=== PATIENT | male | born 1965 | race Caucasian/White ===

== ENCOUNTER 2024-07-31 08:07 | Emergency (ER) | payer MEDICAID ==
[~2024-07-31] VITALS: Ht 175.3 cm; Wt 73.5 kg
[~2024-07-31 08:07] MED LIST: AZIT500T66 PO; LEVO500T91 PO; PROM1SOL4 PO
--- NOTE | 2024-07-31 08:27 | ECG ---
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
--- NOTE | 2024-07-31 08:31 | ED.PDOC ---
SOB-HPI HPI Comments 59-year-old male with PMHx Emphysema, COPD, HTN presents with a chief complaint of SOB, cough, and chest pain x 3 days. Patient states that his pain is localized to his sternum, nonradiating, is worse when coughing, and rates his pain a 7/10. Patient reports that he is homeless right now and has an albuterol inhaler, but does not know how to use it. Patient is hypertensive on arrival at 219/123 and is sating at 93% on room air. Patient was placed on 2L/NC and is now sating at 95%. Patient is also tachycardic at 130s. Chief Complaint: Shortness of Breath Time Seen by MD: 08:15 Primary Care Provider: NONE Reviewed notes: Medications, Allergies Information Source: Patient Mode of Arrival: Ambulatory Severity: Moderate Timing: Days Duration: Since onset Context: At Rest PE Risk Factors: None History of: COPD Prehospital treatment: None Modifying Factors: Inhaler Associated Signs and Symptoms: Cough, Chest Pain Quality: Aching Radiation: No Radiation Location: Substernal If cough with SOB: Non-Productive Past Medical History PAST MEDICAL HISTORY: COPD Surgical History: Denies all surgeries Family History Family History: Reviewed,noncontributory to illness Social History Smoker: Cigarettes Alcohol: Denies ETOH Use Drugs: Denies Drug Use Lives In: Home Constitutional: denies: chills, diaphoresis, fatigue, fever, malaise, sweats, weakness, others EENTM: denies: blurred vision, double vision, ear bleeding, ear discharge, ear drainage, ear pain, ear ringing, eye pain, eye redness, hearing loss, mouth pain, mouth swelling, nasal discharge, nose bleeding, nose congestion, nose pain, photophobia, tearing, throat pain, throat swelling, voice changes, others Respiratory: reports: cough, shortness of breath; denies: hemoptysis, orthopnea, SOB at rest, SOB with excertion, stridor, wheezing, others Cardiovascular: reports: chest pain; denies: dizzy spells, diaphoresis, Dyspnea on exertion, edema, irregular heart beat, left arm pain, lightheadedness, palpitations, PND, syncope, others Gastrointestinal: denies: abdomen distended, abdominal pain, blood streaked bowels, constipated, diarrhea, dysphagia, difficulty swallowing, hematemesis, melena, nausea, poor appetite, poor fluid intake, rectal bleeding, rectal pain, vomiting, others Genitourinary: denies: burning, dysuria, flank pain, frequency, hematuria, incontinence, penile discharge, penile sore, pain, testicle pain, testicle swelling, urgency, others Neurological: denies: dizziness, fainting, headache, left sided numbness, left sided weakness, numbness, paresthesia, pre-existing deficit, right sided numbness, right sided weakness, seizure, speech problems, tingling, tremors, weakness, others Musculoskeletal: denies: back pain, gout, joint pain, joint swelling, muscle pain, muscle stiffness, neck pain, others Integumetry: denies: bruises, change in color, change in hair/nails, dryness, laceration, lesions, lumps, rash, wounds, others Allergic/Immunocompromised: denies: Difficulty Healing, Frequent Infections, Hives, Itching, others Hematologic/Lymphatic: denies: anemia, blood clots, easy bleeding, easy bruising, swollen glands, others Endocrine: denies: excessive hunger, excessive sweating, excessive thirst, excessive urination, flushing, intolerance to cold, intolerance to heat, unexplained weight gain, unexplained weight loss, others Psychiatric: denies: anxiety, bipolar disorder, depression, hopeless, panic disorder, schizophrenia, sleepless, suicidal, others All Other Systems: Reviewed and Negative Physical Exam General Appearance: Moderate Distress, Normal HEENT: Normal ENT Inspection, Pharynx Normal, TMs Normal Neck: Full Range of Motion, Non-Tender, Normal, Normal Inspection Respiratory: Other (Decreased Air Movement in Lungs) Cardiovascular: No Edema, No JVD, No Murmur, No Gallop, Normal Peripheral Pulses, Tachycardia Breast Exam: Deferred Gastrointestinal: No Organomegaly, Non Tender, No Pulsatile Mass, Normal Bowel Sounds, Soft Genitalia: Deferred Pelvic: Deferred Rectal: Deferred Extremities: No calf tenderness, Normal capillary refill, Normal inspection, Normal range of motion, Non-tender, No pedal edema Musculoskeletal : Apperance: Normal Neurologic: Alert, director of materials management II-XII nml as Tested, No Motor Deficits, Normal Affect, Normal Mood, No Sensory Deficits Cerebellar Function: Normal Reflexes: Normal Skin: Dry, Normal Color, Warm Lymphatic: No Adenopathy EKG EKG : Pulse Rate (adult): 123 [place]: Normal Cardiac Rhythm: ST Block: None Hypertrophy: None ST: Normal Was a procedure done? Was a procedure done?: No Differential Dx Differential Diagnosis: Asthma, Bronchitis, CHF, COPD, Hypertension, Pneumonia, Pneumothorax, Pulmonary Embolism, Respiratory Distress, Pharyngitis, URI X-Ray, Labs, Meds, VS Vital Signs Date Time Temp Pulse Resp B/P (MAP) Pulse Ox O2 Delivery O2 Flow Rate FiO2 07/31/24 08:59 Nasal Cannula* 2 28 07/31/24 08:57 24 98 Room Air* 0 21 07/31/24 08:56 98.6 104 17 152/98 (116) 99 98.6 07/31/24 08:42 166/123 07/31/24 08:31 123 07/31/24 08:21 123 07/31/24 08:18 28 96 Nasal Cannula 2.0 07/31/24 08:18 98.5 134 28 202/131 (154) 96 Lab Test 07/31/24 08:24 Range/Units White Blood Count 9.5 4.4-10.8 10^3/uL Red Blood Count 5.08 4.5-5.90 10^6/uL Hemoglobin 15.5 13.5-17.5 g/dL Hematocrit 45.1 41.0-53.0 % Mean Corpuscular Volume 88.7 80.0-100.0 fL Mean Corpuscular Hemoglobin 30.5 28.0-32.0 pg Mean Corpuscular Hemoglobin Concent 34.4 32.0-36.0 g/dL Red Cell Distribution Width 13.3 11.8-14.3 % Platelet Count 243 140-450 10^3/uL Mean Platelet Volume 6.7 L 6.9-10.8 fL Neutrophils (%) (Auto) 87.0 H 37.0-80.0 % Lymphocytes (%) (Auto) 5.2 L 10.0-50.0 % Monocytes (%) (Auto) 6.2 0.0-12.0 % Eosinophils (%) (Auto) 1.1 0.0-7.0 % Basophils (%) (Auto) 0.5 0.0-2.0 % Neutrophils # (Auto) 8.3 1.6-8.6 10 ^3/uL Lymphocytes # (Auto) 0.5 0.4-5.4 10 ^3/uL Monocytes # (Auto) 0.6 0-1.3 10 ^3/uL Eosinophils # (Auto) 0.1 0-0.8 10 ^3/uL Basophils # (Auto) 0 0-0.2 10 ^3/uL Nucleated Red Blood Cells 0.1 % Sodium Level 135 L 136-145 mmol/L Potassium Level 3.8 3.5-5.1 mmol/L Chloride Level 100 98-107 mmol/L Carbon Dioxide Level 29 20-31 mmol/L Anion Gap 6 5-15 Blood Urea Nitrogen 11 9-23 mg/dL Creatinine 1.29 0.700-1.30 mg/dL Glomerular Filtration Rate Calc 64 >90 mL/min BUN/Creatinine Ratio 8.5 L 10.0-20.0 Serum Glucose 121 H 74-106 mg/dL Calcium Level 9.5 8.7-10.4 mg/dL Total Bilirubin 0.5 0.2-1.0 mg/dL Aspartate Amino Transferase (AST) 19 13-40 U/L Alanine Aminotransferase (ALT) 15 7-40 U/L Alkaline Phosphatase 82 46-116 U/L Troponin I High Sensitivity 8 </=54 ng/L Total Protein 7.3 5.7-8.2 g/dL Albumin 4.7 3.2-4.8 g/dL Current Medications Medications (Trade) Dose Ordered Sig/Sherine Route Start Time Stop Time Status Last Admin Hydralazine HCl (Apresoline Injection) 5 mg ONCE ONCE IV 07/31/24 08:30 07/31/24 08:31 DC 07/31/24 08:42 Albuterol (Ventolin Medneb) 5 mg ONCE ONCE NEB 07/31/24 08:30 07/31/24 08:31 DC 07/31/24 08:58 Ipratropium [place] (Atrovent Medneb) 0.5 mg ONCE ONCE NEB 07/31/24 08:30 07/31/24 08:31 DC 07/31/24 08:57 Dexamethasone Sodium Phosphate (Decadron Injection) 10 mg ONCE ONCE IV 07/31/24 08:30 07/31/24 08:31 DC 07/31/24 08:42 PATIENT: RAF PEGUERO FROYLANCCT: [id number]: [id number] : 1965 LOC: ER ROOM / BED: / AGE / SEX: 59 / M ADM STATUS: REG ER SERVICE 3 ORDERING PHYSICIAN: WILL CROCKER MD PROCEDURE(s): CXR2 - CHEST TWO VIEWS ROUTINE REASON: ro pna ORDER NUMBER(s): [id number], ACCESSION NUMBER(s): [id number] CLINICAL INFORMATION: 59 years old, Male; rule out pneumonia. TECHNIQUE: Frontal and lateral chest radiographs were obtained. COMPARISON: Radiograph dated 10/11/2023. FINDINGS: Lungs: Prominent interstitial opacities in the right mid lung and left lung base, appear stable compared to the prior exam suggesting chronic etiology such as interstitial lung disease or scarring. Similar-appearing emphysematous c hanges with prominent lucency in the left upper lung, likely due to bullous disease, unchanged. Cardiac: Heart size is within normal limits. Pulmonary vasculature: Unremarkable Mediastinum/sho: Within normal limits. Bones: No evidence of acute osseous abnormality. Other: No other significant finding. IMPRESSION: 1. Stable interstitial opacities in the right mid lung and left lung base may be sequela of chronic interstitial lung disease or scarring, similar to the prior radiographs. Correlate with clinical findings. No dense focal consolidation. 2. Emphysematous changes with prominent lucency in the left upper lung, likely due to bullous emphysematous changes, similar to prior exams. ATED BY: RAF FLYNN DO DICTATED DATE/TIME: 07/31/24904 SIGNED BY: RAF FLYNN DO SIGNED DATE/TIME: 07/31/24904 59-year-old male presents here with shortness of breath and high blood pressure. Patient was found to be saturating 93 96%, but had significant work of breathing. He was tachycardic at 134. Patient was found to have a blood pressure of 202/131. I was asked to see the patient immediately upon his arrival given his work of breathing his heart rate and his blood pressure. Concern for immediate deterioration. At this time I have given the patient br eathing treatments steroids blood work he was ordered. A CBC CMP were done which demonstrates no acute abnormality. EKG with no significant ST changes. First set troponin is negative. Chest x-ray demonstrates stable interstitial opacities in the right mid lung and left lung base. And emphysematous changes. Patient's symptoms did improve with treatment however plan was to admit the patient given his low oxygen saturation, hypertensive urgency and tachycardia given his work of breathing. However nursing staff unable to locate him at 10:10 a.m. as patient had eloped with IV in place. [facility]'s department has been called. Time of 1ST Reevaluation: 08:45 Reevaluation 1ST: Unchanged Patient Education/Counseling: Diagnosis, Treatment, Prognosis Family Education/Counseling: Diagnosis, Treatment, Prognosis Departure 1 Departure Time of Disposition: 10:15 Impression: Primary Impression: COPD exacerbation Additional Impression: Hypertensive urgency Disposition: 07 LEFT AWOL/ELOPED Admit to: Tele Condition: Fair Critical Care Note Critical Care Time?: Yes (35 min-critical care time only) Critical care comment: Patient immediately seen by myself in triage as concern for immediate de terioration due to his work of breathing, extremely high blood pressure and heart rate. Time was spent evaluating the patient, ordering treatments, multiple re-evaluations, directing care with nursing staff, admitting the patient. Stability Stability form required: No Heart Score Heart Score: Heart Score Response (Comments) Value History Highly Suspicious 2 EKG Normal 0 Age 45-64 1 Risk Factors 1 or 2 risk factors 1 Troponin Normal limit 0 Total 4 I personally scribed for WILL CROCKER MD ([email or web address]) on 07/31/24 at 08:31. Electronically submitted by Tim Chou ([email or web address]). I personally scribed for WILL CROCKER MD ([email or web address]) on 07/31/24 at 09:50. Electronically submitted by Tim Chou ([email or web address]). WILL CROCKER MD Jul 31, 2024 08:31
[2024-07-31 08:40] LABS: Basophils # (auto) 0 10 ^3/uL (0-0.2); Basophils % (auto) 0.5 % (0.0-2.0); Eosinophils # (auto) 0.1 10 ^3/uL (0-0.8); Eosinophils % (auto) 1.1 % (0.0-7.0); Hematocrit 45.1 % (41.0-53.0); Hemoglobin 15.5 g/dL (13.5-17.5); Lymphocytes # (auto) 0.5 10 ^3/uL (0.4-5.4); Lymphocytes % (auto) 5.2 % (10.0-50.0); Mean Corpuscular Hemoglobin 30.5 pg (28.0-32.0); Mean Corpuscular Hgb Conc. 34.4 g/dL (32.0-36.0); Mean Corpuscular Volume 88.7 fL (80.0-100.0); Monocytes # (auto) 0.6 10 ^3/uL (0-1.3); Monocytes % (auto) 6.2 % (0.0-12.0); Neutrophils # (auto) 8.3 10 ^3/uL (1.6-8.6); Nucleated Red Blood Cells % 0.1 %; Platelet Count (auto) 243 10^3/uL (140-450); Red Blood Cells 5.08 10^6/uL (4.5-5.90); Red Cell Distribution Width 13.3 % (11.8-14.3); White Blood Cell 9.5 10^3/uL (4.4-10.8)
[2024-07-31] MEDS: hydrALAZINE HCL 20 MG/ML VL IV ONE (08:42)
[2024-07-31] MEDS: DexAMETHasone SOD PHOS 10MG/1ML VIAL INJ IV ONE (08:42)
[2024-07-31 08:56] VITALS: BP 152/98; PULSE 104; TEMP 98.6
[2024-07-31 08:57] VITALS: RESP 24; O2SAT 98
[2024-07-31 08:57] LABS: Alanine Aminotransferase 15 U/L (7-40); Albumin 4.7 g/dL (3.2-4.8); Alkaline Phosphatase 82 U/L (46-116); Anion Gap 6 (5-15); Aspartate Aminotransferase 19 U/L (13-40); BUN/Creatinine Ratio 8.5 (10.0-20.0); Bilirubin, Total 0.5 mg/dL (0.2-1.0); Blood Urea Nitrogen 11 mg/dL (9-23); Calcium 9.5 mg/dL (8.7-10.4); Carbon Dioxide 29 mmol/L (20-31); Chloride 100 mmol/L (98-107); Potassium 3.8 mmol/L (3.5-5.1)
[2024-07-31] MEDS: IPRATROPIUM BROM 0.5 MG/2.5ML INH SOL NEB ONE (08:57)
[2024-07-31 08:58] LABS: Total Protein 7.3 g/dL (5.7-8.2)
[2024-07-31] MEDS: ALBUTEROL SULF 2.5 MG/0.5ML(0.5%) NEB SOLN NEB ONE (08:58)
[2024-07-31 09:01] LABS: Glucose 121 mg/dL (74-106); Sodium 135 mmol/L (136-145)
--- NOTE | 2024-07-31 09:08 | DVH ---
CLINICAL INFORMATION: 59 years old, Male; rule out pneumonia. TECHNIQUE: Frontal and lateral chest radiographs were obtained. COMPARISON: Radiograph dated 10/11/2023. FINDINGS: Lungs: Prominent interstitial opacities in the right mid lung and left lung base, appear stable yuriy red to the prior exam suggesting chronic etiology such as interstitial lung disease or scarring. Gia lar-appearing emphysematous changes with prominent lucency in the left upper lung, likely due to bull ous disease, unchanged. Cardiac: Heart size is within normal limits. Pulmonary vasculature: Unremarkable Mediastinum/sho: Within normal limits. Bones: No evidence of acute osseous abnormality. Other: No other significant finding. IMPRESSION: 1. Stable interstitial opacities in the right mid lung and left lung base may be sequela of chronic i nterstitial lung disease or scarring, similar to the prior radiographs. Correlate with clinical findi ngs. No dense focal consolidation. 2. Emphysematous changes with prominent lucency in the left upper lung, likely due to bullous emphyse matous changes, similar to prior exams.
== END 2024-07-31 10:30 | disposition left against medical advice (07) ==
LOC: ER 08:07
DX: J44.1 Chronic obstructive pulmonary disease with (acute) exacerbation (principal); I16.0 Hypertensive urgency; F17.210 Nicotine dependence, cigarettes, uncomplicated
CPT/HCPCS: 36415; 71046; 80053; 84484; 85025; 93005; 94640; 96374; 96375; 99291; J0360; J1100

== ENCOUNTER 2024-08-10 03:42 | Inpatient (IN) | payer MEDICAID ==
[~2024-08-10] VITALS: Ht 175.3 cm; Wt 68.8 kg
[2024-08-10] VITALS (7 sets, daily range): BP systolic 120–147; BP diastolic 70–100; PULSE 98–112; RESP 15–22; TEMP 97.9–98; O2SAT 90–98
--- NOTE | 2024-08-10 04:02 | ED.PDOC ---
History of Present Illness HPI Comments 59 y/o M, with a Hx of COPD and anxiety and cigarette use, presents with c/o shortness of breath, today. Patient is a poor historian and endorses on recent unprovoked onset of difficulty breathing for unknown duration of time. At time of initial assessment, patient was found with a Spo2 of 85%RA, respiratory rate of 24, pulse rate of 105, and a blood pressure of 186/117, with SpO2 improving to 93% s/p 4lpm O2 NC placement. Patient denies having any chest pain, cough, fever, chills, or other associated symptoms or modifiers at this time. Time Seen by MD: 03:50 Primary Care Provider: NONE Reviewed Notes: Nurses Notes, Medications, Allergies Allergies: Coded Allergies: Penicillins (Verified Allergy, Unknown, 10/11/23) Home Meds Active Scripts Promethazine-Dm (Promethazine Dm 6.25-15 mg/5Ml) 1 Melany Melany, 5 ML PO TID, #180 ML Prov:RAHEEM PEARSON 10/11/23 Azithromycin (Azithromycin) 500 Mg Tab, 1 TAB PO DAILY, #5 TAB Prov:RAHEEM PEARSON 10/11/23 Levofloxacin Hemihydrate (LEVAQUIN 500 MG) 500 Mg Tab, 1 TAB PO DAILY, #10 TAB Prov:RAHEEM PEARSON 10/11/23 Information Source: Patient Past Medical History PAST MEDICAL HISTORY: COPD Surgical History: Denies all surgeries Family History Family History: Reviewed,noncontributory to illness Social History Smoker: Cigarettes Alcohol: Denies ETOH Use Drugs: Denies Drug Use Lives In: Home Respiratory: reports: shortness of breath All Other Systems: Reviewed and Negative (negative unless otherwise stated above or in HPI) Physical Exam General Appearance: No Apparent Distress, Normal HEENT: Normal ENT Inspection, Pharynx Normal, TMs Normal Neck: Full Range of Motion, Non-Tender, Normal, Normal Inspection Respiratory: Chest Non-Tender, Decreased Breath Sounds, Lungs Clear, No Accessory Muscle Use, No Respiratory Distress Cardiovascular: No Edema, No JVD, No Murmur, No Gallop, Normal Peripheral Pulses, Regular Rate/Rhythm Breast Exam: Deferred Gastrointestinal: No Organomegaly, Non Tender, No Pulsatile Mass, Normal Bowel Sounds, Soft Genitalia: Deferred Pelvic: Deferred Rectal: Deferred Extremities: No calf tenderness, Normal capillary refill, Normal inspection, Normal range of motion, Non-tender, No pedal edema Musculoskeletal : Apperance: Normal Neurologic: Alert, retail team member II-XII nml as Tested, No Motor Deficits, Normal Affect, Normal Mood, No Sensory Deficits Cerebellar Function: Normal Reflexes: Normal Skin: Dry, Normal Color, Warm Lymphatic: No Adenopathy Was a procedure done? Was a procedure done?: No EKG EKG : Pulse Rate (adult): 90 [place]: Normal Cardiac Rhythm: NSR Block: None Hypertrophy: None ST: Normal Differential Dx Considerations may include: COPD exacerbation, URI, viral syndrome, bronchitis X-Ray, Labs, Meds, VS Vital Signs Date Time Temp Pulse Resp B/P (MAP) Pulse Ox O2 Delivery O2 Flow Rate FiO2 08/10/24 04:19 90 08/10/24 04:15 90 08/10/24 04:12 18 97 Nasal Cannula* 4 36 08/10/24 03:49 98.2 111 22 186/117 (140) 86 08/10/24 03:49 22 86 Room Air* 0 21 Lab Test 08/10/24 04:09 08/10/24 04:06 Range/Units White Blood Count 9.7 4.4-10.8 10^3/uL Red Blood Count 4.77 4.5-5.90 10^6/uL Hemoglobin 14.6 13.5-17.5 g/dL Hematocrit 41.9 41.0-53.0 % Mean Corpuscular Volume 88.0 80.0-100.0 fL Mean Corpuscular Hemoglobin 30.7 28.0-32.0 pg Mean Corpuscular Hemoglobin Concent 34.9 32.0-36.0 g/dL Red Cell Distribution Width 13.9 11.8-14.3 % Platelet Count 346 140-450 10^3/uL Mean Platelet Volume 6.6 L 6.9-10.8 fL Neutrophils (%) (Auto) 68.0 37.0-80.0 % Lymphocytes (%) (Auto) 18.3 10.0-50.0 % Monocytes (%) (Auto) 8.9 0.0-12.0 % Eosinophils (%) (Auto) 3.6 0.0-7.0 % Basophils (%) (Auto) 1.2 0.0-2.0 % Neutrophils # (Auto) 6.6 1.6-8.6 10 ^3/uL Lymphocytes # (Auto) 1.8 0.4-5.4 10 ^3/uL Monocytes # (Auto) 0.9 0-1.3 10 ^3/uL Eosinophils # (Auto) 0.3 0-0.8 10 ^3/uL Basophils # (Auto) 0.1 0-0.2 10 ^3/uL Nucleated Red Blood Cells 0.0 % Sodium Level 139 136-145 mmol/L Potassium Level 3.2 L 3.5-5.1 mmol/L Chloride Level 102 98-107 mmol/L Carbon Dioxide Level 30 20-31 mmol/L Anion Gap 7 5-15 Blood Urea Nitrogen 16 9-23 mg/dL Creatinine 1.16 0.700-1.30 mg/dL Glomerular Filtration Rate Calc 73 >90 mL/min BUN/Creatinine Ratio 13.8 10.0-20.0 Serum Glucose 105 74-106 mg/dL Calcium Level 9.5 8.7-10.4 mg/dL Total Bilirubin 0.7 0.2-1.0 mg/dL Aspartate Amino Transferase (AST) 24 13-40 U/L Alanine Aminotransferase (ALT) 24 7-40 U/L Alkaline Phosphatase 76 46-116 U/L B-Type Natriuretic Peptide 21.76 0-100 pg/mL Total Protein 6.9 5.7-8.2 g/dL Albumin 4.1 3.2-4.8 g/dL Blood Gas Specimen Type Arterial Blood Gas Sample Site Right radial Blood Gas Patient Temperature 37.0 Arterial Blood Date Drawn [id number] Arterial Blood pH 7.481 H 7.350-7.450 Arterial Blood Partial Pressure CO2 37.1 35.0-48.0 mmHg Arterial Blood Partial Pressure O2 75.9 L 83.0-108.0 mmHg Arterial Blood HCO3 27.1 21.0-28.0 mmol/L Arterial Blood Oxygen Saturation 94.6 94.0-98.0 % Arterial Blood Base Excess 3.7 H -2.0-3.0 mmol/L Arterial Blood Oxyhemoglobin 92.9 L 94.0-98.0 % Arterial Blood Carboxyhemoglobin 1.3 0.5-1.5 % Arterial Blood Methemoglobin 0.5 0.0-1.5 % Emir Test Yes Blood Gas Total Hemoglobin 15.60 13.5-17.5 g/dL Blood Gas Liter Flow 4.00 Blood Gas Modality Nasal cannula FiO2 % 36.0 Current Medications Medications (Trade) Dose Ordered Sig/Sherine Route Start Time Stop Time Status Last Admin Albuterol (Ventolin Medneb) 5 mg ONCE ONCE N 08/10/24 04:00 08/10/24 04:01 DC 08/10/24 04:12 Ipratropium [place] (Atrovent Medneb) 1 mg ONCE ONCE N 08/10/24 04:00 08/10/24 04:01 DC 08/10/24 04:12 CBC is normal. Two is 76 on 3 liters/minute. The patient received DuoNeb Rocephin and Solu-Medrol. Chest x-ray pending. The patient will be admitted to the hospitalist for further evaluation and care. Time of 1ST Reevaluation: 04:20 Reevaluation 1ST: Unchanged Patient Education/Counseling: Diagnosis, Treatment Family Education/Counseling: No Family Present Departure 1 Departure Time of Disposition: 04:59 Impression: Primary Impression: COPD exacerbation Disposition: 09 ADMITTED INPATIENT Admit to: Tele Condition: Guarded Critical Care Note Critical Care Time?: Yes (35 min-critical care time only) Stability Stability form required: No Heart Score Heart Score: Heart Score Response (Comments) Value History Slightly Suspicious 0 EKG Normal 0 Age 45-64 1 Risk Factors 1 or 2 risk factors 1 Troponin N/A 0 Total 2 I personally scribed for VALORIE SNELL MD ([email or web address]) on 08/10/24 at 04:02. Electronically submitted by Gabe Montelongo ([email or web address]). I personally scribed for VALORIE SNELL MD (MARIA G) on 08/10/24 at 04:04. Electronically submitted by Gabe Montelongo ([email or web address]). I personally scribed for VALORIE SNELL MD (MARIA G) on 08/10/24 at 04:19. Electronically submitted by Gabe Montelongo ([email or web address]). VALORIE SNELL MD Aug 10, 2024 04:02
[2024-08-10 04:10] LABS: Base Excess 3.7 mmol/L (-2.0-3.0)
[2024-08-10] MEDS: ALBUTEROL SULF 2.5 MG/0.5ML(0.5%) NEB SOLN HHN ONE (04:12)
[2024-08-10] MEDS: IPRATROPIUM BROM 0.5 MG/2.5ML INH SOL HHN ONE (04:12)
--- NOTE | 2024-08-10 04:16 | ECG ---
[facility] Test Date: 2024-08-10 Test Time: 04:15:04 Pat Name: ROBERTO PEGUERO Department: ED Room: Gender: M Qualitative Researcher: : 1965 Requested By: VALORIE SNELL Order Number: [id number] Reading MD: Imer Joseph Measurements Intervals [place] Rate: 90 P: 78 [place]: 150 QRS: 76 QRSD: 85 T: 67 QT: 384 QTc: 470 Interpretive Statements Sinus rhythm Electronically Signed On 08-10-2024 17:52:02 PST by Imer Joseph Please click the below link to view image of tracing.
[2024-08-10 04:20] LABS: Basophils # (auto) 0.1 10 ^3/uL (0-0.2); Basophils % (auto) 1.2 % (0.0-2.0); Eosinophils # (auto) 0.3 10 ^3/uL (0-0.8); Eosinophils % (auto) 3.6 % (0.0-7.0); Hematocrit 41.9 % (41.0-53.0); Hemoglobin 14.6 g/dL (13.5-17.5); Lymphocytes # (auto) 1.8 10 ^3/uL (0.4-5.4); Lymphocytes % (auto) 18.3 % (10.0-50.0); Mean Corpuscular Hemoglobin 30.7 pg (28.0-32.0); Mean Corpuscular Hgb Conc. 34.9 g/dL (32.0-36.0); Monocytes # (auto) 0.9 10 ^3/uL (0-1.3); Monocytes % (auto) 8.9 % (0.0-12.0); Neutrophils # (auto) 6.6 10 ^3/uL (1.6-8.6); Platelet Count (auto) 346 10^3/uL (140-450); Red Blood Cells 4.77 10^6/uL (4.5-5.90); Red Cell Distribution Width 13.9 % (11.8-14.3); White Blood Cell 9.7 10^3/uL (4.4-10.8)
[2024-08-10 04:49] LABS: Alanine Aminotransferase 24 U/L (7-40); Albumin 4.1 g/dL (3.2-4.8); Alkaline Phosphatase 76 U/L (46-116); Anion Gap 7 (5-15); Aspartate Aminotransferase 24 U/L (13-40); BUN/Creatinine Ratio 13.8 (10.0-20.0); Bilirubin, Total 0.7 mg/dL (0.2-1.0); Blood Urea Nitrogen 16 mg/dL (9-23); Calcium 9.5 mg/dL (8.7-10.4); Carbon Dioxide 30 mmol/L (20-31); Chloride 102 mmol/L (98-107); Glucose 105 mg/dL (74-106); Sodium 139 mmol/L (136-145); Total Protein 6.9 g/dL (5.7-8.2)
[2024-08-10 04:52] LABS: Potassium 3.2 mmol/L (3.5-5.1)
--- NOTE | 2024-08-10 05:13 | DVH ---
EXAM: XR Cervical Spine, 6 or More Views CLINICAL INDICATION: sob TECHNIQUE: Frontal, lateral, oblique and flexion/extension views of the cervical spine. COMPARISON: XY CHEST PORTABLE on DOS: 10/11/23 FINDINGS: VERTEBRAE: Unremarkable. No acute fracture. Normal alignment. No instability. DISC SPACES: No acute findings. No significant narrowing. SOFT TISSUES: Unremarkable. OTHER FINDINGS: . None. IMPRESSION: No acute fracture. Bibasilar Emphysematous lung changes. Lucency in the left upper lung field is similar to the prior exam, likely bullous. If symptoms persist, further evaluation with CT is recommended.
[2024-08-10] MEDS: methylPREDNISolone SOD SUCC 125 MG/2 ML VL IV ONE (08:23)
[2024-08-10] MEDS ORDERED: ACETAMINOPHEN 325 MG TAB PO PRN (12:00)
[2024-08-10] MEDS ORDERED: DOCUSATE SOD 100 MG CAP PO PRN (12:00)
[2024-08-10] MEDS ORDERED: HYDROcodone-ACET 5/325MG TAB PO PRN (12:00)
[2024-08-10] MEDS ORDERED: ONDANSETRON HCL 4 MG/2 ML VIAL IV PRN (12:00)
[2024-08-10] MEDS ORDERED: NITROGLYCERIN 0.4 MG SL TAB SL PRN (12:00)
[2024-08-10] MEDS ORDERED: MORPHINE SULFATE INJ 2 MG/ml SYRG IV PRN (12:00)
[2024-08-10] MEDS: AZITHROMYCIN 500MG/ 250ML 250 ML IV ONE (12:20)
--- NOTE | 2024-08-10 12:26 | DVHHP2 ---
History of Present Illness Reason for Visit: Shortness of breath History of Present Illness Raf Kessler is a 59-year-old man with past medical history of hyperlipidemia, hypertension, COPD, and anxiety, who comes in with complaints of shortness of breath. Patient states that his shortness of breath started about a week ago and worsened causing him to come in. Patient states he is homeless and lives in his car, he does not take any medications because he has not been in to see a primary care provider. He states his shortness of breath is exasperated by his anxiety and stress. Patient does have wheezing throughout lung vega and O2 sats are 88-90% on RA. Cardiovascular: HTN, hyperipidemia Pulmonary: COPD Past Surgical History: Other (ear surgery) Smoke: 1 pack per day ALCOHOL: occassional Drugs: Other (states he last did methamphetamines and marijuana a couple months ago) Lives: Homeless Domestic Violence: Neg Review of Systems Constitutional: No: Fever, Chills, Sweats, Weakness, Malaise, Other Eyes: No: Pain, Vision change, Conjunctivae inflammation, Eyelid inflammation, Other, Redness ENT: No: Ear pain, Ear discharge, Nose pain, Nose discharge, Nose congestion, Mouth pain, Mouth swelling, Throat pain, Throat swelling, Other Respiratory: Cough, Shortness of breath, SOB with excertion, Wheezing, Sputum; No: Dry, Hemoptysis, Pleuritic Pain, Wheezing, Other Cardiovascular: No: Chest Pain, Palpitations, Orthopnea, Paroxysmal Noc. Dyspnea, Edema, Lt Headedness, Other Gastrointestinal: No: Nausea, Vomiting, Abdominal Pain, Diarrhea, Constipation, Melena, Hematochezia, Other Genitourinary: No Dysuria, No Frequency, No Incontinence, No Hematuria, No Retention, No Other Musculoskeletal: No: other, neck pain, shoulder pain, arm pain, back pain, hand pain, leg pain, foot pain Skin: No: Rash, Lesions, Jaundice, Bruising, Other Neurological: No: Weakness, Numbness, Incoordination, Change in speech, Confusion, Seizures, Other Allergies: Coded Allergies: Penicillins (Verified Allergy, Unknown, 10/11/23) Exam Vital Signs Vital Signs Date Time Temp Pulse Resp B/P (MAP) Pulse Ox O2 Delivery O2 Flow Rate FiO2 08/10/24 08:30 100 22 90 Room Air* 0 21 08/10/24 08:30 154/114 (127) 08/10/24 06:59 97.9 97.9 General Appearance: Alert, Oriented X3, Cooperative, mild distress HEENT: Atraumatic, PERRLA Respiratory: Other (diminished breath sounds and wheezing bilaterally) Cardiovascular: Regular rate, Normal S1, Normal S2, No murmurs Abdominal: Normal bowel sounds, Soft, No tenderness Extremities: No cyanosis, No edema, Normal pulses Skin: No rashes, No breakdown Neuro: Normal speech Psych/Mental Status: Mental status NL, Mood NL, Other Labs/Xrays Labs Test 08/10/24 04:09 08/10/24 04:06 Range/Units White Blood Count 9.7 4.4-10.8 10^3/uL Red Blood Count 4.77 4.5-5.90 10^6/uL Hemoglobin 14.6 13.5-17.5 g/dL Hematocrit 41.9 41.0-53.0 % Mean Corpuscular Volume 88.0 80.0-100.0 fL Mean Corpuscular Hemoglobin 30.7 28.0-32.0 pg Mean Corpuscular Hemoglobin Concent 34.9 32.0-36.0 g/dL Red Cell Distribution Width 13.9 11.8-14.3 % Platelet Count 346 140-450 10^3/uL Mean Platelet Volume 6.6 L 6.9-10.8 fL Neutrophils (%) (Auto) 68.0 37.0-80.0 % Lymphocytes (%) (Auto) 18.3 10.0-50.0 % Monocytes (%) (Auto) 8.9 0.0-12.0 % Eosinophils (%) (Auto) 3.6 0.0-7.0 % Basophils (%) (Auto) 1.2 0.0-2.0 % Neutrophils # (Auto) 6.6 1.6-8.6 10 ^3/uL Lymphocytes # (Auto) 1.8 0.4-5.4 10 ^3/uL Monocytes # (Auto) 0.9 0-1.3 10 ^3/uL Eosinophils # (Auto) 0.3 0-0.8 10 ^3/uL Basophils # (Auto) 0.1 0-0.2 10 ^3/uL Nucleated Red Blood Cells 0.0 % Sodium Level 139 136-145 mmol/L Potassium Level 3.2 L 3.5-5.1 mmol/L Chloride Level 102 98-107 mmol/L Carbon Dioxide Level 30 20-31 mmol/L Anion Gap 7 5-15 Blood Urea Nitrogen 16 9-23 mg/dL Creatinine 1.16 0.700-1.30 mg/dL Glomerular Filtration Rate Calc 73 >90 mL/min BUN/Creatinine Ratio 13.8 10.0-20.0 Serum Glucose 105 74-106 mg/dL Calcium Level 9.5 8.7-10.4 mg/dL Total Bilirubin 0.7 0.2-1.0 mg/dL Aspartate Amino Transferase (AST) 24 13-40 U/L Alanine Aminotransferase (ALT) 24 7-40 U/L Alkaline Phosphatase 76 46-116 U/L B-Type Natriuretic Peptide 21.76 0-100 pg/mL Total Protein 6.9 5.7-8.2 g/dL Albumin 4.1 3.2-4.8 g/dL Blood Gas Specimen Type Arterial Blood Gas Sample Site Right radial Blood Gas Patient Temperature 37.0 Arterial Blood Date Drawn [id number] Arterial Blood pH 7.481 H 7.350-7.450 Arterial Blood Partial Pressure CO2 37.1 35.0-48.0 mmHg Arterial Blood Partial Pressure O2 75.9 L 83.0-108.0 mmHg Arterial Blood HCO3 27.1 21.0-28.0 mmol/L Arterial Blood Oxygen Saturation 94.6 94.0-98.0 % Arterial Blood Base Excess 3.7 H -2.0-3.0 mmol/L Arterial Blood Oxyhemoglobin 92.9 L 94.0-98.0 % Arterial Blood Carboxyhemoglobin 1.3 0.5-1.5 % Arterial Blood Methemoglobin 0.5 0.0-1.5 % Emir Test Yes Blood Gas Total Hemoglobin 15.60 13.5-17.5 g/dL Blood Gas Liter Flow 4.00 Blood Gas Modality Nasal cannula FiO2 % 36.0 Technique: AP view of the chest. Findings: Bibasilar atelectasis or pneumonia. Heart is not enlarged. Apparent lucency of the left upper lung field, similar to the prior exam. Stable osseous structures. Findings IMPRESSION: 1. Emphysematous lung changes. Lucency in the left upper lung field is similar to the prior exam, likely bullous. If symptoms persist, further evaluation with CT is recommended. 2. Bibasilar atelectasis or pneumonia. Assessment/Plan Assessment/Plan Assessment: COPD exacerbation with hypoxemia, Hypokalemia, Anxiety, Hypertension, Plan: Admit to Tele, Scheduled breathing treatments, Supplemental oxygen as needed, IV steroids, IV antibiotics, Manage/Monitor electrolytes closely, Anti-hypertensive medications started, Plan discussed with: Patient My Orders Orders - JIHANCARLOSQUIANA R ENROLLMENT PROCESSOR Procedure Category Date Status Time Admit ADMIT 08/10/24 Verified 11:49 Code Status CODE 08/10/24 Verified 11:49 Sodium Chloride Lock PHA 08/10/24 Verified (Saline Lock Ns) 14:00 Hydrocodone-Acet PHA 08/10/24 Verified 5/325mg Tab (Capron 12:00 Ondansetron Hcl PHA 08/10/24 Verified (Zofran) 12:00 Docusate Sodium PHA 08/10/24 Verified Capsule (Colace 12:00 Complete Blood Count LAB 08/11/24 Verified 04:00 Comprehensive LAB 08/11/24 Verified Metabolic Panel 04:00 Cardiac DIET 08/10/24 Verified Diet-2gna,Lofat,Lochol Lunch Condition: Serious AROLDO 08/10/24 Verified 11:49 Acetaminophen Tablet PHA 08/10/24 Verified (Tylenol Tablet) 12:00 Nitroglycerin PHA 08/10/24 Verified Sublingual (Ntrostat 12:00 Morphine Sulfate PHA 08/10/24 Verified Injection 12:00 Stat Ekg For Chest AROLDO 08/10/24 Verified Pain 11:49 Notify Md Of Changes AROLDO 08/10/24 Verified From Base 11:49 Administration Manager For [facility] 08/10/24 Verified 24 Hours 11:49 Emergency Dysrhythmia AROLDO 08/10/24 Verified Protocol 11:49 Rhythm Strips Once AROLDO 08/10/24 Verified Every Shift 11:49 Oxygen By Nasal RT 08/10/24 Verified Cannula 11:49 Albuterol Medneb PHA 08/10/24 Verified (Ventolin Medneb) 12:00 Ipratropium Medneb PHA 08/10/24 Verified (Atrovent Medneb) 12:00 Methylprednisolone PHA 08/10/24 Verified Sod Succ (Solu Medrol 22:00 Azithromycin 500mg/ PHA 08/11/24 Verified 250ml (Zithromax 50 10:00 Azithromycin 500mg/ PHA 08/10/24 Verified 250ml (Zithromax 50 12:00 Date of Service: Aug 10, 2024 Billing Provider: QUIANA PILLAI Common Visit Codes: [id number] INP/OBS CARE (MOD) QUIANA PILLAI Aug 10, 2024 12:26
[2024-08-10] MEDS: ALBUTEROL SULF 2.5 MG/0.5ML(0.5%) NEB SOLN NEB PRN (12:44)
[2024-08-10] MEDS: IPRATROPIUM BROM 0.5 MG/2.5ML INH SOL NEB PRN (12:44)
[2024-08-10] MEDS: POTASSIUM EFFERVESENT TAB 25 MEQ GT ONE (13:31)
[2024-08-10] MEDS: LISINOPRIL 5 MG TAB PO ONE (13:32)
[2024-08-10] MEDS: ALBUTEROL SULF 2.5 MG/0.5ML(0.5%) NEB SOLN ONE (13:34)
[2024-08-10] MEDS: SODIUM CHLOR 0.9% PF (SALINE LOCK) 10ML VIAL/SYR IV SCH (13:34)
[2024-08-10] MEDS: IPRATROPIUM BROM 0.5 MG/2.5ML INH SOL ONE (13:34)
[2024-08-10] MEDS: IPRATROPIUM BROM 0.5 MG/2.5ML INH SOL NEB SCH (14:29)
[2024-08-10] MEDS: ALBUTEROL SULF 2.5 MG/0.5ML(0.5%) NEB SOLN NEB SCH (14:29)
[2024-08-10 16:46] LABS: Potassium 3.5 mmol/L (3.5-5.1)
[2024-08-10] MEDS ORDERED: POTASSIUM CHL 20 Meq TABLET PO ONE (17:15)
[2024-08-10] MEDS ORDERED: methylPREDNISolone SOD SUCC 40 MG/ML VL IV SCH (22:00)
[2024-08-11] MEDS ORDERED: LISINOPRIL 5 MG TAB PO SCH (10:00)
[2024-08-11] MEDS ORDERED: AZITHROMYCIN 500MG/ 250ML 250 ML IV SCH (10:00)
== END 2024-08-10 23:50 | disposition left against medical advice (07) | DRG 140 ==
LOC: ER 03:42 → TELE-WESTW 10:15 → ER 10:15 → TELE 11:49 → TELE-WESTW 23:48
PROVIDERS: ADMIT Nurse Practitioner Family; ATTEND Nurse Practitioner Family
DX: J44.1 Chronic obstructive pulmonary disease with (acute) exacerbation (principal); E78.5 Hyperlipidemia, unspecified; E87.6 Hypokalemia; F41.9 Anxiety disorder, unspecified; I10 Essential (primary) hypertension; R09.02 Hypoxemia; F17.210 Nicotine dependence, cigarettes, uncomplicated; Z88.0 Allergy status to penicillin; Z59.02 Unsheltered homelessness
CPT/HCPCS: 36415; 36600; 71045; 80053; 82805; 83735; 83880; 84132; 85025; 93005; 94640; 96365; 96375; 99291; G0378

== ENCOUNTER 2024-08-11 16:51 | Inpatient (IN) | payer MEDICAID ==
[~2024-08-11] VITALS: Ht 175.3 cm; Wt 75.0 kg
[2024-08-11] MEDS: DOXYCYCLINE 100MG/100ML 100 ML IV SCH (00:15)
--- NOTE | 2024-08-11 17:10 | ED.PDOC ---
SOB-HPI HPI Comments This is a 59-year-old male who comes in with chief complaint of shortness for breath. The patient was seen yesterday and was going to be admitted for COPD exacerbation. The patient stated that it was so busy that he decided not to stay and went home. The patient's smokes and states that he went home and then developed more shortness for breath. The patient was extremely tight when the paramedics arrived on scene. They stated that the patient was around 80% on room air. They did give the patient two breathing treatments EN route and the patient's oxygen saturation has increased. The patient denies any nausea or vomiting. Chief Complaint: Shortness of Breath Time Seen by MD: 16:52 Primary Care Provider: NONE Reviewed notes: Nurses Notes, Medications, Allergies (Allergies to penicillin) Information Source: Patient Mode of Arrival: EMS Severity: Severe Timing: Days Duration: Since onset Context: At Rest PE Risk Factors: None History of: COPD Prehospital treatment: Breathing Tx, Trains Dispatcher Supervisor, IVF, Oxygen Modifying Factors: Nothing Associated Signs and Symptoms: Wheeze, Cough If cough with SOB: Non-Productive Past Medical History PAST MEDICAL HISTORY: COPD Surgical History: Denies all surgeries Family History Family History: Reviewed,noncontributory to illness Social History Smoker: Cigarettes Alcohol: Denies ETOH Use Drugs: Denies Drug Use Lives In: Home Constitutional: denies: chills, diaphoresis, fatigue, fever, malaise, sweats, weakness, others EENTM: denies: blurred vision, double vision, ear bleeding, ear discharge, ear drainage, ear pain, ear ringing, eye pain, eye redness, hearing loss, mouth pain, mouth swelling, nasal discharge, nose bleeding, nose congestion, nose pain, photophobia, tearing, throat pain, throat swelling, voice changes, others Respiratory: reports: shortness of breath, wheezing; denies: cough, hemoptysis, orthopnea, SOB at rest, SOB with excertion, stridor, others Cardiovascular: denies: chest pain, dizzy spells, diaphoresis, Dyspnea on exertion, edema, irregular heart beat, left arm pain, lightheadedness, palpitations, PND, syncope, others Gastrointestinal: denies: abdomen distended, abdominal pain, blood streaked bowels, constipated, diarrhea, dysphagia, difficulty swallowing, hematemesis, melena, nausea, poor appetite, poor fluid intake, rectal bleeding, rectal pain, vomiting, others Genitourinary: denies: burning, dysuria, flank pain, frequency, hematuria, incontinence, penile discharge, penile sore, pain, testicle pain, testicle swelling, urgency, others Neurological: denies: dizziness, fainting, headache, left sided numbness, left sided weakness, numbness, paresthesia, pre-existing deficit, right sided numbness, right sided weakness, seizure, speech problems, tingling, tremors, weakness, others Musculoskeletal: denies: back pain, gout, joint pain, joint swelling, muscle pain, muscle stiffness, neck pain, others Integumetry: denies: bruises, change in color, change in hair/nails, dryness, laceration, lesions, lumps, rash, wounds, others Allergic/Immunocompromised: denies: Difficulty Healing, Frequent Infections, Hives, Itching, others Hematologic/Lymphatic: denies: anemia, blood clots, easy bleeding, easy bruising, swollen glands, others Endocrine: denies: excessive hunger, excessive sweating, excessive thirst, excessive urination, flushing, intolerance to cold, intolerance to heat, unexplained weight gain, unexplained weight loss, others Psychiatric: denies: anxiety, bipolar disorder, depression, hopeless, panic disorder, schizophrenia, sleepless, suicidal, others Physical Exam General Appearance: Moderate Distress HEENT: Normal ENT Inspection, Pharynx Normal, TMs Normal Neck: Full Range of Motion, Non-Tender, Normal, Normal Inspection Respiratory: Chest Non-Tender, Decreased Breath Sounds, No Accessory Muscle Use, Respiratory Distress, Wheezing Cardiovascular: No Edema, No JVD, No Murmur, No Gallop, Tachycardia Breast Exam: Deferred Gastrointestinal: No Organomegaly, Non Tender, No Pulsatile Mass, Normal Bowel Sounds, Soft Genitalia: Deferred Pelvic: Deferred Rectal: Deferred Extremities: No calf tenderness, Normal capillary refill, Normal inspection, Normal range of motion, Non-tender, No pedal edema Musculoskeletal : Apperance: Normal Neurologic: Alert, sports management intern II-XII nml as Tested, No Motor Deficits, Normal Affect, Normal Mood, No Sensory Deficits Cerebellar Function: Normal Reflexes: Normal Skin: Dry, Normal Color, Warm Lymphatic: No Adenopathy EKG EKG : Pulse Rate (adult): 100 [place]: Normal Cardiac Rhythm: ST Block: None ST: Nonsp Was a procedure done? Was a procedure done?: No Differential Dx Differential Diagnosis: Asthma, Bronchitis, CHF, COPD, Pneumonia X-Ray, Labs, Meds, VS Vital Signs Date Time Temp Pulse Resp B/P (MAP) Pulse Ox O2 Delivery O2 Flow Rate FiO2 08/11/24 18:25 100 22 149/96 (113) 97 08/11/24 18:25 100 97 Simple Mask* 8 60 08/11/24 17:21 18 96 Room Air* 0 21 08/11/24 17:10 30 98 Nasal Cannula* 6 44 08/11/24 17:09 100 08/11/24 17:02 97.9 110 30 138/99 (112) 98 08/11/24 17:00 100 Current Medications Medications (Trade) Dose Ordered Sig/Sherine Route Start Time Stop Time Status Last Admin Methylprednisolone Sodium Succinate (Solu Medrol) 125 mg ONCE ONCE IV 08/11/24 17:00 08/11/24 17:01 DC 08/11/24 18:00 Ipratropium [place] (Atrovent Medneb) 1 mg ONCE ONCE HHN 08/11/24 17:00 08/11/24 17:01 DC 08/11/24 17:21 Albuterol (Ventolin Medneb) 20 mg ONCE ONCE HHN 08/11/24 17:00 08/11/24 17:01 DC 08/11/24 17:21 The patient has a chest x-ray done yesterday which shows: IMPRESSION: No acute fracture. Bibasilar Emphysematous lung changes. Lucency in the left upper lung field is similar to the prior exam, likely bullous. If symptoms persist, further evaluation with CT is recommended. We are giving the patient a continuous breathing treatment of albuterol and Atrovent The patient will be given Solu-Medrol 125 mg IV push The patient was improving with a breathing treatment We are going to admit the patient to the hospitalist at this time. The patient understands and agrees with the management. He states that he will stay for admission this time. Images Reviewed?: Images reviewed and evaluated by me Time of 1ST Reevaluation: 17:06 Reevaluation 1ST: Unchanged Patient Education/Counseling: Diagnosis, Treatment, Prognosis Family Education/Counseling: No Family Present Departure 1 Departure Time of Disposition: 17:07 Impression: Primary Impression: COPD exacerbation Additional Impression: Acute respiratory failure Qualified Codes: J96.01 - Acute respiratory failure with hypoxia Disposition: 09 ADMITTED INPATIENT Admit to: Tele Condition: Fair Critical Care Note Critical Care Time?: Yes (45 min-critical care time only) Stability Stability form required: Yes Unstable for transfer: Telemetry monitoring (Telemetry monitoring required), ED Physician Assesment (Clinical assesment) Heart Score Heart Score: Heart Score Response (Comments) Value History N/A 0 EKG N/A 0 Age N/A 0 Risk Factors N/A 0 Troponin N/A 0 Total 0 ANGELICA GARCIA MD Aug 11, 2024 17:09
[2024-08-11] MEDS: ALBUTEROL SULF 2.5 MG/0.5ML(0.5%) NEB SOLN HHN ONE (17:21)
[2024-08-11] MEDS: IPRATROPIUM BROM 0.5 MG/2.5ML INH SOL HHN ONE (17:21)
[2024-08-11] MEDS: methylPREDNISolone SOD SUCC 125 MG/2 ML VL IV ONE (18:00)
[2024-08-11 18:25] VITALS: PULSE 100; O2SAT 97
--- NOTE | 2024-08-11 19:04 | ECG ---
[facility] Test Date: 2024-08-11 Test Time: 16:58:24 Pat Name: ROBERTO PEGUERO Department: ED Room: [address] [place] [address] Gender: M [employer] Attorney: SAIMA : 1965 Requested By: ANGELICA GARCIA Order Number: [id number] Reading MD: Imer Joseph Measurements Intervals [place] Rate: 100 P: 81 IN: 149 QRS: 79 QRSD: 88 T: 55 QT: 379 QTc: 489 Interpretive Statements Sinus tachycardia Borderline prolonged QT interval Electronically Signed On 08-12-2024 9:49:43 PST by Imer Joseph Please click the below link to view image of tracing.
[2024-08-11 19:15] VITALS: O2SAT 96
[2024-08-11 22:01] LABS: Basophils # (auto) 0 10 ^3/uL (0-0.2); Basophils % (auto) 0.3 % (0.0-2.0); Eosinophils # (auto) 0 10 ^3/uL (0-0.8); Eosinophils % (auto) 0.3 % (0.0-7.0); Hematocrit 42.4 % (41.0-53.0); Hemoglobin 14.5 g/dL (13.5-17.5); Lymphocytes # (auto) 0.5 10 ^3/uL (0.4-5.4); Mean Corpuscular Hgb Conc. 34.2 g/dL (32.0-36.0); Mean Corpuscular Volume 87.8 fL (80.0-100.0); Monocytes # (auto) 0.2 10 ^3/uL (0-1.3); Monocytes % (auto) 1.4 % (0.0-12.0); Neutrophils # (auto) 12.1 10 ^3/uL (1.6-8.6); Platelet Count (auto) 408 10^3/uL (140-450); Red Blood Cells 4.83 10^6/uL (4.5-5.90); Red Cell Distribution Width 13.5 % (11.8-14.3); White Blood Cell 12.9 10^3/uL (4.4-10.8)
[2024-08-11 22:21] LABS: Alanine Aminotransferase 20 U/L (7-40); Albumin 4.4 g/dL (3.2-4.8); Alkaline Phosphatase 77 U/L (46-116); Anion Gap 8 (5-15); BUN/Creatinine Ratio 14.2 (10.0-20.0); Blood Urea Nitrogen 18 mg/dL (9-23); Calcium 9.6 mg/dL (8.7-10.4); Carbon Dioxide 29 mmol/L (20-31); Chloride 102 mmol/L (98-107); Potassium 3.6 mmol/L (3.5-5.1); Sodium 139 mmol/L (136-145)
[2024-08-11 22:22] LABS: Bilirubin, Total 0.5 mg/dL (0.2-1.0)
[2024-08-11 22:27] LABS: Aspartate Aminotransferase 9 U/L (13-40); Glucose 152 mg/dL (74-106)
[2024-08-11] MEDS: IOHEXOL 350 MG/ML 100ML IJ ONE (23:01)
--- NOTE | 2024-08-11 23:06 | DVHHPRES ---
History of Present Illness Resident Creating Document: ABHINAV ACKERMAN RESIDENT Reason for Visit: Shortness of breaths History of Present Illness This is a 59-year-old male who comes into the ED with chief complain of shortness of Breath. Patient has a past medical history relevant for COPD, hypertension. Denies any surgeries. He also has a history of being a heavy smoker, occasional alcohol use, meth abuse and cannabis. Patient states that for the last three days he has been experiencing worsening shortness of breath, audible wheezing, chest tightness, dry cough. He was here in the ED recently due to similar symptoms but left AMA. Patient said that he came back because he was having severe shortness of breath, EMS went to his home on it was found to be at 80% saturation. Patient currently denies any chest pain, dizziness, lightheadedness. Denies any abdominal pain, nausea, vomiting, any recent sick contact. In the ED patient received breathing treatments, he was placed on nasal cannula and was later changed to simple mask at 8 L, patient also received Solu-Medrol. A previous chest x-ray demonstrated significant radiolucency on left upper lung, likely a sizable bulla. Cardiovascular: HTN Pulmonary: COPD Smoke: 1 pack per day ALCOHOL: occassional Drugs: Marijuana Lives: Homeless Review of Systems Constitutional: No: Fever, Chills, Sweats, Weakness, Malaise, Other Eyes: No: Pain, Vision change, Conjunctivae inflammation, Eyelid inflammation, Other, Redness ENT: No: Ear pain, Ear discharge, Nose pain, Nose discharge, Nose congestion, Mouth pain, Mouth swelling, Throat pain, Throat swelling, Other Respiratory: Cough, Dry, Shortness of breath, SOB with excertion, Wheezing, Pleuritic Pain; No: Hemoptysis, Sputum, Other Cardiovascular: No: Chest Pain, Palpitations, Orthopnea, Paroxysmal Noc. Dyspnea, Edema, Lt Headedness, Other Gastrointestinal: No: Nausea, Vomiting, Abdominal Pain, Diarrhea, Constipation, Melena, Hematochezia, Other Genitourinary: No Dysuria, No Frequency, No Incontinence, No Hematuria, No Retention, No Other Musculoskeletal: No: other, neck pain, shoulder pain, arm pain, back pain, hand pain, leg pain, foot pain Skin: No: Rash, Lesions, Jaundice, Bruising, Other Neurological: No: Weakness, Numbness, Incoordination, Change in speech, Confusion, Seizures, Other Allergies: Coded Allergies: Penicillins (Verified Allergy, Unknown, 10/11/23) Medications Current Medications Medications Dose Ordered Sig/Sherine Route Start Time Stop Time Status Last Admin Dose Admin Albuterol 2.5 mg Q4HWA [facility] 08/12/24 06:00 Ipratropium [place] 0.5 mg Q4HWA [facility] 08/12/24 06:00 Methylprednisolone Sodium Succinate 40 mg BID IV 08/12/24 10:00 Doxycycline Hyclate 100 ml @ 50 mls/hr Q12H IV 08/11/24 22:45 Exam Vital Signs Vital Signs Date Time Temp Pulse Resp B/P (MAP) Pulse Ox O2 Delivery O2 Flow Rate FiO2 08/11/24 19:17 105 21 138/94 (109) 98 08/11/24 19:15 Simple Mask* 8 60 08/11/24 17:02 97.9 General Appearance: Alert, Oriented X3, Cooperative, mild distress HEENT: Atraumatic, PERRLA, EOMI, Mucous membr. moist/pink Respiratory: Other (Bilateral wheezing, diminished breath sound on left upper lung) Cardiovascular: Regular rate, Normal S1, Normal S2, No murmurs Abdominal: Normal bowel sounds, Soft, No tenderness, No hepatospenomegaly Extremities: No clubbing, No cyanosis, No edema, Normal pulses, No tenderness/swelling Skin: No rashes, No breakdown, No significant lesion Neuro: Normal gait, Normal speech, Strength at 5/5 X4 ext, Normal tone, Sensation intact Psych/Mental Status: Mental status NL, Mood NL Labs/Xrays Labs Test 08/11/24 21:45 Range/Units White Blood Count 12.9 #H 4.4-10.8 10^3/uL Red Blood Count 4.83 4.5-5.90 10^6/uL Hemoglobin 14.5 13.5-17.5 g/dL Hematocrit 42.4 41.0-53.0 % Mean Corpuscular Volume 87.8 80.0-100.0 fL Mean Corpuscular Hemoglobin 30.0 28.0-32.0 pg Mean Corpuscular Hemoglobin Concent 34.2 32.0-36.0 g/dL Red Cell Distribution Width 13.5 11.8-14.3 % Platelet Count 408 140-450 10^3/uL Mean Platelet Volume 6.7 L 6.9-10.8 fL Neutrophils (%) (Auto) 94.0 H 37.0-80.0 % Lymphocytes (%) (Auto) 4.0 L 10.0-50.0 % Monocytes (%) (Auto) 1.4 0.0-12.0 % Eosinophils (%) (Auto) 0.3 0.0-7.0 % Basophils (%) (Auto) 0.3 0.0-2.0 % Neutrophils # (Auto) 12.1 H 1.6-8.6 10 ^3/uL Lymphocytes # (Auto) 0.5 0.4-5.4 10 ^3/uL Monocytes # (Auto) 0.2 0-1.3 10 ^3/uL Eosinophils # (Auto) 0 0-0.8 10 ^3/uL Basophils # (Auto) 0 0-0.2 10 ^3/uL Nucleated Red Blood Cells 0.0 % D-Dimer, Quantitative 0.61 H 0.0-0.49 mg/L FEU Sodium Level 139 136-145 mmol/L Potassium Level 3.6 3.5-5.1 mmol/L Chloride Level 102 98-107 mmol/L Carbon Dioxide Level 29 20-31 mmol/L Anion Gap 8 5-15 Blood Urea Nitrogen 18 9-23 mg/dL Creatinine 1.27 0.700-1.30 mg/dL Glomerular Filtration Rate Calc 65 >90 mL/min BUN/Creatinine Ratio 14.2 10.0-20.0 Serum Glucose 152 H 74-106 mg/dL Calcium Level 9.6 8.7-10.4 mg/dL Total Bilirubin 0.5 0.2-1.0 mg/dL Aspartate Amino Transferase (AST) 9 L 13-40 U/L Alanine Aminotransferase (ALT) 20 7-40 U/L Alkaline Phosphatase 77 46-116 U/L Total Protein 7.0 5.7-8.2 g/dL Albumin 4.4 3.2-4.8 g/dL Assessment/Plan Assessment/Plan #Acute hypoxic respiratory failure likely due to COPD, possible pneumonia Continue simple mask at 8 L, titrate down as tolerated, maintain an oxygen saturation between 88-92% Order CT angio chest #COPD exacerbation #Bullous emphysema Solu-Medrol 40 mg IV b.i.d. RonakoNebs q.4 hours while awake Consult pulmonology Dr. Al Order echocardiogram to classify possible pulmonary hypertension #Leukocytosis, likely reactive due to glucocorticoids Monitor #Possible atypical pneumonia, Gram-positive versus Gram-negative, rule out viral Doxycycline 100 mg IV b.i.d. COVID and flu Order MRSA swab and sputum culture #History of polysubstance abuse #Current heavy smoker Counseled on lifestyle modification UDS #Hypertension, controlled Monitor Cardiac diet #Prediabetes Consistent carb diet SSI mild Prophylactic Lovenox Goals of care were discussed for 30 minutes. Full code Case was discussed with Dr. Puckett Plan discussed with: Patient My Orders Orders - ABHINAV ACKERMAN RESIDENT Procedure Category Date Status Time Covid19 Antigen Talia LAB 08/11/24 Logged Rapid Influenza A&B LAB 08/11/24 Logged 21:34 Admit ADMIT 08/11/24 Transmitted 22:14 Oxygen By Nasal RT 08/11/24 Transmitted Cannula 22:14 Notify Of Changes AROLDO 08/11/24 In Process From Base 22:14 Enamel Cracker For AROLDO 08/11/24 In Process 24 Hours 22:14 Emergency Dysrhythmia AROLDO 08/11/24 In Process Protocol 22:14 Rhythm Strips Once AROLDO 08/11/24 In Process Every Shift 22:[address] 08/11/24 Logged Contrast 22:39 Bilat Lower Dvt US 08/11/24 Logged 22:39 Albuterol Medneb PHA 08/12/24 In Process (Ventolin Medneb) 06:00 Ipratropium Medneb PHA 08/12/24 In Process (Atrovent Medneb) 06:00 Methylprednisolone PHA 08/12/24 In Process Sod Succ (Solu Medrol 10:00 Doxycycline PHA 08/11/24 In Process 100mg/100ml 22:45 Mrsa Screen SAVANNA 08/11/24 Logged 22:39 Respiratory Culture SAVANNA 08/11/24 Logged W/ Gs 22:42 Drug Screen LAB 08/11/24 Logged 22:42 Urinalysis LAB 08/11/24 Logged 22:42 Hemoglobin A1c LAB 08/11/24 In Process 22:42 Echo 2d Mode Cardiac US 08/11/24 Logged DOP 22:46 Date of Service: Aug 12, 2024 Billing Provider: BRYANT PUCKETT MD Common Visit Codes: [id number] INP/OBS CARE (HIGH) ABHINAV ACKERMAN RESIDENT Aug 11, 2024 23:06 BRYANT PUCKETT MD Aug 15, 2024 15:12
[2024-08-11 23:41] LABS: Rapid Influenza A Negative (Negative); Rapid Influenza B Negative (Negative)
[2024-08-11 23:42] LABS: COVID19 ANTIGEN SOFIA FIA NEGATIVE (NEGATIVE)
[2024-08-11 23:56] VITALS: BP 138/94; PULSE 105; RESP 21; O2SAT 98
--- NOTE | 2024-08-12 00:49 | DVH ---
CLINICAL HISTORY: elevated ddimer TECHNIQUE: Color and duplex doppler imaging of the bilateral lower extremity veins was performed. Ves omkar compression if possible was also performed. WID: COMPARISON: None FINDINGS: Right Lower Extremity: Right common femoral vein: Normal compressibility and flow. Right femoral vein: Normal compressibility and flow. Right popliteal vein: Normal compressibility and flow. Proximal calf veins are normally compressible. Left Lower Extremity: Left common femoral vein: Normal compressibility and flow. Left femoral vein: Normal compressibility and flow. Left popliteal vein: Normal compressibility and flow. Proximal calf veins are normally compressible. IMPRESSION: NO SONOGRAPHIC EVIDENCE FOR DEEP VENOUS THROMBOSIS IN THE BILATERAL LOWER EXTREMITY VEINS.
[2024-08-12 01:47] VITALS: PULSE 88; RESP 22; O2SAT 88
[2024-08-12] MEDS: ALBUTEROL SULF 2.5 MG/0.5ML(0.5%) NEB SOLN NEB SCH (01:47)
[2024-08-12] MEDS: IPRATROPIUM BROM 0.5 MG/2.5ML INH SOL NEB SCH (01:47)
[2024-08-12 01:55] VITALS: PULSE 93; RESP 19; O2SAT 97
[2024-08-12] MEDS ORDERED: DEXTROSE (50%) 50ML SYRG IV PRN (02:00)
[2024-08-12] MEDS: ENOXAPARIN SOD 40 MG/0.4 ML SYRINGE SC ONE (02:30)
[2024-08-12 03:34] LABS: Chloride 103 mmol/L (98-107); Potassium 3.9 mmol/L (3.5-5.1); Sodium 140 mmol/L (136-145)
[2024-08-12 03:35] LABS: Anion Gap 9 (5-15); Calcium 9.7 mg/dL (8.7-10.4); Carbon Dioxide 28 mmol/L (20-31)
[2024-08-12 03:40] LABS: BUN/Creatinine Ratio 15.2 (10.0-20.0); Blood Urea Nitrogen 21 mg/dL (9-23); Glucose 225 mg/dL (74-106)
[2024-08-12 03:45] LABS: Basophils # (auto) 0 10 ^3/uL (0-0.2); Basophils % (auto) 0.4 % (0.0-2.0); Eosinophils # (auto) 0 10 ^3/uL (0-0.8); Eosinophils % (auto) 0.1 % (0.0-7.0); Hematocrit 39.4 % (41.0-53.0); Hemoglobin 13.6 g/dL (13.5-17.5); Lymphocytes # (auto) 0.3 10 ^3/uL (0.4-5.4); Lymphocytes % (auto) 4.3 % (10.0-50.0); Mean Corpuscular Hemoglobin 30.3 pg (28.0-32.0); Mean Corpuscular Hgb Conc. 34.4 g/dL (32.0-36.0); Mean Corpuscular Volume 88.1 fL (80.0-100.0); Monocytes # (auto) 0.1 10 ^3/uL (0-1.3); Monocytes % (auto) 1.9 % (0.0-12.0); Neutrophils # (auto) 6.3 10 ^3/uL (1.6-8.6); Neutrophils % (auto) 93.3 % (37.0-80.0); Platelet Count (auto) 433 10^3/uL (140-450); Red Blood Cells 4.47 10^6/uL (4.5-5.90); Red Cell Distribution Width 13.6 % (11.8-14.3); White Blood Cell 6.8 10^3/uL (4.4-10.8)
--- NOTE | 2024-08-12 04:32 | DVH ---
CTA Chest with intravenous contrast INDICATION: elevated ddimer COMPARISON: Chest radiograph performed on 08/10/2024. TECHNIQUE: Multidetector spiral CTA of the chest was performed of the chest with 100 cc of omnipaque 350 intravenous contrast. PULMONARY ANGIOGRAPHY PROTOCOL was utilized using a bolus-tracking techniqu e centered on the main pulmonary artery. Coronal and sagittal multiplanar and MIP reformats were perf ormed. Radiation Dose : 1. Chest: CTDI volume is 17.76 mGy. Dose-length product is 653.98 mGy*cm The dose indicators for CT are the volume Computed Tomography (CT) Dose Index (CTDIvol) and the Dose Length Product (DLP), and are measured in units of mGy and mGy-cm, respectively. These indicators are not patient dose, but values generated from the CT scanner acquisition factors. The report includes radiation exposure data for exposures received during this examination. FINDINGS: Pulmonary artery: No central, lobar or proximal segmental pulmonary embolus. Lower neck: Normal thyroid. Lungs: Severe emphysema. Extensive bullous changes in the left upper lobe. Bibasilar atelectasis. Central airways: Patent. Pleura: No pneumothorax. No pleural effusions. Heart/Vascular Structures: The heart is normal in size. No pericardial effusion. Thoracic aorta is normal in caliber. No aneurysm or dissection. Lymph Nodes: No mediastinal or hilar lymphadenopathy. Esophagus:Grossly unremarkable. Musculoskeletal: Unremarkable. Body wall: Unremarkable. Upper abdomen: Unremarkable. IMPRESSION: 1. No evidence of pulmonary embolism. 2. Severe emphysema. Bilateral lower lobe atelectasis.
[2024-08-12 04:33] LABS: Lactic Acid w/Reflex 2.7 mmol/L (0.4-2.0)
[2024-08-12] MEDS: SODIUM CHLORIDE 0.9% 500 ML IV ONE (05:00)
[2024-08-12 06:51] VITALS: PULSE 109; RESP 20; O2SAT 94
[2024-08-12 06:57] VITALS: PULSE 95; RESP 20; O2SAT 96
[2024-08-12] MEDS: InsuLIN REG 1unit/0.01ml Soln (100units/ml) SC SCH (07:00)
[2024-08-12] MEDS: ACCU-CHEK COMFORT CURVE STRIP VI SCH (07:00)
[2024-08-12 07:30] VITALS: BP 132/84; PULSE 90; RESP 20; TEMP 98; O2SAT 96
[2024-08-12] MEDS ORDERED: cefTRIAXone 1GM/50ML D5W 50 ML IV SCH (09:00)
[2024-08-12] MEDS ORDERED: methylPREDNISolone SOD SUCC 40 MG/ML VL IV SCH (10:00)
--- NOTE | 2024-08-12 10:05 | DVHDSRES ---
Discharge Summary Date of Admission Resident Creating Document: ABHINAV ACKERMAN RESIDENT Aug 11, 2024 at 22:14 Date of Discharge: Aug 12, 2024 Admitting Diagnosis #Acute hypoxic respiratory failure likely due to COPD, possible pneumonia #COPD exacerbation #Bullous emphysema #Leukocytosis, likely reactive due to glucocorticoids #Possible atypical pneumonia, Gram-positive versus Gram-negative, rule out viral #History of polysubstance abuse #Current heavy smoker #Hypertension, controlled #Prediabetes Labs/Diagnostic Data: Laboratory Results Test 08/12/24 06:26 08/12/24 02:50 08/11/24 22:56 08/11/24 21:45 Lactic Acid Level 1.3 mmol/L (0.4-2.0) White Blood Count 6.8 10^3/uL (4.4-10.8) Red Blood Count 4.47 10^6/uL (4.5-5.90) Hemoglobin 13.6 g/dL (13.5-17.5) Hematocrit 39.4 % (41.0-53.0) Mean Corpuscular Volume 88.1 fL (80.0-100.0) Mean Corpuscular Hemoglobin 30.3 pg (28.0-32.0) Mean Corpuscular Hemoglobin Concent 34.4 g/dL (32.0-36.0) Red Cell Distribution Width 13.6 % (11.8-14.3) Platelet Count 433 10^3/uL (140-450) Mean Platelet Volume 6.7 fL (6.9-10.8) Neutrophils (%) (Auto) 93.3 % (37.0-80.0) Lymphocytes (%) (Auto) 4.3 % (10.0-50.0) Monocytes (%) (Auto) 1.9 % (0.0-12.0) Eosinophils (%) (Auto) 0.1 % (0.0-7.0) Basophils (%) (Auto) 0.4 % (0.0-2.0) Neutrophils # (Auto) 6.3 10 ^3/uL (1.6-8.6) Lymphocytes # (Auto) 0.3 10 ^3/uL (0.4-5.4) Monocytes # (Auto) 0.1 10 ^3/uL (0-1.3) Eosinophils # (Auto) 0 10 ^3/uL (0-0.8) Basophils # (Auto) 0 10 ^3/uL (0-0.2) Nucleated Red Blood Cells 0.0 % Sodium Level 140 mmol/L (136-145) Potassium Level 3.9 mmol/L (3.5-5.1) Chloride Level 103 mmol/L (98-107) Carbon Dioxide Level 28 mmol/L (20-31) Anion Gap 9 (5-15) Blood Urea Nitrogen 21 mg/dL (9-23) Creatinine 1.38 mg/dL (0.700-1.30) Glomerular Filtration Rate Calc 59 mL/min (>90) BUN/Creatinine Ratio 15.2 (10.0-20.0) Serum Glucose 225 mg/dL (74-106) Calcium Level 9.7 mg/dL (8.7-10.4) Influenza Type A Antigen Negative (Negative) Influenza Type B Antigen Negative (Negative) SARS-CoV-2 Antigen (Rapid) Negative (NEGATIVE) D-Dimer, Quantitative 0.61 mg/L FEU (0.0-0.49) Hemoglobin A1c 6.2 % A1C (<5.7) Total Bilirubin 0.5 mg/dL (0.2-1.0) Aspartate Amino Transferase (AST) 9 U/L (13-40) Alanine Aminotransferase (ALT) 20 U/L (7-40) Alkaline Phosphatase 77 U/L (46-116) Troponin I High Sensitivity 6 ng/L (</=54) Total Protein 7.0 g/dL (5.7-8.2) Albumin 4.4 g/dL (3.2-4.8) Other Laboratory Tests 08/12/24 02:50 Brief Hx & Hospital Course: HPI This is a 59-year-old male who comes into the ED with chief complain of shortness of Breath. Patient has a past medical history relevant for COPD, hypertension. Denies any surgeries. He also has a history of being a heavy smoker, occasional alcohol use, meth abuse and cannabis. Patient states that for the last three days he has been experiencing worsening shortness of breath, audible wheezing, chest tightness, dry cough. He was here in the ED recently due to similar symptoms but left AMA. Patient said that he came back because he was having severe shortness of breath, EMS went to his home on it was found to be at 80% saturation. Patient currently denies any chest pain, dizziness, lightheadedness. Denies any abdominal pain, nausea, vomiting, any recent sick contact. In the ED patient received breathing treatments, he was placed on nasal cannula and was later changed to simple mask at 8 L, patient also received Solu-Medrol. A previous chest x-ray demonstrated significant radiolucency on left upper lung, likely a sizable bulla. Hospital course Patient came to the hospital with worsening shortness of breath and was put on Oxygen via simple mask and was given IV steroid along with antibiotics and nebuliser breathing treatments for likely copd exacerbation. Patient was explained that he needs further inpatient care as he was on 6L O2 via nasal cannula. CT angio chest showed Severe emphysema. Extensive bullous changes in the left upper lobe. Bibasilar atelectasis.He was explained about the need for a pulmonology consultation. Patient denied all further treatments and understood the risks of denying the treatment. Patient left AMA Operations or Procedures CT angio chest FINDINGS: Pulmonary artery: No central, lobar or proximal segmental pulmonary embolus. Lower neck: Normal thyroid. Lungs: Severe emphysema. Extensive bullous changes in the left upper lobe. Bibasilar atelectasis. Central airways: Patent. Pleura: No pneumothorax. No pleural effusions. Heart/Vascular Structures: The heart is normal in size. No pericardial effusion. Thoracic aorta is normal in caliber. No aneurysm or dissection. Lymph Nodes: No mediastinal or hilar lymphadenopathy. Esophagus:Grossly unremarkable. Musculoskeletal: Unremarkable. Body wall: Unremarkable. Upper abdomen: Unremarkable. IMPRESSION: 1. No evidence of pulmonary embolism. 2. Severe emphysema. Bilateral lower lobe atelectasis. Condition at Discharge: Unstable Final Diagnosis/Problems List #Acute hypoxic respiratory failure likely due to COPD exacerbation #COPD exacerbation #Bullous emphysema #Leukocytosis, likely reactive due to glucocorticoids #Possible atypical pneumonia, Gram-positive versus Gram-negative, rule out viral #History of polysubstance abuse #Current heavy smoker #Hypertension, controlled #Prediabetes Discharge Disposition: AMA Discharge Statement: "Patient was advised to return to the ER or call 911 if any headaches, dizziness, shortness of breath, chest pain, abdominal pain, bleeding, fevers, or worsening of medical condition. Patient was counseled about treatment plan, medications, possible side effects, patientverbalized understanding. All questions were answered to the best of my ability. This discharge took greater then 30 minutes in planning, reviewing documentation, counseling the patient, and discussing with other team members." ASSESSMENT ASSESSMENT Assessment Date of Service: Aug 12, 2024 Billing Provider: BRYANT MORA MD Common Visit Codes: 16066-EQD/OBS DISCH DAY >30min MATHEW SAUNDERS RESIDENT Aug 12, 2024 10:05 BRYANT MORA MD Aug 15, 2024 15:13
--- NOTE | 2024-08-12 19:50 | DVHINCON2 ---
Date of service: Aug 12, 2024 Referring Physician Corinne Sandoval MD Reason for Consultation Acute hypoxic respiratory failure, COPD exacerbation, pneumonia History of Present Illness A 59-year-old man with past medical history of COPD, hypertension, heavy smoker, hx of meth and cannabis abuse, who presented to ED on 08/11/24 with chief complaint of shortness of breath. Patient c/o worsening shortness of breath, audible wheezing, chest tightness, dry cough for 3 days prior to presentation. He was here in the ED recently due to similar symptoms but left AMA. Patient was noted to have O2 sat of 80% at home by EMS. In the ED patient received breathing treatments, was placed on nasal cannula and later changed to simple mask at 8 L, also received Solu-Medrol. A previous chest x-ray demonstrated significant radiolucency on left upper lung, likely a sizable bulla. Patient was thus admitted for further care and pulmonary consultation is requested for evaluation and management d/t the above findings. Review of Systems: 14-point review of systems negative unless otherwise noted above. Past Medical History: COPD, hypertension, heavy smoking, hx of meth and cannabis abuse Past Surgical History: Denies Medications: Reviewed. Allergies: Penicillins. Family History: No family history of premature CAD. No family history of lung disorders. Social History: Current smoker. Smokin pack per day Alcohol: occasional Drugs: Marijuana, methamphetamine Allergies: Coded Allergies: Penicillins (Verified Allergy, Unknown, 10/11/23) Home Meds Active Scripts Promethazine-Dm (Promethazine Dm 6.25-15 mg/5Ml) 1 Melany Melany, 5 ML PO TID, #180 ML Prov:RAHEEM PEARSON 10/11/23 Azithromycin (Azithromycin) 500 Mg Tab, 1 TAB PO DAILY, #5 TAB Prov:RAHEEM PEARSON 10/11/23 Levofloxacin Hemihydrate (LEVAQUIN 500 MG) 500 Mg Tab, 1 TAB PO DAILY, #10 TAB Prov:RAHEEM PEARSON 10/11/23 Current Medications Current Medications Medications (Trade) Dose Ordered Sig/Sherine Route PRN Reason Start Time Stop Time Status Last Admin Albuterol (Ventolin Medneb) 2.5 mg Q4HWA NEB 08/12/24 06:00 08/12/24 06:50 Ipratropium [place] (Atrovent Medneb) 0.5 mg Q4HWA NEB 08/12/24 06:00 08/12/24 06:51 Methylprednisolone Sodium Succinate (Solu Medrol) 40 mg BID IV 08/12/24 10:00 Doxycycline Hyclate 100 ml @ 50 mls/hr Q12H IV 08/11/24 22:45 08/11/24 00:15 Diagnostic Test (Pha) (Accu-Chek Comfort Curve T) 1 strip ACHS 08/12/24 07:00 08/12/24 07:00 Insulin Human Regular (InsuLIN R) ACHS SC 08/12/24 07:00 Dextrose 50 ml UD PRN IV Blood Sugar LESS THAN 60 08/12/24 02:00 Enoxaparin Sodium (Lovenox) 40 mg DAILY SC 08/13/24 10:00 Ceftriaxone Sodium 50 ml @ 100 mls/hr DAILY@09 IV 08/12/24 09:00 Hold Vital Signs Vital Signs Date Time Temp Pulse Resp B/P (MAP) Pulse Ox O2 Delivery O2 Flow Rate FiO2 08/12/24 07:30 98.0 90 20 132/84 (100) 96 98.0 08/12/24 07:30 Nasal Cannula* 6 44 Physical Exam Gen.: Patient lying in bed in no apparent distress. On supplemental oxygen. Head: Normocephalic, atraumatic. Eyes: EOMI/PERRLA. Ears: Normal hearing. Normal anatomy. Neck/trachea: Trachea midline, supple. Nose: Normal external anatomy. Mouth: Moist mucous membranes. Chest: Decreased air entry bilaterally. No wheezing or rhonchi. Cardiovascular: Positive S1, positive S2. Regular rate and rhythm. Abdomen: Positive bowel sounds in all 4 quadrants. Soft, non-tender, non- distended. : Deferred. Rectal: Deferred. Skin: Warm, dry. Intact. Extremities: 2+ radial pulses bilaterally. No lower extremity edema. Neuro: Awake, alert, oriented x3. No gross motor or sensory deficits. Cranial nerves II through XII intact. Gait not assessed. Labs/Diagnostic Data Labs Test 08/12/24 06:26 08/12/24 02:50 08/11/24 22:56 08/11/24 21:45 Range/Units Lactic Acid Level 1.3 0.4-2.0 mmol/L White Blood Count 6.8 # 4.4-10.8 10^3/uL Red Blood Count 4.47 L 4.5-5.90 10^6/uL Hemoglobin 13.6 13.5-17.5 g/dL Hematocrit 39.4 L 41.0-53.0 % Mean Corpuscular Volume 88.1 80.0-100.0 fL Mean Corpuscular Hemoglobin 30.3 28.0-32.0 pg Mean Corpuscular Hemoglobin Concent 34.4 32.0-36.0 g/dL Red Cell Distribution Width 13.6 11.8-14.3 % Platelet Count 433 140-450 10^3/uL Mean Platelet Volume 6.7 L 6.9-10.8 fL Neutrophils (%) (Auto) 93.3 H 37.0-80.0 % Lymphocytes (%) (Auto) 4.3 L 10.0-50.0 % Monocytes (%) (Auto) 1.9 0.0-12.0 % Eosinophils (%) (Auto) 0.1 0.0-7.0 % Basophils (%) (Auto) 0.4 0.0-2.0 % Neutrophils # (Auto) 6.3 1.6-8.6 10 ^3/uL Lymphocytes # (Auto) 0.3 L 0.4-5.4 10 ^3/uL Monocytes # (Auto) 0.1 0-1.3 10 ^3/uL Eosinophils # (Auto) 0 0-0.8 10 ^3/uL Basophils # (Auto) 0 0-0.2 10 ^3/uL Nucleated Red Blood Cells 0.0 % Sodium Level 140 136-145 mmol/L Potassium Level 3.9 3.5-5.1 mmol/L Chloride Level 103 98-107 mmol/L Carbon Dioxide Level 28 20-31 mmol/L Anion Gap 9 5-15 Blood Urea Nitrogen 21 9-23 mg/dL Creatinine 1.38 H 0.700-1.30 mg/dL Glomerular Filtration Rate Calc 59 >90 mL/min BUN/Creatinine Ratio 15.2 10.0-20.0 Serum Glucose 225 H 74-106 mg/dL Calcium Level 9.7 8.7-10.4 mg/dL Influenza Type A Antigen Negative Negative Influenza Type B Antigen Negative Negative SARS-CoV-2 Antigen (Rapid) Negative NEGATIVE D-Dimer, Quantitative 0.61 H 0.0-0.49 mg/L FEU Hemoglobin A1c 6.2 H <5.7 % A1C Total Bilirubin 0.5 0.2-1.0 mg/dL Aspartate Amino Transferase (AST) 9 L 13-40 U/L Alanine Aminotransferase (ALT) 20 7-40 U/L Alkaline Phosphatase 77 46-116 U/L Troponin I High Sensitivity 6 </=54 ng/L Total Protein 7.0 5.7-8.2 g/dL Albumin 4.4 3.2-4.8 g/dL Microbiology Date/Time Source Procedure Growth Status 08/11/24 22:56 Nose MRSA Screen - Final Methicillin Resistant S.aureus Complete Assessment Impression: Acute hypoxic respiratory failure Dependence on supplemental oxygen COPD exacerbation Bullous emphysema Pneumonia Leukocytosis Nicotine dependence Polysubstance abuse - marijuana, methamphetamine Plan: Supplemental oxygen Titrate to keep O2 sats above 92%. CT angio reviewed; No evidence of pulmonary embolism. Severe emphysema. Bilateral lower lobe atelectasis. Venous Doppler of bilateral lower extremities reveals no e/o DVT. Obtain echocardiogram Continue bronchodilators Start antibiotics Follow up cultures Monitor white count Check UDS Smoking cessation discussed for greater than 10 minutes Counseled against substance abuse. Monitor renal function. Monitor electrolytes. Supplement as necessary. Monitor ins and outs. DVT prophylaxis. Prognosis: Poor given patient's multiple co-morbidities. Rest of plan per hospitalist and other consultants. Thank you Dr. Sandoval, for allowing me to participate in this patient's care. Further recommendations will depend on the patient's clinical course. Please do not hesitate to contact me if you have any questions or concerns. This medical document was created using an electronic medical record system with [employer] dictation system. Although these documentations are being carefully reviewed, there may still be some phonetic and typographical changes. The errors are purely typographical, due to imperfection on the software program, and do not reflect any compromise in the patient's medical care Plan discussed with: Patient, Other (RN/Dr. Sandoval) ETHAN LOONEY MD Aug 12, 2024 19:50
[2024-08-13] MEDS ORDERED: ENOXAPARIN SOD 40 MG/0.4 ML SYRINGE SC SCH (10:00)
== END 2024-08-12 08:41 | disposition left against medical advice (07) | DRG 137 ==
LOC: EDBD 16:51 → ER 16:51 → TELE 22:14
PROVIDERS: ADMIT Student in an Organized Health Care Education/Training Program; ATTEND Emergency Medicine
DX: J15.69 Pneumonia due to other Gram-negative bacteria (principal); J96.01 Acute respiratory failure with hypoxia; Z99.81 Dependence on supplemental oxygen; J15.9 Unspecified bacterial pneumonia; J44.1 Chronic obstructive pulmonary disease with (acute) exacerbation; J44.0 Chronic obstructive pulmonary disease with (acute) lower respiratory infection; D72.829 Elevated white blood cell count, unspecified; F12.10 Cannabis abuse, uncomplicated; Z20.822 Contact with and (suspected) exposure to COVID-19; F17.210 Nicotine dependence, cigarettes, uncomplicated; I10 Essential (primary) hypertension; R73.03 Prediabetes; J43.9 Emphysema, unspecified; F15.10 Other stimulant abuse, uncomplicated; Z53.29 Procedure and treatment not carried out because of patient's decision for other reasons; Z88.0 Allergy status to penicillin; Z59.00 Homelessness unspecified; Z71.51 Drug abuse counseling and surveillance of drug abuser
CPT/HCPCS: 36415; 36600; 71275; 80048; 80053; 82805; 83036; 83605; 84484; 85025; 85379; 87040; 87081; 87426; 87804; 93005; 93970; 94640; 99291; G0378; J1815

== ENCOUNTER 2024-08-12 16:36 | Inpatient (IN) | payer MEDICAID ==
[~2024-08-12] VITALS: Ht 175.3 cm; Wt 67.5 kg
[2024-08-12] MEDS: IPRATROPIUM BROM 0.5 MG/2.5ML INH SOL NEB ONE (16:48)
[2024-08-12] MEDS: ALBUTEROL SULF 2.5 MG/0.5ML(0.5%) NEB SOLN NEB ONE (16:48)
--- NOTE | 2024-08-12 17:04 | ED.PDOC ---
History of Present Illness HPI Comments 59-year-old male brought to the ER because he was having shortness a breath chest pain which started few hours ago. Patient was admitted in this hospital yesterday left this morning against medical advice. He was still outside the ER in the smoking area when he started to have shortness a breath. He has a history of COPD. Denies nausea vomiting headache dizziness sweating. Denies any other symptoms. Time Seen by MD: 16:37 Primary Care Provider: NONE Reviewed Notes: Nurses Notes, Medications, Allergies Allergies: Coded Allergies: Penicillins (Verified Allergy, Unknown, 10/11/23) Home Meds Active Scripts Promethazine-Dm (Promethazine Dm 6.25-15 mg/5Ml) 1 Melany Melany, 5 ML PO TID, #180 ML Prov:RAHEEM PEARSON 10/11/23 Azithromycin (Azithromycin) 500 Mg Tab, 1 TAB PO DAILY, #5 TAB Prov:RAHEEM PEARSON 10/11/23 Levofloxacin Hemihydrate (LEVAQUIN 500 MG) 500 Mg Tab, 1 TAB PO DAILY, #10 TAB Prov:RAHEEM PEARSON 10/11/23 Information Source: Patient Mode of Arrival: Wheelchair Severity: Moderate Timing: Hours Duration: Since onset Past Medical History PAST MEDICAL HISTORY: COPD Surgical History: Denies all surgeries Family History Family History: Reviewed,noncontributory to illness Social History Smoker: Cigarettes Alcohol: Denies ETOH Use Drugs: Denies Drug Use Lives In: Home Constitutional: denies: chills, diaphoresis, fatigue, fever, malaise, sweats, weakness, others EENTM: denies: blurred vision, double vision, ear bleeding, ear discharge, ear drainage, ear pain, ear ringing, eye pain, eye redness, hearing loss, mouth pain, mouth swelling, nasal discharge, nose bleeding, nose congestion, nose pain, photophobia, tearing, throat pain, throat swelling, voice changes, others Respiratory: reports: shortness of breath; denies: cough, hemoptysis, orthopnea, SOB at rest, SOB with excertion, stridor, wheezing, others Cardiovascular: reports: chest pain; denies: dizzy spells, diaphoresis, Dyspnea on exertion, edema, irregular heart beat, left arm pain, lightheadedness, palpitations, PND, syncope, others Gastrointestinal: denies: abdomen distended, abdominal pain, blood streaked bowels, constipated, diarrhea, dysphagia, difficulty swallowing, hematemesis, melena, nausea, poor appetite, poor fluid intake, rectal bleeding, rectal pain, vomiting, others Genitourinary: denies: burning, dysuria, flank pain, frequency, hematuria, inc ontinence, penile discharge, penile sore, pain, testicle pain, testicle swelling, urgency, others Neurological: denies: dizziness, fainting, headache, left sided numbness, left sided weakness, numbness, paresthesia, pre-existing deficit, right sided numbness, right sided weakness, seizure, speech problems, tingling, tremors, weakness, others Musculoskeletal: denies: back pain, gout, joint pain, joint swelling, muscle pain, muscle stiffness, neck pain, others Integumetry: denies: bruises, change in color, change in hair/nails, dryness, laceration, lesions, lumps, rash, wounds, others Allergic/Immunocompromised: denies: Difficulty Healing, Frequent Infections, Hives, Itching, others Hematologic/Lymphatic: denies: anemia, blood clots, easy bleeding, easy bruising, swollen glands, others Endocrine: denies: excessive hunger, excessive sweating, excessive thirst, excessive urination, flushing, intolerance to cold, intolerance to heat, unexplained weight gain, unexplained weight loss, others Psychiatric: denies: anxiety, bipolar disorder, depression, hopeless, panic disorder, schizophrenia, sleepless, suicidal, others Physical Exam General Appearance: Moderate Distress HEENT: Normal ENT Inspection, Pharynx Normal, TMs Normal Neck: Full Range of Motion, Non-Tender, Normal, Normal Inspection Respiratory: Accessory Muscle Use, Respiratory Distress, Wheezing Cardiovascular: No Edema, No JVD, No Murmur, No Gallop, Normal Peripheral Pulses, Regular Rate/Rhythm Breast Exam: Deferred Gastrointestinal: No Organomegaly, Non Tender, No Pulsatile Mass, Normal Bowel Sounds, Soft Genitalia: Deferred Pelvic: Deferred Rectal: Deferred Extremities: No calf tenderness, Normal capillary refill, Normal inspection, Normal range of motion, Non-tender, No pedal edema Musculoskeletal : Apperance: Normal Neurologic: Alert, No Motor Deficits, No Sensory Deficits Cerebellar Function: NOT DONE Reflexes: NOT DONE Skin: Dry, Normal Color, Warm Peripheral Pulses: 3+ Radial (R), 3+ Radial (L) Lymphatic: No Adenopathy Was a procedure done? Was a procedure done?: No Differential Dx Considerations may include: COPD exacerbation Electrolyte imbalance X-Ray, Labs, Meds, VS Vital Signs Date Time Temp Pulse Resp B/P (MAP) Pulse Ox O2 Delivery O2 Flow Rate FiO2 08/12/24 16:49 24 92 Nasal Cannula* 3 32 Current Medications Medications (Trade) Dose Ordered Sig/Sherine Route Start Time Stop Time Status Last Admin Albuterol (Ventolin Medneb) 5 mg ONCE ONCE NEB 08/12/24 16:45 08/12/24 16:46 DC 08/12/24 16:48 Ipratropium [place] (Atrovent Medneb) 0.5 mg ONCE ONCE NEB 08/12/24 16:45 08/12/24 16:46 DC 08/12/24 16:48 Patient alert. Complaining Placed on oxygen. Answering questions. He was given breathing treatment. Started steroid. Reviewed his previous visit. Continues to smoke cigarettes. Counseled patient on effects of smoking cigarettes for 15 minutes. Explained to the patient. Continue cardiac monitoring. Time of 1ST Reevaluation: 17:02 Reevaluation 1ST: Unchanged Patient Education/Counseling: Diagnosis, Treatment, Prognosis, Need For Follow Up Family Education/Counseling: No Family Present Departure 1 Departure Time of Disposition: 17:03 Impression: Primary Impression: Acute respiratory failure Qualified Codes: J96.01 - Acute respiratory failure with hypoxia Additional Impressions: COPD exacerbation Pneumonitis Disposition: ADMITTED INPATIENT Admit to: Med Surg Condition: Guarded Critical Care Note Critical Care Time?: Yes (90 min-critical care time only) Stability Stability form required: No Heart Score Heart Score: Heart Score Response (Comments) Value History Slightly Suspicious 0 EKG Normal 0 Age 45-64 1 Risk Factors >3 or Hx ASHD 2 Troponin Normal limit 0 Total 3 LIAM LONGORIA MD Aug 12, 2024 17:04
--- NOTE | 2024-08-12 17:19 | DVH ---
EXAM: XR Chest, 1 View CLINICAL INDICATION: sob TECHNIQUE: Frontal view of the chest. COMPARISON: XY CHEST PORTABLE on DOS: 08/10/24, XY CHEST PORTABLE on DOS: 10/11/23 FINDINGS: LUNGS AND PLEURAL SPACES: Lung emphysema with bibasilar atelectasis or scarring. Bleb in the left u pper lung field. No pneumothorax. HEART: Unremarkable. No cardiomegaly. MEDIASTINUM: Unremarkable. Normal mediastinal contour. BONES/JOINTS: Unremarkable. No acute fracture. OTHER FINDINGS: . . . .. IMPRESSION: Lung emphysema with bibasilar atelectasis or scarring. Bleb in the left upper lung field.
[2024-08-12 18:16] LABS: Basophils # (auto) 0.1 10 ^3/uL (0-0.2); Basophils % (auto) 0.5 % (0.0-2.0); Neutrophils % (auto) 84.3 % (37.0-80.0)
[2024-08-12 18:21] LABS: Eosinophils # (auto) 0.1 10 ^3/uL (0-0.8); Eosinophils % (auto) 0.3 % (0.0-7.0); Hematocrit 41.3 % (41.0-53.0); Hemoglobin 13.8 g/dL (13.5-17.5); Lymphocytes # (auto) 1.3 10 ^3/uL (0.4-5.4); Lymphocytes % (auto) 6.8 % (10.0-50.0); Mean Corpuscular Hemoglobin 29.4 pg (28.0-32.0); Mean Corpuscular Hgb Conc. 33.5 g/dL (32.0-36.0); Mean Corpuscular Volume 87.8 fL (80.0-100.0); Monocytes # (auto) 1.5 10 ^3/uL (0-1.3); Monocytes % (auto) 8.1 % (0.0-12.0); Nucleated Red Blood Cells % 0.2 %; Platelet Count (auto) 445 10^3/uL (140-450); Red Cell Distribution Width 13.3 % (11.8-14.3)
[2024-08-12] MEDS: methylPREDNISolone SOD SUCC 125 MG/2 ML VL IV ONE (18:39)
[2024-08-12] MEDS: MAGNESIUM SULFATE 1GM/100ML 100 ML IV ONE (18:44)
[2024-08-12 18:45] LABS: Chloride 106 mmol/L (98-107); Potassium 3.8 mmol/L (3.5-5.1); Sodium 141 mmol/L (136-145)
[2024-08-12] MEDS: AZITHROMYCIN 500MG/ 250ML 250 ML IV ONE (18:45)
[2024-08-12 18:46] LABS: Anion Gap 9 (5-15); Carbon Dioxide 26 mmol/L (20-31)
[2024-08-12 18:47] LABS: Calcium 9.9 mg/dL (8.7-10.4)
[2024-08-12 18:51] LABS: BUN/Creatinine Ratio 19.7 (10.0-20.0); Blood Urea Nitrogen 23 mg/dL (9-23)
[2024-08-12 18:53] LABS: Glucose 117 mg/dL (74-106)
--- NOTE | 2024-08-13 04:55 | DVHHP2 ---
History of Present Illness Reason for Visit: COPD with acute exacerbation History of Present Illness The patient is a 59-year-old male with past medical history of COPD who presented to [facility] ED with complaint of shortness of breaths. Patient reports symptoms progressively get worse with chest pain, admitted in this hospital yesterday left AMA. Patient was seen and evaluated in the ED, laboratory data shows WBC 19.0, platelets 445, sodium 141, potassium 3.8, BUN 23, creatinine 1.17, GFR 72, glucose 117, troponin 15, blood pressure 169/69, heart rate 100, temperature 98.8 F, O2 saturation 97% on oxygen. Chest x-ray revealing lung emphysema with bibasilar atelectasis or scarring, bleb in the left upper lungs field. Patient was started on breathing treatment, please see medication orders section in the computer. On my assessment, patient denied chest pain, no headache, no dizziness, currently on oxygen, no nausea, no vomiting, no fever, no chills. Patient was admitted for further evaluation and medical management. Past Medical History COPD Past Surgical History Denies all surgeries Family History Reviewed, noncontributory to the management of this case. Past Social History The patient lives at home, smokes cigarettes, denies alcohol or illicit drugs abuse. Review of Systems Constitutional: Yes: Weakness; No: Fever, Chills, Sweats, Malaise, Other Eyes: No: Pain, Vision change, Conjunctivae inflammation, Eyelid inflammation, Other, Redness ENT: No: Ear pain, Ear discharge, Nose pain, Nose discharge, Nose congestion, Mouth pain, Mouth swelling, Throat pain, Throat swelling, Other Respiratory: Shortness of breath; No: Cough, Dry, SOB with excertion, Wheezing, Hemoptysis, Pleuritic Pain, Sputum, Wheezing, Other Cardiovascular: Chest Pain; No: Palpitations, Orthopnea, Paroxysmal Noc. Dyspnea, Edema, Lt Headedness, Other Gastrointestinal: No: Nausea, Vomiting, Abdominal Pain, Diarrhea, Constipation, Melena, Hematochezia, Other Genitourinary: No Dysuria, No Frequency, No Incontinence, No Hematuria, No Retention, No Other Musculoskeletal: No: other, neck pain, shoulder pain, arm pain, back pain, hand pain, leg pain, foot pain Skin: No: Rash, Lesions, Jaundice, Bruising, Other Neurological: No: Weakness, Numbness, Incoordination, Change in speech, C onfusion, Seizures, Other Allergies: Coded Allergies: Penicillins (Verified Allergy, Unknown, 10/11/23) Exam Vital Signs Vital Signs Date Time Temp Pulse Resp B/P (MAP) Pulse Ox O2 Delivery O2 Flow Rate FiO2 08/12/24 19:30 98.8 100 16 169/89 (115) 97 98.8 08/12/24 17:39 Nasal Cannula* 3 32 General Appearance: Alert, Oriented X3, Cooperative, No acute distress HEENT: Atraumatic, PERRLA, EOMI, Mucous membr. moist/pink Respiratory: Normal air movement, Other (Diminished breath sounds) Cardiovascular: Regular rate, Normal S1, Normal S2, No murmurs Abdominal: Normal bowel sounds, Soft, No tenderness, No hepatospenomegaly, No masses Extremities: No clubbing, No cyanosis, No edema, Normal pulses, No tenderness/swelling Skin: No rashes, No breakdown, No significant lesion Neuro: Normal speech, Normal tone, Sensation intact, Cranial nerves 3-12 NL, Reflexes 2+, Other (Generalized weakness) Psych/Mental Status: Mental status NL, Mood NL Labs/Xrays Labs Test 08/12/24 17:43 Range/Units White Blood Count 19.0 #H 4.4-10.8 10^3/uL Red Blood Count 4.70 4.5-5.90 10^6/uL Hemoglobin 13.8 13.5-17.5 g/dL Hematocrit 41.3 41.0-53.0 % Mean Corpuscular Volume 87.8 80.0-100.0 fL Mean Corpuscular Hemoglobin 29.4 28.0-32.0 pg Mean Corpuscular Hemoglobin Concent 33.5 32.0-36.0 g/dL Red Cell Distribution Width 13.3 11.8-14.3 % Platelet Count 445 140-450 10^3/uL Mean Platelet Volume 6.8 L 6.9-10.8 fL Neutrophils (%) (Auto) 84.3 H 37.0-80.0 % Lymphocytes (%) (Auto) 6.8 L 10.0-50.0 % Monocytes (%) (Auto) 8.1 0.0-12.0 % Eosinophils (%) (Auto) 0.3 0.0-7.0 % Basophils (%) (Auto) 0.5 0.0-2.0 % Neutrophils # (Auto) 16.0 H 1.6-8.6 10 ^3/uL Lymphocytes # (Auto) 1.3 0.4-5.4 10 ^3/uL Monocytes # (Auto) 1.5 H 0-1.3 10 ^3/uL Eosinophils # (Auto) 0.1 0-0.8 10 ^3/uL Basophils # (Auto) 0.1 0-0.2 10 ^3/uL Nucleated Red Blood Cells 0.2 % Sodium Level 141 136-145 mmol/L Potassium Level 3.8 3.5-5.1 mmol/L Chloride Level 106 98-107 mmol/L Carbon Dioxide Level 26 20-31 mmol/L Anion Gap 9 5-15 Blood Urea Nitrogen 23 9-23 mg/dL Creatinine 1.17 0.700-1.30 mg/dL Glomerular Filtration Rate Calc 72 >90 mL/min BUN/Creatinine Ratio 19.7 10.0-20.0 Serum Glucose 117 #H 74-106 mg/dL Calcium Level 9.9 8.7-10.4 mg/dL Troponin I High Sensitivity 15 </=54 ng/L PATIENT: ROBERTO PEGUEROCCT: [id number] UNIT: [id number] : 1965 LOC: ER ROOM / BED: / AGE / SEX: 59 / M ADM STATUS: REG ER SERVICE [id number] ORDERING PHYSICIAN: LIAM LONGORIA MD PROCEDURE(s): CXRP - CHEST PORTABLE REASON: sob ORDER NUMBER(s): [id number], ACCESSION NUMBER(s): [id number] EXAM: XR Chest, 1 View CLINICAL INDICATION: sob TECHNIQUE: Frontal view of the chest. COMPARISON: XY CHEST PORTABLE on DOS: 08/10/24, XY CHEST PORTABLE on DOS: 10/11/23 FINDINGS: LUNGS AND PLEURAL SPACES: Lung emphysema with bibasilar atelectasis or scarring. Bleb in the left upper lung field. No pneumothorax. HEART: Unremarkable. No cardiomegaly. MEDIASTINUM: Unremarkable. Normal mediastinal contour. BONES/JOINTS: Unremarkable. No acute fracture. OTHER FINDINGS: IMPRESSION: Lung emphysema with bibasilar atelectasis or scarring. Bleb in the left upper lung field. Assessment/Plan Assessment/Plan Acute respiratory failure Hypertensive urgency Acute respiratory failure with hypoxia COPD with acute exacerbation Plan 1. Admit to telemetry unit 2. Breathing treatment 3. Pain control management 4. IV antibiotic management 5. Management of fluids and electrolytes 6. Consultation for hospitalist 7. Diagnostic test chest x-ray 8. DVT prophylaxis-on SCDs 9. Repeat labs CBC, CMP in a.m. 10. Home medication reviewed and reconciled 11. Continue with current medical management 12. Treatment plan discussed with patient and RN. Patient verbalized understanding. Plan discussed with: Patient, Other (RN) My Orders Orders - DELPHINE SHIPLEY DNP Procedure Category Date Status Time Complete Blood Count LAB 08/13/24 Verified 04:51 Comprehensive LAB 08/13/24 Verified Metabolic Panel 04:51 Albuterol Medneb PHA 08/13/24 Verified (Ventolin Medneb) 05:00 Ipratropium Medneb PHA 08/13/24 Verified (Atrovent Medneb) 05:00 Methylprednisolone PHA 08/13/24 Verified Sod Succ (Solu Medrol 06:00 Famotidine Injection PHA 08/13/24 Verified (Pepcid Injection) 10:00 Azithromycin 500mg/ PHA 08/13/24 Verified 250ml (Zithromax 50 10:00 Admit ADMIT 08/13/24 Verified 04:51 Allergies AROLDO 08/13/24 Verified 04:51 Code Status CODE 08/13/24 Verified 04:51 Sodium Chloride Lock PHA 08/13/24 Verified (Saline Lock Ns) 06:00 Oxygen Per Hour RT 08/13/24 Verified 04:51 Hydrocodone-Acet PHA 08/13/24 Verified 5/325mg Tab (Cross 05:00 Ondansetron Hcl PHA 08/13/24 Verified (Zofran) 05:00 Docusate Sodium PHA 08/13/24 Verified Capsule (Colace 05:00 Complete Blood Count LAB 08/14/24 Verified 04:00 Comprehensive LAB 08/14/24 Verified Metabolic Panel 04:00 Cardiac DIET 08/13/24 Verified Diet-2gna,Lofat,Lochol Breakfast Condition: Serious AROLDO 08/13/24 Verified 04:51 Acetaminophen Tablet PHA 08/13/24 Verified (Tylenol Tablet) 05:00 Bedrest With Bathroom AROLDO 08/13/24 Verified Privileg 04:51 Sequential AROLDO 08/13/24 Verified Compression Device Nitroglycerin [facility] 08/13/24 Verified Sublingual (Ntrostat 05:00 Morphine Sulfate [facility] 08/13/24 Verified Injection 05:00 Notify Of Changes [facility] 08/13/24 Verified From Base 04:51 House Director For [facility] 08/13/24 Verified 24 Hours 04:51 Emergency Dysrhythmia [facility] 08/13/24 Verified Protocol 04:51 Rhythm Strips Once [facility] 08/13/24 Verified Every Shift 04:51 Oxygen By Nasal 08/13/24 Verified Cannula 04:51 Problem List: (1) COPD with acute exacerbation (2) Acute respiratory failure (3) Hypertensive urgency (4) Acute respiratory failure with hypoxia Date of Service: Aug 13, 2024 Billing Provider: DELPHINE SHIPLEY DNP Common Visit Codes: [id number] INP/OBS CARE (HIGH) DELPHINE SHIPLEY DNP Aug 13, 2024 04:55
[2024-08-13] MEDS ORDERED: ONDANSETRON HCL 4 MG/2 ML VIAL IV PRN (05:00)
[2024-08-13] MEDS ORDERED: NITROGLYCERIN 0.4 MG SL TAB SL PRN (05:00)
[2024-08-13] MEDS ORDERED: MORPHINE SULFATE INJ 2 MG/ml SYRG IV PRN (05:00)
[2024-08-13] MEDS ORDERED: DOCUSATE SOD 100 MG CAP PO PRN (05:00)
[2024-08-13] MEDS ORDERED: HYDROcodone-ACET 5/325MG TAB PO PRN (05:00)
[2024-08-13] MEDS ORDERED: ACETAMINOPHEN 325 MG TAB PO PRN (05:00)
[2024-08-13 05:15] VITALS: PULSE 100; RESP 19; O2SAT 95
[2024-08-13] MEDS: SODIUM CHLOR 0.9% PF (SALINE LOCK) 10ML VIAL/SYR IV SCH (05:40)
[2024-08-13] MEDS: methylPREDNISolone SOD SUCC 40 MG/ML VL IV SCH (05:40)
[2024-08-13 05:47] LABS: Basophils # (auto) 0.1 10 ^3/uL (0-0.2); Basophils % (auto) 0.5 % (0.0-2.0); Eosinophils # (auto) 0.4 10 ^3/uL (0-0.8); Eosinophils % (auto) 2.5 % (0.0-7.0); Hematocrit 41.8 % (41.0-53.0); Hemoglobin 14.2 g/dL (13.5-17.5); Lymphocytes # (auto) 1.7 10 ^3/uL (0.4-5.4); Lymphocytes % (auto) 11.3 % (10.0-50.0); Mean Corpuscular Hemoglobin 30.2 pg (28.0-32.0); Mean Corpuscular Hgb Conc. 33.9 g/dL (32.0-36.0); Monocytes # (auto) 1.2 10 ^3/uL (0-1.3); Monocytes % (auto) 7.9 % (0.0-12.0); Neutrophils # (auto) 11.4 10 ^3/uL (1.6-8.6); Neutrophils % (auto) 77.8 % (37.0-80.0); Platelet Count (auto) 486 10^3/uL (140-450); Red Blood Cells 4.69 10^6/uL (4.5-5.90); White Blood Cell 14.7 10^3/uL (4.4-10.8)
[2024-08-13 06:10] LABS: Alanine Aminotransferase 23 U/L (7-40); Albumin 4.4 g/dL (3.2-4.8); Alkaline Phosphatase 77 U/L (46-116); Anion Gap 7 (5-15); Aspartate Aminotransferase 22 U/L (13-40); BUN/Creatinine Ratio 17.1 (10.0-20.0); Blood Urea Nitrogen 19 mg/dL (9-23); Calcium 9.9 mg/dL (8.7-10.4); Carbon Dioxide 29 mmol/L (20-31); Chloride 105 mmol/L (98-107); Potassium 3.7 mmol/L (3.5-5.1); Sodium 141 mmol/L (136-145)
[2024-08-13 06:11] LABS: Bilirubin, Total 0.7 mg/dL (0.2-1.0)
[2024-08-13 06:12] LABS: Glucose 112 mg/dL (74-106)
[2024-08-13 08:42] VITALS: BP 150/98; PULSE 100; RESP 20; TEMP 98.6; O2SAT 95
[2024-08-13] MEDS: FAMOTIDINE (10MG/ML) 2ML VL IV SCH (09:46)
[2024-08-13 14:46] VITALS: PULSE 98; RESP 18; O2SAT 95
[2024-08-13] MEDS: IPRATROPIUM BROM 0.5 MG/2.5ML INH SOL NEB PRN (14:46)
[2024-08-13] MEDS: ALBUTEROL SULF 2.5 MG/0.5ML(0.5%) NEB SOLN NEB PRN (14:47)
[2024-08-13 14:52] VITALS: PULSE 101; RESP 18; O2SAT 99
[2024-08-13 16:08] LABS: Base Excess 1.1 mmol/L (-2.0-3.0)
--- NOTE | 2024-08-13 16:39 | DVHPNRES ---
Progress Note Date Seen: Aug 13, 2024 Resident Creating Document: ZURI SANTANA RESIDENT Has the PT tested + for MRSA If YES, has PT been informed?: No Medical Necessity Reason Pt with a Central, PICC or Fol: No Subjective Review of Systems This is a 59-year-old male who comes into the ED with chief complain of shortness of Breath. Patient has a past medical history relevant for COPD, hypertension. Denies any surgeries. He also has a history of being a heavy smoker, occasional alcohol use, meth abuse and cannabis. Patient states that for the last three days he has been experiencing worsening shortness of breath, audible wheezing, chest tightness, dry cough. He was here in the ED recently due to similar symptoms but left AMA. Patient said that he came back because he was having severe shortness of breath Patient currently denies any chest pain, dizziness, lightheadedness. Denies any abdominal pain, nausea, vomiting, any recent sick contact. In the ED patient received breathing treatments, he was placed on nasal cannula 2 LT patient also received Solu-Medrol. A previous chest x-ray demonstrated significant radiolucency on left upper lung, likely a sizable bulla. Previous CT scan showed Severe emphysema. Bilateral lower lobe atelectasis. Cardiovascular: HTN Pulmonary: COPD Smoke: 1 pack per day ALCOHOL: occassional Drugs: Marijuana Lives: Homeless Objective vital signs Vital Sign Date Time Temp Pulse Resp B/P (MAP) Pulse Ox O2 Delivery O2 Flow Rate FiO2 08/13/24 14:52 101 18 99 08/13/24 14:46 Nasal Cannula 2.0 08/13/24 14:46 28 08/13/24 14:15 98.2 114/81 (92) 98.2 Total Intake and Output 08/12/24 08/12/24 08/13/24 15:00 23:00 07:00 Intake Total 100 ml 250 ml Balance 100 ml 250 ml medications Current Medications Medications Dose Ordered Sig/Sherine Route Start Time Stop Time Status Last Admin Dose Admin Albuterol 2.5 mg Q4HPRN PRN NEB 08/13/24 05:00 08/13/24 14:47 2.5 MG Ipratropium Flippin 0.5 mg Q4HPRN PRN NEB 08/13/24 05:00 08/13/24 14:46 0.5 MG Methylprednisolone Sodium Succinate 40 mg Q8HR IV 08/13/24 06:00 08/13/24 14:32 40 MG Famotidine 20 mg Q12HR IV 08/13/24 10:00 08/13/24 09:46 20 MG Azithromycin 250 ml @ 125 mls/hr Q24H IV 08/13/24 19:00 Sodium Chloride 10 ml Q8HR IV 08/13/24 06:00 08/13/24 14:32 10 ML Acetaminophen/ Hydrocodone Bitart 1 tab Q4HP PRN PO 08/13/24 05:00 Ondansetron HCl 4 mg Q4HP PRN IV 08/13/24 05:00 Docusate Sodium 100 mg BIDPRN PRN PO 08/13/24 05:00 Acetaminophen 650 mg Q6HP PRN PO 08/13/24 05:00 Nitroglycerin 0.4 mg Q5MINP PRN SL 08/13/24 05:00 Morphine Sulfate 2 mg Q30M PRN IV 08/13/24 05:00 Examination General Appearance: Alert, Oriented X3, Cooperative, mild distress HEENT: Atraumatic, PERRLA, EOMI, Mucous membr. moist/pink Respiratory: Other (Bilateral wheezing, diminished breath sound on left upper lung) Cardiovascular: Regular rate, Normal S1, Normal S2, No murmurs Abdominal: Normal bowel sounds, Soft, No tenderness, No hepatospenomegaly Extremities: No clubbing, No cyanosis, No edema, Normal pulses, No tenderness/swelling Skin: No rashes, No breakdown, No significant lesion Neuro: Normal gait, Normal speech, Strength at 5/5 X4 ext, Normal tone, Sensation intact Psych/Mental Status: Mental status NL, Mood NL laboratory and microbiology Laboratory Tests 08/13/24 05:09 Test 08/13/24 05:09 Range/Units Serum Glucose 112 H 74-106 mg/dL Problem List/Assessment/Plan Problem List/Assessment/Plan #Acute hypoxic respiratory failure likely due to COPD, possible pneumonia Continue 2 LT O2, titrate down as tolerated, maintain an oxygen saturation between 88-92% Home O2 : po2 45 #COPD exacerbation #Bullous emphysema Solu-Medrol 40 mg IV TID DuoNebs q.4 hours while awake Consult pulmonology Dr. Al Order echocardiogram to classify possible pulmonary hypertension #Leukocytosis, likely reactive due to glucocorticoids Monitor #Possible atypical pneumonia, Gram-positive versus Gram-negative, rule out viral Azithromycin COVID and flu neg Order MRSA swab and sputum culture #History of polysubstance abuse #Current heavy smoker Counseled on lifestyle modification UDS #Hypertension, controlled Monitor Cardiac diet #Prediabetes Consistent carb diet SSI mild Prophylactic Lovenox Goals of care were discussed for 30 minutes. Full code Case was discussed with Dr. Mora Plan discussed with: Patient, Other (rn) My Orders My Orders Orders - ZURI SANTANA RESIDENT Procedure Category Date Status Time Abg W/ Co-Ox RT 08/13/24 Logged 15:28 Echo 2d Mode Cardiac US 08/13/24 Logged DOP 15:34 * Recreation Counselor CONS 08/13/24 Transmitted Consult Date of Service: Aug 13, 2024 Billing Provider: BRYANT MORA MD Common Visit Codes: [id number] INP/OBS CARE(HIGH) ZURI SANTANA RESIDENT Aug 13, 2024 16:39 BRYANT MORA MD Aug 14, 2024 22:43
[2024-08-13 19:25] VITALS: PULSE 94; RESP 16; O2SAT 97
[2024-08-13] MEDS: AZITHROMYCIN 500MG/ 250ML 250 ML IV SCH (19:28)
--- NOTE | 2024-08-13 23:41 | DVHINCON2 ---
Date of service: Aug 13, 2024 Referring Physician Lovely Joyner MD Reason for Consultation Acute hypoxic respiratory failure, COPD exacerbation History of Present Illness 59-year-old man with past medical history of COPD who presented to ED on 08/12/24 with complaint of shortness of breath. Patient reports symptoms progressively got worse with chest pain. He was admitted in this hospital yesterday but left AMA. ED workup shows WBC 19.0, platelets 445, sodium 141, potassium 3.8, BUN 23, creatinine 1.17, GFR 72, glucose 117, troponin 15. Blood pressure was 169/69, heart rate 100, temperature 98.8 F, O2 saturation 97% on oxygen. Chest x-ray revealed emphysema with bibasilar atelectasis or scarring, bleb in the left upper lung field. Patient was admitted for further care and pulmonary consultation is requested for evaluation and management of acute hypoxic respiratory failure and COPD exacerbation. Review of Systems: 14-point review of systems negative unless otherwise noted above. Past Medical History: COPD Past Surgical History: None Medications: Reviewed. Allergies: Penicillin. Family History: No family history of premature CAD. No family history of lung disorders. Social History: Smoker. No alcohol or illicit drug use. Allergies: Coded Allergies: Penicillins (Verified Allergy, Unknown, 10/11/23) Home Meds Active Scripts Promethazine-Dm (Promethazine Dm 6.25-15 mg/5Ml) 1 Melany Melany, 5 ML PO TID, #180 ML Prov:RAHEEM PEARSON 10/11/23 Azithromycin (Azithromycin) 500 Mg Tab, 1 TAB PO DAILY, #5 TAB Prov:RAHEEM PEARSON 10/11/23 Levofloxacin Hemihydrate (LEVAQUIN 500 MG) 500 Mg Tab, 1 TAB PO DAILY, #10 TAB Prov:RAHEEM PEARSON 10/11/23 Current Medications Current Medications Medications (Trade) Dose Ordered Sig/Sherine Route PRN Reason Start Time Stop Time Status Last Admin Albuterol (Ventolin Medneb) 2.5 mg Q4HPRN PRN NEB SHORTNESS OF BREATH 08/13/24 05:00 08/13/24 14:47 Ipratropium [place] (Atrovent Medneb) 0.5 mg Q4HPRN PRN NEB SHORTNESS OF BREATH 08/13/24 05:00 08/13/24 14:46 Methylprednisolone Sodium Succinate (Solu Medrol) 40 mg Q8HR IV 08/13/24 06:00 08/13/24 22:24 Famotidine (Pepcid Injection) 20 mg Q12HR IV 08/13/24 10:00 08/13/24 22:24 Azithromycin 250 ml @ 125 mls/hr Q24H IV 08/13/24 19:00 08/13/24 19:28 Sodium Chloride (Saline Lock Ns) 10 ml Q8HR IV 08/13/24 06:00 08/13/24 21:58 Acetaminophen/ Hydrocodone Bitart ([place] 5/325MG Tab) 1 tab Q4HP PRN PO MODERATE PAIN (4-6 PAIN SCALE) 08/13/24 05:00 Ondansetron HCl (Zofran) 4 mg Q4HP PRN IV NAUSEA / VOMITING 08/13/24 05:00 Docusate Sodium (Colace Capsule) 100 mg BIDPRN PRN PO FOR CONSTIPATION 08/13/24 05:00 Acetaminophen (Tylenol Tablet) 650 mg Q6HP PRN PO PAIN SCALE 1-3 OR TEMP>100.4 08/13/24 05:00 Nitroglycerin (Ntrostat Sublingual) 0.4 mg Q5MINP PRN SL FOR CHEST PAIN 08/13/24 05:00 Morphine Sulfate 2 mg Q30M PRN IV FOR CHEST PAIN 08/13/24 05:00 Vital Signs Vital Signs Date Time Temp Pulse Resp B/P (MAP) Pulse Ox O2 Delivery O2 Flow Rate FiO2 08/13/24 22:25 98.5 86 18 145/114 (124) 93 98.5 08/13/24 19:25 Nasal Cannula* 2 28 Physical Exam Gen.: Patient lying in bed in no apparent distress. On supplemental oxygen. Head: Normocephalic, atraumatic. Eyes: EOMI/PERRLA. Ears: Normal hearing. Normal anatomy. Neck/trachea: Trachea midline, supple. Nose: Normal external anatomy. Mouth: Moist mucous membranes. Chest: Decreased air entry bilaterally. No wheezing or rhonchi. Cardiovascular: Positive S1, positive S2. Regular rate and rhythm. Abdomen: Positive bowel sounds in all 4 quadrants. Soft, non-tender, non- distended. : Deferred. Rectal: Deferred. Skin: Warm, dry. Intact. Extremities: 2+ radial pulses bilaterally. No lower extremity edema. Neuro: Awake, alert, oriented x3. No gross motor or sensory deficits. Cranial nerves II through XII intact. Gait not assessed. Labs/Diagnostic Data Labs Test 08/13/24 16:03 08/13/24 05:09 08/12/24 17:43 Range/Units Blood Gas Specimen Type Arterial Blood Gas Sample Site Right radial Blood Gas Patient Temperature 37.0 Arterial Blood Date Drawn [id number] Arterial Blood pH 7.435 7.350-7.450 Arterial Blood Partial Pressure CO2 38.4 35.0-48.0 mmHg Arterial Blood Partial Pressure O2 49.8 *L 83.0-108.0 mmHg Arterial Blood HCO3 25.2 21.0-28.0 mmol/L Arterial Blood Oxygen Saturation 84.8 *L 94.0-98.0 % Arterial Blood Base Excess 1.1 -2.0-3.0 mmol/L Arterial Blood Oxyhemoglobin 82.8 L 94.0-98.0 % Arterial Blood Carboxyhemoglobin 1.7 H 0.5-1.5 % Arterial Blood Methemoglobin 0.7 0.0-1.5 % Emir Test Yes Blood Gas Total Hemoglobin 14.10 13.5-17.5 g/dL Blood Gas Modality Room air FiO2 % 21.0 Blood Gas Critical Value Read Back yes Blood Gas Notified Whom monico Loo md Blood Gas Notified Time [id number] Blood Gas Notified By White Blood Count 14.7 H 4.4-10.8 10^3/uL Red Blood Count 4.69 4.5-5.90 10^6/uL Hemoglobin 14.2 13.5-17.5 g/dL Hematocrit 41.8 41.0-53.0 % Mean Corpuscular Volume 89.0 80.0-100.0 fL Mean Corpuscular Hemoglobin 30.2 28.0-32.0 pg Mean Corpuscular Hemoglobin Concent 33.9 32.0-36.0 g/dL Red Cell Distribution Width 14.0 11.8-14.3 % Platelet Count 486 H 140-450 10^3/uL Mean Platelet Volume 6.7 L 6.9-10.8 fL Neutrophils (%) (Auto) 77.8 37.0-80.0 % Lymphocytes (%) (Auto) 11.3 10.0-50.0 % Monocytes (%) (Auto) 7.9 0.0-12.0 % Eosinophils (%) (Auto) 2.5 0.0-7.0 % Basophils (%) (Auto) 0.5 0.0-2.0 % Neutrophils # (Auto) 11.4 H 1.6-8.6 10 ^3/uL Lymphocytes # (Auto) 1.7 0.4-5.4 10 ^3/uL Monocytes # (Auto) 1.2 0-1.3 10 ^3/uL Eosinophils # (Auto) 0.4 0-0.8 10 ^3/uL Basophils # (Auto) 0.1 0-0.2 10 ^3/uL Nucleated Red Blood Cells 0.0 % Sodium Level 141 136-145 mmol/L Potassium Level 3.7 3.5-5.1 mmol/L Chloride Level 105 98-107 mmol/L Carbon Dioxide Level 29 20-31 mmol/L Anion Gap 7 5-15 Blood Urea Nitrogen 19 9-23 mg/dL Creatinine 1.11 0.700-1.30 mg/dL Glomerular Filtration Rate Calc 77 >90 mL/min BUN/Creatinine Ratio 17.1 10.0-20.0 Serum Glucose 112 H 74-106 mg/dL Calcium Level 9.9 8.7-10.4 mg/dL Total Bilirubin 0.7 0.2-1.0 mg/dL Aspartate Amino Transferase (AST) 22 13-40 U/L Alanine Aminotransferase (ALT) 23 7-40 U/L Alkaline Phosphatase 77 46-116 U/L Total Protein 7.0 5.7-8.2 g/dL Albumin 4.4 3.2-4.8 g/dL Troponin I High Sensitivity 15 </=54 ng/L Assessment Impression: Acute hypoxic respiratory failure Dependence on supplemental oxygen Hypertensive urgency COPD with acute exacerbation Nicotine dependence Plan: Supplemental oxygen Titrate to keep O2 sats above 92%. Taper O2 as tolerated. ABG reviewed, notable for hypoxemia, compensated. Chest x-ray revealed emphysema with bibasilar atelectasis or scarring, bleb in the left upper lung field. Continue bronchodilators. Continue antibiotics IV steroids Incentive spirometry Monitor renal function. Monitor electrolytes. Supplement as necessary. Monitor ins and outs. Smoking cessation discussed for greater than 10 minutes DVT prophylaxis. Prognosis: Poor given patient's multiple co-morbidities. Rest of plan per hospitalist and other consultants. Thank you Dr. Joyner for allowing me to participate in this patient's care. Further recommendations will depend on the patient's clinical course. Please do not hesitate to contact me if you have any questions or concerns. This medical document was created using an electronic medical record system with [employer] dictation system. Although these documentations are being carefully reviewed, there may still be some phonetic and typographical changes. The errors are purely typographical, due to imperfection on the software program, and do not reflect any compromise in the patient's medical care. Plan discussed with: Patient, Other (VANDANA Baird/MD Joyner) ETHAN LOONEY MD Aug 13, 2024 23:41
[2024-08-14] VITALS (8 sets, daily range): BP systolic 164; BP diastolic 106; PULSE 81–109; RESP 17–20; TEMP 98.3; O2SAT 92–99
[2024-08-14 05:02] LABS: Basophils # (auto) 0 10 ^3/uL (0-0.2); Basophils % (auto) 0.2 % (0.0-2.0); Eosinophils # (auto) 0 10 ^3/uL (0-0.8); Hematocrit 39.8 % (41.0-53.0); Hemoglobin 13.9 g/dL (13.5-17.5); Lymphocytes # (auto) 0.9 10 ^3/uL (0.4-5.4); Lymphocytes % (auto) 6.5 % (10.0-50.0); Mean Corpuscular Hemoglobin 30.8 pg (28.0-32.0); Mean Corpuscular Hgb Conc. 34.9 g/dL (32.0-36.0); Monocytes # (auto) 0.8 10 ^3/uL (0-1.3); Monocytes % (auto) 5.7 % (0.0-12.0); Neutrophils # (auto) 12.8 10 ^3/uL (1.6-8.6); Neutrophils % (auto) 87.6 % (37.0-80.0); Platelet Count (auto) 510 10^3/uL (140-450); Red Blood Cells 4.52 10^6/uL (4.5-5.90); Red Cell Distribution Width 13.8 % (11.8-14.3); White Blood Cell 14.6 10^3/uL (4.4-10.8)
[2024-08-14 05:20] LABS: Alanine Aminotransferase 21 U/L (7-40); Albumin 4.6 g/dL (3.2-4.8); Alkaline Phosphatase 80 U/L (46-116); Anion Gap 8 (5-15); Aspartate Aminotransferase 13 U/L (13-40); BUN/Creatinine Ratio 20.6 (10.0-20.0); Calcium 9.9 mg/dL (8.7-10.4); Carbon Dioxide 26 mmol/L (20-31); Potassium 4.2 mmol/L (3.5-5.1); Sodium 141 mmol/L (136-145)
[2024-08-14 05:21] LABS: Bilirubin, Total 0.5 mg/dL (0.2-1.0); Total Protein 7.2 g/dL (5.7-8.2)
[2024-08-14 05:31] LABS: Blood Urea Nitrogen 26 mg/dL (9-23); Chloride 107 mmol/L (98-107); Glucose 144 mg/dL (74-106)
--- NOTE | 2024-08-14 10:05 | DVHPNRES ---
Progress Note Date Seen: Aug 14, 2024 Resident Creating Document: ZURI SANTANA RESIDENT Has the PT tested + for MRSA If YES, has PT been informed?: No Medical Necessity Reason Pt with a Central, PICC or Fol: No Subjective Review of Systems This is a 59-year-old male who comes into the ED with chief complain of shortness of Breath. Patient has a past medical history relevant for COPD, hypertension. Denies any surgeries. He also has a history of being a heavy smoker, occasional alcohol use, meth abuse and cannabis. Patient states that for the last three days he has been experiencing worsening shortness of breath, audible wheezing, chest tightness, dry cough. He was here in the ED recently due to similar symptoms but left AMA. Patient said that he came back because he was having severe shortness of breath Patient currently denies any chest pain, dizziness, lightheadedness. Denies any abdominal pain, nausea, vomiting, any recent sick contact. In the ED patient received breathing treatments, he was placed on nasal cannula 2 LT patient also received Solu-Medrol. A previous chest x-ray demonstrated significant radiolucency on left upper lung, likely a sizable bulla. Previous CT scan showed Severe emphysema. Bilateral lower lobe atelectasis. Cardiovascular: HTN Pulmonary: COPD Smoke: 1 pack per day ALCOHOL: occassional Drugs: Marijuana Lives: Homeless Objective vital signs Vital Sign Date Time Temp Pulse Resp B/P (MAP) Pulse Ox O2 Delivery O2 Flow Rate FiO2 08/14/24 09:45 81 20 93 Nasal Cannula* 2 28 08/14/24 09:45 97.9 154/102 (119) 97.9 Total Intake and Output 08/13/24 08/13/24 08/14/24 15:00 23:00 07:00 Intake Total 250 ml Balance 250 ml medications Current Medications Medications Dose Ordered Sig/Sherine Route Start Time Stop Time Status Last Admin Dose Admin Albuterol 2.5 mg Q4HPRN PRN NEB 08/13/24 05:00 08/14/24 04:06 2.5 MG Ipratropium [place] 0.5 mg Q4HPRN PRN NEB 08/13/24 05:00 08/14/24 04:06 0.5 MG Methylprednisolone Sodium Succinate 40 mg Q8HR IV 08/13/24 06:00 08/14/24 05:32 40 MG Famotidine 20 mg Q12HR IV 08/13/24 10:00 08/14/24 09:51 20 MG Azithromycin 250 ml @ 125 mls/hr Q24H IV 08/13/24 19:00 08/13/24 19:28 125 MLS/HR Sodium Chloride 10 ml Q8HR IV 08/13/24 06:00 08/14/24 05:27 10 ML Acetaminophen/ Hydrocodone Bitart 1 tab Q4HP PRN PO 08/13/24 05:00 Ondansetron HCl 4 mg Q4HP PRN IV 08/13/24 05:00 Docusate Sodium 100 mg BIDPRN PRN PO 08/13/24 05:00 Acetaminophen 650 mg Q6HP PRN PO 08/13/24 05:00 Nitroglycerin 0.4 mg Q5MINP PRN SL 08/13/24 05:00 Morphine Sulfate 2 mg Q30M PRN IV 08/13/24 05:00 Examination General Appearance: Alert, Oriented X3, Cooperative, mild distress HEENT: Atraumatic, PERRLA, EOMI, Mucous membr. moist/pink Respiratory: Bilateral wheezing that is improving , diminished breath sound on left upper lung Cardiovascular: Regular rate, Normal S1, Normal S2, No murmurs Abdominal: Normal bowel sounds, Soft, No tenderness, No hepatospenomegaly Extremities: No clubbing, No cyanosis, No edema, Normal pulses, No tenderness/swelling Skin: No rashes, No breakdown, No significant lesion Neuro: Normal gait, Normal speech, Strength at 5/5 X4 ext, Normal tone, Sensation intact Psych/Mental Status: Mental status NL, Mood NL laboratory and microbiology Laboratory Tests 08/14/24 04:37 Test 08/14/24 04:37 Range/Units Serum Glucose 144 H 74-106 mg/dL Problem List/Assessment/Plan Problem List/Assessment/Plan #Acute hypoxic respiratory failure likely due to COPD, possible pneumonia Continue 2 LT O2, titrate down as tolerated, maintain an oxygen saturation between 88-92% Home O2 : po2 45 SS for home O2 and placement: pt stated he is homeless #COPD exacerbation #Bullous emphysema Solu-Medrol 40 mg IV TID DuoNebs q.4 hours while awake Consult pulmonology Dr. Al Order echocardiogram to classify possible pulmonary hypertension #Leukocytosis, likely reactive due to glucocorticoids Monitor #Possible atypical pneumonia, Gram-positive versus Gram-negative, rule out viral Azithromycin and ceftriaxone COVID and flu neg Order MRSA swab and sputum culture #History of polysubstance abuse #Current heavy smoker Counseled on lifestyle modification UDS #Hypertension, controlled Losartan 50 mg daily Monitor Cardiac diet #Prediabetes Consistent carb diet SSI mild Prophylactic Lovenox Goals of care were discussed for 30 minutes. Full code Case was discussed with Dr. Mora Plan discussed with: Patient, Other My Orders My Orders Orders - ZURI SANTANA RESIDENT Procedure Category Date Status Time Abg W/ Co-Ox RT 08/13/24 Logged 15:28 * Tax Appraiser CONS 08/13/24 Transmitted Consult *Consult CONS 08/13/24 Transmitted / 16:54 Mrsa Screen SAVANNA 08/14/24 Uncollected 07:32 Respiratory Culture SAVANNA 08/14/24 Uncollected W/ Gs 07:32 Drug Screen LAB 08/14/24 Logged 07:35 Urinalysis LAB 08/14/24 Logged 07:35 Echo 2d Mode Cardiac US 08/14/24 Logged DOP 15:34 * Tax Appraiser CONS 08/14/24 Transmitted Consult Date of Service: Aug 14, 2024 Billing Provider: BRYANT MORA MD Common Visit Codes: [id number] INP/OBS CARE(HIGH) ZURI SANTANA RESIDENT Aug 14, 2024 10:05 BRYANT MORA MD Aug 14, 2024 22:43
[2024-08-14 10:24] LABS: Urine Bacteria None Seen /hpf (None Seen)
[2024-08-14 10:30] LABS: Urine Blood Negative /uL (Negative); Urine Clarity Clear (Clear); Urine Color Light-Yellow (Yellow); Urine Protein, UAD TRACE (Negative); Urine Specific Gravity 1.027 (1.001-1.035); Urine Squamous Epithelial Cell None Seen /hpf (<5); Urine Urobilinogen Normal (Negative); Urine WBC < 1 /HPF (0-3)
[2024-08-14 10:39] LABS: Amphetamine Screen, Urine Neg (NEGATIVE)
[2024-08-14 10:41] LABS: Barbiturate Scree,Urine Neg (NEGATIVE); Benzodiazephine Screen, Urine Neg (NEGATIVE); Cannabinoid Screen, Urine Neg (NEGATIVE); Cocaine Screen, Urine Neg (NEGATIVE); Opiate Scree,Urine Neg (NEGATIVE); Phencyclidine Screen, Urine Neg (NEGATIVE)
[2024-08-14] MEDS: LOSARTAN POTASSIUM 50 MG TAB PO SCH (12:01)
[2024-08-14] MEDS: cefTRIAXone 1GM/50ML D5W 50 ML IV SCH (12:02)
[2024-08-14] MEDS: ENOXAPARIN SOD 40 MG/0.4 ML SYRINGE SC SCH (12:03)
[2024-08-14] MEDS: NICOTINE 21MG/24 HR TOPICAL PATCH TD SCH (17:30)
[2024-08-14] MEDS: diphenhdrAMINE HCL 50 MG/1 ML VL IV ONE (19:51)
--- NOTE | 2024-08-14 20:21 | DVHPN2 ---
Progress Note - Dictate Date Seen: Aug 14, 2024 Has the PT tested + for MRSA If YES, has PT been informed?: No Medical Necessity Reason Pt with a Central, PICC or Fol: No Subjective Patient seen and examined at bedside. Remains on supplemental oxygen Overnight events reviewed. vital signs Vital Sign Date Time Temp Pulse Resp B/P (MAP) Pulse Ox O2 Delivery O2 Flow Rate FiO2 08/14/24 15:00 97.6 89 24 154/97 (116) 94 97.6 08/14/24 09:45 Nasal Cannula* 2 28 Total Intake and Output 08/13/24 08/13/24 08/14/24 15:00 23:00 07:00 Intake Total 250 ml Balance 250 ml medications Current Medications Medications Dose Ordered Sig/Sherine Route Start Time Stop Time Status Last Admin Dose Admin Albuterol 2.5 mg Q4HPRN PRN NEB 08/13/24 05:00 08/14/24 04:06 2.5 MG Ipratropium [place] 0.5 mg Q4HPRN PRN NEB 08/13/24 05:00 08/14/24 04:06 0.5 MG Methylprednisolone Sodium Succinate 40 mg Q8HR IV 08/13/24 06:00 08/14/24 14:45 40 MG Famotidine 20 mg Q12HR IV 08/13/24 10:00 08/14/24 09:51 20 MG Azithromycin 250 ml @ 125 mls/hr Q24H IV 08/13/24 19:00 08/14/24 19:05 125 MLS/HR Sodium Chloride 10 ml Q8HR IV 08/13/24 06:00 08/14/24 14:45 10 ML Acetaminophen/ Hydrocodone Bitart 1 tab Q4HP PRN PO 08/13/24 05:00 Ondansetron HCl 4 mg Q4HP PRN IV 08/13/24 05:00 Docusate Sodium 100 mg BIDPRN PRN PO 08/13/24 05:00 Acetaminophen 650 mg Q6HP PRN PO 08/13/24 05:00 Nitroglycerin 0.4 mg Q5MINP PRN SL 08/13/24 05:00 Morphine Sulfate 2 mg Q30M PRN IV 08/13/24 05:00 Ceftriaxone Sodium 50 ml @ 100 mls/hr DAILY@09 IV 08/14/24 10:30 08/14/24 12:02 100 MLS/HR Losartan Potassium 50 mg DAILY PO 08/14/24 10:30 08/14/24 12:01 50 MG Enoxaparin Sodium 40 mg DAILY SC 08/14/24 10:45 08/14/24 12:03 40 MG Nicotine 1 patch DAILY TD 08/14/24 17:09 08/14/24 17:49 1 PATCH objective Gen.: Patient lying in bed in no apparent distress. On supplemental oxygen. Head: Normocephalic, atraumatic. Eyes: EOMI/PERRLA. Ears: Normal hearing. Normal anatomy. Neck/trachea: Trachea midline, supple. Nose: Normal external anatomy. Mouth: Moist mucous membranes. Chest: Decreased air entry bilaterally. No wheezing or rhonchi. Cardiovascular: Positive S1, positive S2. Regular rate and rhythm. Abdomen: Positive bowel sounds in all 4 quadrants. Soft, non-tender, non- distended. : Deferred. Rectal: Deferred. Skin: Warm, dry. Intact. Extremities: 2+ radial pulses bilaterally. No lower extremity edema. Neuro: Awake, alert, oriented x3. No gross motor or sensory deficits. Cranial nerves II through XII intact. Gait not assessed. laboratory and microbiology Laboratory Tests 08/14/24 04:37 Test 08/14/24 04:37 Range/Units Serum Glucose 144 H 74-106 mg/dL Assessment/Plan Impression: Acute hypoxic respiratory failure Dependence on supplemental oxygen Hypertensive urgency COPD with acute exacerbation Nicotine dependence Events: Remains on supplemental oxygen, 2 LPM NC Taper O2 as tolerated Continue bronchodilators Continue IV steroids Continue antibiotics Pepcid for GI prophylaxis Labs and imaging reviewed. Rest of plan as noted below. Plan: Supplemental oxygen Titrate to keep O2 sats above 92%. Taper O2 as tolerated. Continue bronchodilators. Continue antibiotics IV steroids Incentive spirometry Monitor renal function. Monitor electrolytes. Supplement as necessary. Monitor ins and outs. Smoking cessation discussed for greater than 10 minutes DVT prophylaxis. Prognosis: Guarded given patient's multiple co-morbidities. Rest of plan per hospitalist and other consultants. Thank you Dr. Joyner for allowing me to participate in this patient's care. Further recommendations will depend on the patient's clinical course. Please do not hesitate to contact me if you have any questions or concerns. This medical document was created using an electronic medical record system with Dragon computerized dictation system. Although these documentations are being carefully reviewed, there may still be some phonetic and typographical changes. The errors are purely typographical, due to imperfection on the software program, and do not reflect any compromise in the patient's medical care. Plan discussed with: Patient, Other (RN, MD) ETHAN LOONEY MD Aug 14, 2024 20:21
[2024-08-15] VITALS (17 sets, daily range): BP systolic 146–178; BP diastolic 95–136; PULSE 66–108; RESP 16–92; TEMP 97.7–98.5; O2SAT 91–100
[2024-08-15] MEDS: hydrALAZINE HCL 20 MG/ML VL IV PRN (01:08)
[2024-08-15 06:12] LABS: Basophils # (auto) 0 10 ^3/uL (0-0.2); Basophils % (auto) 0.3 % (0.0-2.0); Eosinophils # (auto) 0 10 ^3/uL (0-0.8); Hematocrit 41.7 % (41.0-53.0); Hemoglobin 14.5 g/dL (13.5-17.5); Lymphocytes # (auto) 0.8 10 ^3/uL (0.4-5.4); Lymphocytes % (auto) 6.6 % (10.0-50.0); Mean Corpuscular Hemoglobin 30.9 pg (28.0-32.0); Mean Corpuscular Hgb Conc. 34.7 g/dL (32.0-36.0); Mean Corpuscular Volume 88.9 fL (80.0-100.0); Monocytes # (auto) 0.5 10 ^3/uL (0-1.3); Monocytes % (auto) 4.1 % (0.0-12.0); Neutrophils # (auto) 10.8 10 ^3/uL (1.6-8.6); Platelet Count (auto) 497 10^3/uL (140-450); Red Cell Distribution Width 13.6 % (11.8-14.3); White Blood Cell 12.1 10^3/uL (4.4-10.8)
[2024-08-15] MEDS ORDERED: NIFEdipine ER 30 MG TAB PO ONE (07:30)
[2024-08-15] MEDS ORDERED: cefTRIAXone 1GM/50ML D5W 50 ML IV SCH (09:00)
[2024-08-15] MEDS ORDERED: LOSARTAN POTASSIUM 50 MG TAB PO SCH (10:00)
[2024-08-15 10:43] LABS: Base Excess 1.9 mmol/L (-2.0-3.0)
[2024-08-15] MEDS: EPINEPHrine HCL 0.5 ML NEB ONE (15:15)
[2024-08-15] MEDS ORDERED: EPINEPHrine HCL 0.5 ML NEB NEB ONE ×2 (15:15→18:00)
--- NOTE | 2024-08-15 15:39 | DVH ---
CHEST RADIOGRAPH Indication: pneumo Technique: Single frontal view of the chest was obtained Comparison: XY CHEST PORTABLE on DOS: 08/12/24, XY CHEST PORTABLE on DOS: 08/10/24, XY CHEST PORTABLE on DOS: 10/11/23 FINDINGS: Lines and Tubes: None Lungs: No focal consolidation. Pleura: No effusion. No pneumothorax. Cardiomediastinal contours: Unremarkable Bones: No acute osseous abnormality. IMPRESSION: 1. Improving bibasilar infiltrates with persistent airspace disease and areas of atelectasis.
--- NOTE | 2024-08-15 16:48 | DVHPNRES ---
Progress Note Date Seen: Aug 15, 2024 Resident Creating Document: JHFERDINAND WOODLINH RESIDENT Has the PT tested + for MRSA If YES, has PT been informed?: No Medical Necessity Reason Pt with a Central, PICC or Fol: No Subjective Review of Systems Patient is seen examined with the bedside In the morning, patient was saturating more than 92% on room air and oxygen was taken off. On reexamination in the afternoon patient was found to be sitting in a tripod position with difficulty breathing and on examination had wheezing in the neck. Racemic epinephrine was given and the patient was put on continuous pulse ox Objective vital signs Vital Sign Date Time Temp Pulse Resp B/P (MAP) Pulse Ox O2 Delivery O2 Flow Rate FiO2 08/15/24 15:23 101 24 97 08/15/24 15:15 Room Air 0.0 08/15/24 15:15 21 08/15/24 13:00 98.0 178/117 (137) 98.0 Total Intake and Output 08/14/24 08/14/24 08/15/24 15:00 23:00 07:00 Intake Total 50 ml 250 ml 750 ml Output Total 1000 ml Balance 50 ml 250 ml -250 ml medications Current Medications Medications Dose Ordered Sig/Sherine Route Start Time Stop Time Status Last Admin Dose Admin Albuterol 2.5 mg Q4HPRN PRN NEB 08/13/24 05:00 08/15/24 07:03 2.5 MG Ipratropium [place] 0.5 mg Q4HPRN PRN NEB 08/13/24 05:00 08/15/24 07:03 0.5 MG Azithromycin 250 ml @ 125 mls/hr Q24H IV 08/13/24 19:00 08/14/24 19:05 125 MLS/HR Sodium Chloride 10 ml Q8HR IV 08/13/24 06:00 08/15/24 16:01 10 ML Acetaminophen 650 mg Q6HP PRN PO 08/13/24 05:00 Ceftriaxone Sodium 50 ml @ 100 mls/hr DAILY@09 IV 08/14/24 10:30 08/15/24 09:20 100 MLS/HR Losartan Potassium 50 mg DAILY PO 08/14/24 10:30 08/15/24 08:44 50 MG Enoxaparin Sodium 40 mg DAILY SC 08/14/24 10:45 08/15/24 08:44 40 MG Nicotine 1 patch DAILY TD 08/14/24 17:09 08/15/24 08:43 1 PATCH Famotidine 20 mg DAILY PO 08/16/24 10:00 Methylprednisolone Sodium Succinate 40 mg BID IV 08/15/24 22:00 Examination Physical Examination Constitutional: Patient is alert and oriented to time, place and person and had difficulty breathing in the upper airway Gen - no pallor, no icterus, no cyanosis, no clubbing, no LAD, no edema . Skin - Patients skin is warm and dry.. HEENT - normocephalic, atraumatic, dry mucous membranes Neck - full ROM, no LAD, no JVD Pulmonary - B/L decreased breath with scattered wheezes cardiovascular - normal S1,S2 heard. no murmurs heard. peripheral pulses normal radial 2+, pedal 2+. GI - soft abdomen without tenderness to palpation. no hepatospleenomegaly. Bowel sounds normoactive Neurological - Bilateral upper extremity strength 5/5, bilateral lower extremity strength 5/5, no facial droop, normal speech, no tremor, no sensory deficiets. laboratory and microbiology Laboratory Tests 08/15/24 05:35 08/14/24 04:37 Test 08/14/24 04:37 Range/Units Serum Glucose 144 H 74-106 mg/dL Problem List/Assessment/Plan Problem List/Assessment/Plan #Acute hypoxic respiratory failure likely due to COPD, possible pneumonia #Possible atypical pneumonia, Gram-positive versus Gram-negative, rule out viral #COPD exacerbation #Bullous emphysema # Sinusitis # ?acute otitis media Continue 2 LT O2, titrate down as tolerated, maintain an oxygen saturation between 88-92% repeat ABG shows O2 at 57 Solu-Medrol 40 mg IV TID DuoNebs q.4 hours while awake Consult pulmonology Dr. Al Order echocardiogram to classify possible pulmonary hypertension Azithromycin and ceftriaxone - racemic epinephrine for suspected upper airway constriction #Leukocytosis, likely reactive due to glucocorticoids Monitor #History of polysubstance abuse #Current heavy smoker Counseled on lifestyle modification UDS #Hypertension, controlled Losartan 50 mg daily Monitor Cardiac diet #Prediabetes Consistent carb diet SSI mild Prophylactic Lovenox Goals of care were discussed for 30 minutes. Full code Case was discussed with Dr. Puckett Plan discussed with: Patient My Orders My Orders Orders - JHMATHEW WOOD Procedure Category Date Status Time Methylprednisolone PHA 08/15/24 In Process Sod Succ (Solu Medrol 22:00 Chest Xray 1 View XY 08/15/24 Resulted 14:10 Date of Service: Aug 15, 2024 Billing Provider: BRYANT PUCKETT MD Common Visit Codes: [id number] INP/OBS CARE(HIGH) MATHEW SAUNDERS RESIDENT Aug 15, 2024 16:48 BRYANT PUCKETT MD Aug 15, 2024 18:59
[2024-08-15] MEDS: LOSARTAN POTASSIUM 50 MG TAB PO ONE (18:52)
[2024-08-15] MEDS: methylPREDNISolone SOD SUCC 40 MG/ML VL IV SCH (21:58)
[2024-08-15] MEDS ORDERED: methylPREDNISolone SOD SUCC 40 MG/ML VL IV SCH (22:00)
--- NOTE | 2024-08-15 22:50 | DVHPN2 ---
Progress Note - Dictate Date Seen: Aug 15, 2024 Has the PT tested + for MRSA If YES, has PT been informed?: No Medical Necessity Reason Pt with a Central, PICC or Fol: No Subjective Patient seen and examined at bedside. Currently on room air Overnight events reviewed. vital signs Vital Sign Date Time Temp Pulse Resp B/P (MAP) Pulse Ox O2 Delivery O2 Flow Rate FiO2 08/15/24 18:52 173/110 08/15/24 18:46 101 24 98 08/15/24 17:00 98.1 98.1 08/15/24 15:15 Room Air 0.0 08/15/24 15:15 21 Total Intake and Output 08/14/24 08/14/24 08/15/24 15:00 23:00 07:00 Intake Total 50 ml 250 ml 750 ml Output Total 1000 ml Balance 50 ml 250 ml -250 ml medications Current Medications Medications Dose Ordered Sig/Sherine Route Start Time Stop Time Status Last Admin Dose Admin Albuterol 2.5 mg Q4HPRN PRN NEB 08/13/24 05:00 08/15/24 18:43 2.5 MG Ipratropium [place] 0.5 mg Q4HPRN PRN NEB 08/13/24 05:00 08/15/24 18:43 0.5 MG Azithromycin 250 ml @ 125 mls/hr Q24H IV 08/13/24 19:00 08/15/24 18:45 125 MLS/HR Sodium Chloride 10 ml Q8HR IV 08/13/24 06:00 08/15/24 21:58 10 ML Acetaminophen 650 mg Q6HP PRN PO 08/13/24 05:00 Ceftriaxone Sodium 50 ml @ 100 mls/hr DAILY@09 IV 08/14/24 10:30 08/15/24 09:20 100 MLS/HR Enoxaparin Sodium 40 mg DAILY SC 08/14/24 10:45 08/15/24 08:44 40 MG Nicotine 1 patch DAILY TD 08/14/24 17:09 08/15/24 08:43 1 PATCH Famotidine 20 mg DAILY PO 08/16/24 10:00 Methylprednisolone Sodium Succinate 40 mg Q8HR IV 08/15/24 22:00 08/15/24 21:58 40 MG Losartan Potassium 100 mg DAILY PO 08/16/24 10:00 objective Gen.: Patient lying in bed in no apparent distress. On room air Head: Normocephalic, atraumatic. Eyes: EOMI/PERRLA. Ears: Normal hearing. Normal anatomy. Neck/trachea: Trachea midline, supple. Nose: Normal external anatomy. Mouth: Moist mucous membranes. Chest: Decreased air entry bilaterally. Stridor. No wheezing or rhonchi. Cardiovascular: Positive S1, positive S2. Regular rate and rhythm. Abdomen: Positive bowel sounds in all 4 quadrants. Soft, non-tender, non- distended. : Deferred. Rectal: Deferred. Skin: Warm, dry. Intact. Extremities: 2+ radial pulses bilaterally. No lower extremity edema. Neuro: Awake, alert, oriented x3. No gross motor or sensory deficits. Cranial nerves II through XII intact. Gait not assessed. laboratory and microbiology Laboratory Tests 08/15/24 05:35 08/14/24 04:37 Test 08/14/24 04:37 Range/Units Serum Glucose 144 H 74-106 mg/dL Assessment/Plan Impression: Acute hypoxic respiratory failure Hypertensive urgency COPD with acute exacerbation Nicotine dependence Events: Currently on room air Supplemental oxygen PRN Improved O2 requirements Stridor noted - gave racemic epinephrine. ABG reviewed, notable for alkalemia On room air, PaO2 of 57.7 mmHg Chest x-ray shows improving bibasilar opacities. Continue bronchodilators Continue IV steroids Continue antibiotics Pepcid for GI prophylaxis NRT Labs and imaging reviewed. Rest of plan as noted below. Plan: Supplemental oxygen PRN Titrate to keep O2 sats above 92%. Continue bronchodilators. Continue antibiotics IV steroids Incentive spirometry Monitor renal function. Monitor electrolytes. Supplement as necessary. Monitor ins and outs. Smoking cessation discussed for greater than 10 minutes DVT prophylaxis. Prognosis: Guarded given patient's multiple co-morbidities. Rest of plan per hospitalist and other consultants. Thank you Dr. Joyner for allowing me to participate in this patient's care. Further recommendations will depend on the patient's clinical course. Please do not hesitate to contact me if you have any questions or concerns. This medical document was created using an electronic medical record system with [employer] system. Although these documentations are being carefully reviewed, there may still be some phonetic and typographical changes. The errors are purely typographical, due to imperfection on the software program, and do not reflect any compromise in the patient's medical care. Plan discussed with: Patient, Other (RN) ETHAN LOONEY MD Aug 15, 2024 22:50
--- NOTE | 2024-08-15 22:57 | DVHSR ---
APPROVED REPORT EXAM: Two-dimensional and M-mode echocardiogram with Doppler and color Doppler. Blood Pressure: 170/118 mmHg INDICATION Rule CHF RISK FACTORS Height: 5'9'', Weight: 157 DIMENSIONS LVDd4.4 (3.8-5.7cm)LA (2D)3.3 (1.9-4.0cm)Aortic Root3.6 (2.0-3.7cm) LVDs2.8 (2.5-4.0cm)LA (MM) (1.9-4.0cm)Aortic Cusp Exc1.9 (1.5-2.0cm) EF (%) 60.0 (55-70%)Rt. Atrium3.5 (1.9-4.0cm)Asc. Aorta cm IVSd1.1 (0.7-1.1cm)RV (D) (1.8-2.4cm) PWd1.1 (0.7-1.1cm) Mitral Valve MitralMitral Stenosis E wave0.59m/sMV Mean GR.mmHg A wave1.01m/sMV Peak GR.mmHg E/A ratio0.62D MVAcm2 DECEL [id number] 1/2 Tim[place] Aortic Valve Aortic ValveAortic Stenosis V10.95m/Benjamin Mean GR.2mmHg V21.05m/Benjamin Peak GR.4mmHg LVOT Diameter2.1 (1.8-2.4cm)Doppler AVA3.13cm2 Other Information Technically limited study due to body habitus. Conclusion LV EJECTION FRACTION IS 65% NORMAL VALVES NO EFFUSION NORMAL RV FUNCTION
[2024-08-16] VITALS (13 sets, daily range): BP systolic 124–145; BP diastolic 88–99; PULSE 66–105; RESP 16–24; TEMP 97.8–98.3; O2SAT 95–99
[2024-08-16 07:19] LABS: Anion Gap 6 (5-15); Chloride 102 mmol/L (98-107); Potassium 4.7 mmol/L (3.5-5.1); Sodium 139 mmol/L (136-145)
[2024-08-16 07:21] LABS: Calcium 9.7 mg/dL (8.7-10.4)
[2024-08-16 07:26] LABS: BUN/Creatinine Ratio 19.5 (10.0-20.0); Basophils # (auto) 0 10 ^3/uL (0-0.2); Basophils % (auto) 0.1 % (0.0-2.0); Eosinophils # (auto) 0 10 ^3/uL (0-0.8); Hemoglobin 14.7 g/dL (13.5-17.5); Monocytes # (auto) 0.6 10 ^3/uL (0-1.3); Neutrophils % (auto) 85.5 % (37.0-80.0); Platelet Count (auto) 527 10^3/uL (140-450); White Blood Cell 10.6 10^3/uL (4.4-10.8)
[2024-08-16 07:29] LABS: Hematocrit 43.1 % (41.0-53.0); Lymphocytes # (auto) 0.9 10 ^3/uL (0.4-5.4); Lymphocytes % (auto) 8.8 % (10.0-50.0); Mean Corpuscular Hemoglobin 30.4 pg (28.0-32.0); Mean Corpuscular Hgb Conc. 34.1 g/dL (32.0-36.0); Mean Corpuscular Volume 89.2 fL (80.0-100.0); Monocytes % (auto) 5.6 % (0.0-12.0); Nucleated Red Blood Cells % 0.1 %; Red Blood Cells 4.83 10^6/uL (4.5-5.90); Red Cell Distribution Width 13.7 % (11.8-14.3)
[2024-08-16 07:30] LABS: Blood Urea Nitrogen 24 mg/dL (9-23); Carbon Dioxide 31 mmol/L (20-31); Glucose 119 mg/dL (74-106)
[2024-08-16 09:12] LABS: Hepatitis B Surface Antigen Negative (Negative)
[2024-08-16 09:33] LABS: Hepatitis C Antibody Negative (Negative)
[2024-08-16] MEDS: FAMOTIDINE 20 MG TAB PO SCH (10:25)
[2024-08-16] MEDS: LOSARTAN POTASSIUM 50 MG TAB PO SCH (10:25)
--- NOTE | 2024-08-16 16:47 | DVHPNRES ---
Progress Note Date Seen: Aug 16, 2024 Resident Creating Document: DEE ADAMS RESIDENT Has the PT tested + for MRSA If YES, has PT been informed?: No Medical Necessity Reason Pt with a Central, PICC or Fol: No Subjective Review of Systems Raf Kessler is a 59-year-old male patient who presents to the ED with chief complain of progressive dyspnea form functional II to functional class IV 3 days before his admission, associated with audible wheezing, chest tightness and dry cough. 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 He was recently in the emergency department with similar symptoms, but left against medical advice. Has medical history: Hypertension, COPD/emphysema no oxygen requirement previously. Surgical history: Denies Family history: Noncontributory Social history: Patient is currently homeless (per patient only family left as a [id number] and grandson). Current tobacco and marijuana abuse (35 pack- year history of smoking). Occasionally drinks alcohol and smokes methamphetamine. Denies current alcohol and other drug abuse. Allergies: Penicillin Home medication: Denies Patient seen and examined at bedside. Currently feels less short of breath, is on oxygen therapy with nasal cannula at 3 liters/minute. Objective vital signs Vital Sign Date Time Temp Pulse Resp B/P (MAP) Pulse Ox O2 Delivery O2 Flow Rate FiO2 08/16/24 13:00 97.9 97 20 124/88 (100) 99 97.9 08/16/24 10:05 Nasal Cannula* 2 28 Total Intake and Output 08/15/24 08/15/24 08/16/24 15:00 23:00 07:00 Intake Total 635 ml 1085 ml 800 ml Output Total 1250 ml 1300 ml Balance 635 ml -165 ml -500 ml medications Current Medications Medications Dose Ordered Sig/Sherine Route Start Time Stop Time Status Last Admin Dose Admin Albuterol 2.5 mg Q4HPRN PRN NEB 08/13/24 05:00 08/15/24 18:43 2.5 MG Ipratropium [place] 0.5 mg Q4HPRN PRN NEB 08/13/24 05:00 08/15/24 18:43 0.5 MG Azithromycin 250 ml @ 125 mls/hr Q24H IV 08/13/24 19:00 08/15/24 18:45 125 MLS/HR Sodium Chloride 10 ml Q8HR IV 08/13/24 06:00 08/16/24 13:34 10 ML Acetaminophen 650 mg Q6HP PRN PO 08/13/24 05:00 Ceftriaxone Sodium 50 ml @ 100 mls/hr DAILY@09 IV 08/14/24 10:30 08/16/24 08:26 100 MLS/HR Enoxaparin Sodium 40 mg DAILY SC 08/14/24 10:45 08/16/24 10:24 40 MG Nicotine 1 patch DAILY TD 08/14/24 17:09 08/16/24 10:25 1 PATCH Famotidine 20 mg DAILY PO 08/16/24 10:00 08/16/24 10:25 20 MG Methylprednisolone Sodium Succinate 40 mg Q8HR IV 08/15/24 22:00 08/16/24 13:31 40 MG Losartan Potassium 100 mg DAILY PO 08/16/24 10:00 08/16/24 10:25 100 MG Examination Patient lying in bed, in no acute distress General: Lucid, afebrile, mucosae are moist Cardiovascular: Normal S1 and S2. No murmurs, gallops or rubs Respiratory: Regular ventilation mechanics. Decreased lung sounds on auscultation, no wheezing or stridor at the moment evaluation Abdomen: Soft, nontender, no organomegaly, normal bowel sounds MSK/skin: Mobilizes 4 limbs. Skin is dry and warm Neurological: Oriented in 3 spheres. No motor no sensitive deficits. Pupils are isocoric and reactive laboratory and microbiology Laboratory Tests 08/16/24 05:45 Test 08/16/24 05:45 Range/Units Serum Glucose 119 H 74-106 mg/dL Problem List/Assessment/Plan Problem List/Assessment/Plan # Acute hypoxic respiratory failure likely due to COPD exacerbation versus possible pneumonia Currently continues with oxygen therapy with nasal cannula at 3 liters/minute. Have ordered home oxygen at this time. Maintain oxygen saturation between 88-92% Pulmonology on board: Presented stridor on 08/15/2024 requiring IM epinephrine and increased dose of IV steroids # Possible atypical pneumonia, Gram-positive versus Gram-negative, rule out viral Patient under empiric IV antibiotic (azithromycin and ceftriaxone) Ordered influenza, COVID, MRSA and sputum culture # COPD exacerbation and Bullous emphysema Patient currently on IV steroids (methylprednisolone 40 mg IV q.8 hours), empiric IV antibiotics, bronchodilators and oxygen therapy Ordered echocardiogram which ruled out pulmonary hypertension (LVEF 65%, normal valves) # Questionable sinusitis vs acute otitis media Continue 2 LT O2, titrate down as tolerated, maintain an oxygen saturation between 88-92% # Leukocytosis, likely reactive due to glucocorticoids Monitor # History of polysubstance abuse Current heavy smoker Counseled on lifestyle modification UDS negative on admission # Hypertension, controlled Losartan 100 mg PO daily Cardiac diet # Prediabetes (hemoglobin A1c 6.2%) Consistent carb diet SSI mild # Homeless Fruit Peeler on board: Planning on sniff placement with oxygen requirement and physical therapy sessions. Patient will require recuperative care. Prophylactic Lovenox Five peptic ulcer disease prophylaxis (famotidine) Goals of care were discussed with patient for over 30 minutes: Full code Case was discussed with Dr. Mora, patient and nurses: Patient yesterday required IM epinephrine in increased in IV steroids. Planning on switching to p.o. steroids and eventually discharging to sniff placement with oxygen requirement (recuperative care will be needed). Patient has poor prognosis. Plan discussed with: Patient Date of Service: Aug 16, 2024 Billing Provider: BRYANT MORA MD Common Visit Codes: [id number] INP/OBS CARE(MOD) DEE ADAMS RESIDENT Aug 16, 2024 16:47 BRYANT MORA MD Aug 18, 2024 15:30
[2024-08-16 19:26] LABS: Rapid Influenza A Negative (Negative); Rapid Influenza B Negative (Negative)
[2024-08-16 19:28] LABS: COVID19 ANTIGEN SOFIA FIA NEGATIVE (NEGATIVE)
--- NOTE | 2024-08-16 19:40 | DVHPN2 ---
Progress Note - Dictate Date Seen: Aug 16, 2024 Has the PT tested + for MRSA If YES, has PT been informed?: No Medical Necessity Reason Pt with a Central, PICC or Fol: No Subjective Patient seen and examined at bedside. On supplemental oxygen Overnight events reviewed. vital signs Vital Sign Date Time Temp Pulse Resp B/P (MAP) Pulse Ox O2 Delivery O2 Flow Rate FiO2 08/16/24 18:16 97 24 97 08/16/24 17:00 98.1 138/90 (106) 98.1 08/16/24 10:05 Nasal Cannula* 2 28 Total Intake and Output 08/15/24 08/15/24 08/16/24 14:59 22:59 06:59 Intake Total 635 ml 1085 ml 800 ml Output Total 1250 ml 1300 ml Balance 635 ml -165 ml -500 ml medications Current Medications Medications Dose Ordered Sig/Sherine Route Start Time Stop Time Status Last Admin Dose Admin Albuterol 2.5 mg Q4HPRN PRN NEB 08/13/24 05:00 08/16/24 18:29 2.5 MG Ipratropium [place] 0.5 mg Q4HPRN PRN NEB 08/13/24 05:00 08/16/24 18:29 0.5 MG Azithromycin 250 ml @ 125 mls/hr Q24H IV 08/13/24 19:00 08/16/24 18:46 125 MLS/HR Sodium Chloride 10 ml Q8HR IV 08/13/24 06:00 08/16/24 13:34 10 ML Acetaminophen 650 mg Q6HP PRN PO 08/13/24 05:00 Ceftriaxone Sodium 50 ml @ 100 mls/hr DAILY@09 IV 08/14/24 10:30 08/16/24 08:26 100 MLS/HR Enoxaparin Sodium 40 mg DAILY SC 08/14/24 10:45 08/16/24 10:24 40 MG Nicotine 1 patch DAILY TD 08/14/24 17:09 08/16/24 10:25 1 PATCH Famotidine 20 mg DAILY PO 08/16/24 10:00 08/16/24 10:25 20 MG Methylprednisolone Sodium Succinate 40 mg Q8HR IV 08/15/24 22:00 08/16/24 13:31 40 MG Losartan Potassium 100 mg DAILY PO 08/16/24 10:00 08/16/24 10:25 100 MG objective Gen.: Patient lying in bed in no apparent distress. On supplemental oxygen Head: Normocephalic, atraumatic. Eyes: EOMI/PERRLA. Ears: Normal hearing. Normal anatomy. Neck/trachea: Trachea midline, supple. Nose: Normal external anatomy. Mouth: Moist mucous membranes. Chest: Decreased air entry bilaterally. No wheezing or rhonchi. Cardiovascular: Positive S1, positive S2. Regular rate and rhythm. Abdomen: Positive bowel sounds in all 4 quadrants. Soft, non-tender, non- distended. : Deferred. Rectal: Deferred. Skin: Warm, dry. Intact. Extremities: 2+ radial pulses bilaterally. No lower extremity edema. Neuro: Awake, alert, oriented x3. No gross motor or sensory deficits. Cranial nerves II through XII intact. Gait not assessed. laboratory and microbiology Laboratory Tests 08/16/24 05:45 Test 08/16/24 05:45 Range/Units Serum Glucose 119 H 74-106 mg/dL Assessment/Plan Impression: Acute hypoxic respiratory failure Hypertensive urgency COPD with acute exacerbation Nicotine dependence Events: Patient desaturated Currently on supplemental oxygen, 5 LPM NC -->3 LPM NC Improving O2 requirements Stridor was noted yesterday - pt was given racemic epinephrine. Continue bronchodilators Continue IV steroids Continue antibiotics Pepcid for GI prophylaxis NRT Labs and imaging reviewed. Rest of plan as noted below. Plan: Supplemental oxygen Titrate to keep O2 sats above 92%. Continue bronchodilators. Continue antibiotics IV steroids Incentive spirometry Monitor renal function. Monitor electrolytes. Supplement as necessary. Monitor ins and outs. NRT DVT prophylaxis. Prognosis: Guarded given patient's multiple co-morbidities. Rest of plan per hospitalist and other consultants. Thank you Dr. Joyner for allowing me to participate in this patient's care. Further recommendations will depend on the patient's clinical course. Please do not hesitate to contact me if you have any questions or concerns. This medical document was created using an electronic medical record system with [employer] system. Although these documentations are being carefully reviewed, there may still be some phonetic and typographical changes. The errors are purely typographical, due to imperfection on the software program, and do not reflect any compromise in the patient's medical care. Plan discussed with: Patient, Other (ETHAN Cortez MD Aug 16, 2024 19:40
[2024-08-17] VITALS (9 sets, daily range): BP systolic 111–145; BP diastolic 65–98; PULSE 58–95; RESP 17–22; TEMP 98.1–98.3; O2SAT 93–100
[2024-08-17 07:07] LABS: Anion Gap 3 (5-15); Chloride 101 mmol/L (98-107); Potassium 4.7 mmol/L (3.5-5.1); Sodium 138 mmol/L (136-145)
[2024-08-17 07:08] LABS: Calcium 10.1 mg/dL (8.7-10.4)
[2024-08-17 07:14] LABS: Blood Urea Nitrogen 27 mg/dL (9-23); Carbon Dioxide 34 mmol/L (20-31); Glucose 135 mg/dL (74-106)
[2024-08-17 07:15] LABS: Eosinophils # (auto) 0 10 ^3/uL (0-0.8); Hemoglobin 15.2 g/dL (13.5-17.5); Mean Corpuscular Hemoglobin 30.2 pg (28.0-32.0); Monocytes # (auto) 0.7 10 ^3/uL (0-1.3); Monocytes % (auto) 5.5 % (0.0-12.0); Red Blood Cells 5.04 10^6/uL (4.5-5.90)
[2024-08-17 07:18] LABS: Basophils # (auto) 0.1 10 ^3/uL (0-0.2); Basophils % (auto) 0.4 % (0.0-2.0); Lymphocytes # (auto) 1.1 10 ^3/uL (0.4-5.4); Lymphocytes % (auto) 8.4 % (10.0-50.0); Mean Corpuscular Hgb Conc. 33.9 g/dL (32.0-36.0); Mean Corpuscular Volume 89.2 fL (80.0-100.0); Neutrophils # (auto) 11.4 10 ^3/uL (1.6-8.6); Neutrophils % (auto) 85.7 % (37.0-80.0); Platelet Count (auto) 525 10^3/uL (140-450); Red Cell Distribution Width 13.4 % (11.8-14.3); White Blood Cell 13.3 10^3/uL (4.4-10.8)
[2024-08-17] MEDS: predniSONE 20 MG TAB PO SCH (10:52)
--- NOTE | 2024-08-17 16:50 | DVHDSRES ---
Discharge Summary Date of Admission Resident Creating Document: DEE ADAMS RESIDENT Aug 13, 2024 at 04:51 Date of Discharge: Aug 17, 2024 Labs/Diagnostic Data: Laboratory Results Test 08/17/24 05:55 08/16/24 17:30 08/15/24 10:30 08/15/24 05:35 White Blood Count 13.3 10^3/uL (4.4-10.8) Red Blood Count 5.04 10^6/uL (4.5-5.90) Hemoglobin 15.2 g/dL (13.5-17.5) Hematocrit 45.0 % (41.0-53.0) Mean Corpuscular Volume 89.2 fL (80.0-100.0) Mean Corpuscular Hemoglobin 30.2 pg (28.0-32.0) Mean Corpuscular Hemoglobin Concent 33.9 g/dL (32.0-36.0) Red Cell Distribution Width 13.4 % (11.8-14.3) Platelet Count 525 10^3/uL (140-450) Mean Platelet Volume 7.1 fL (6.9-10.8) Neutrophils (%) (Auto) 85.7 % (37.0-80.0) Lymphocytes (%) (Auto) 8.4 % (10.0-50.0) Monocytes (%) (Auto) 5.5 % (0.0-12.0) Eosinophils (%) (Auto) 0.0 % (0.0-7.0) Basophils (%) (Auto) 0.4 % (0.0-2.0) Neutrophils # (Auto) 11.4 10 ^3/uL (1.6-8.6) Lymphocytes # (Auto) 1.1 10 ^3/uL (0.4-5.4) Monocytes # (Auto) 0.7 10 ^3/uL (0-1.3) Eosinophils # (Auto) 0 10 ^3/uL (0-0.8) Basophils # (Auto) 0.1 10 ^3/uL (0-0.2) Nucleated Red Blood Cells 0.0 % Sodium Level 138 mmol/L (136-145) Potassium Level 4.7 mmol/L (3.5-5.1) Chloride Level 101 mmol/L (98-107) Carbon Dioxide Level 34 mmol/L (20-31) Anion Gap 3 (5-15) Blood Urea Nitrogen 27 mg/dL (9-23) Creatinine 1.04 mg/dL (0.700-1.30) Glomerular Filtration Rate Calc 83 mL/min (>90) BUN/Creatinine Ratio 26.0 (10.0-20.0) Serum Glucose 135 mg/dL (74-106) Calcium Level 10.1 mg/dL (8.7-10.4) Influenza Type A Antigen Negative (Negative) Influenza Type B Antigen Negative (Negative) SARS-CoV-2 Antigen (Rapid) Negative (NEGATIVE) Blood Gas Specimen Type Arterial Blood Gas Sample Site Right radial Blood Gas Patient Temperature 37.0 Arterial Blood Date Drawn Arterial Blood pH 7.468 (7.350-7.450) Arterial Blood Partial Pressure CO2 35.7 mmHg (35.0-48.0) Arterial Blood Partial Pressure O2 57.7 mmHg (83.0-108.0) Arterial Blood HCO3 25.3 mmol/L (21.0-28.0) Arterial Blood Oxygen Saturation 89.0 % (94.0-98.0) Arterial Blood Base Excess 1.9 mmol/L (-2.0-3.0) Arterial Blood Oxyhemoglobin 88.0 % (94.0-98.0) Arterial Blood Carboxyhemoglobin 0.7 % (0.5-1.5) Arterial Blood Methemoglobin 0.4 % (0.0-1.5) Emir Test Positive Blood Gas Total Hemoglobin 14.90 g/dL (13.5-17.5) Blood Gas Modality Room air FiO2 % 21.0 Hepatitis B Surface Antigen Negative (Negative) Hepatitis C Antibody Negative (Negative) Test 08/14/24 10:21 08/14/24 04:37 08/13/24 16:03 08/12/24 17:43 Urine Color Light-yellow (Yellow) Urine Clarity Clear (Clear) Urine pH 6.0 (5.0-9.0) Urine Specific [place] 1.027 (1.001-1.035) Urine Protein Trace (Negative) Urine Ketones Negative (Negative) Urine Blood Negative /uL (Negative) Urine Nitrite Negative (Negative) Urine Bilirubin Negative (Negative) Urine Urobilinogen Normal mg/dL (Negative) Urine Leukocyte Esterase Negative /uL (Negative) Urine RBC <1 /hpf (0 - 3) Urine Microscopic WBC < 1 /HPF (0-3) Urine Squamous Epithelial Cells None seen /hpf (<5) Urine Bacteria None seen /hpf (None Seen) Urine Glucose Normal mg/dL (Normal) Urine Opiates Screen Neg (NEGATIVE) Urine Fentanyl Screen Neg (NEGATIVE) Urine Barbiturates Screen Neg (NEGATIVE) Urine Phencyclidine Screen Neg (NEGATIVE) Urine Amphetamines Screen Neg (NEGATIVE) Urine Benzodiazepines Screen Neg (NEGATIVE) Urine Cocaine Screen Neg (NEGATIVE) Urine Cannabinoids Screen Neg (NEGATIVE) Total Bilirubin 0.5 mg/dL (0.2-1.0) Aspartate Amino Transferase (AST) 13 U/L (13-40) Alanine Aminotransferase (ALT) 21 U/L (7-40) Alkaline Phosphatase 80 U/L (46-116) Total Protein 7.2 g/dL (5.7-8.2) Albumin 4.6 g/dL (3.2-4.8) Blood Gas Critical Value Read Back yes Blood Gas Notified Whom monico Loo md Blood Gas Notified Time [id number] Blood Gas Notified By Troponin I High Sensitivity 15 ng/L (</=54) Other Laboratory Tests 08/17/24 05:55 Brief Hx & Hospital Course: Raf Kessler is a 59-year-old male patient who presents to the ED with chief complain of progressive dyspnea form functional II to functional class IV 3 days before his admission, associated with audible wheezing, chest tightness and dry cough. He reports previous history of emphysema, but no follow up as outpatient by home care giver. He was recently in the emergency department with similar symptoms, but left against medical advice. Past medical history: Hypertension, COPD/emphysema no oxygen requirement previously. Surgical history: Denies Family history: Noncontributory Social history: Patient is currently homeless (per patient only family left as a [id number] and grandson). Current tobacco and marijuana abuse (35 pack- year history of smoking). Occasionally drinks alcohol and smokes methamphetamine. Denies current alcohol and other drug abuse. Allergies: Penicillin Home medication: Denies Brief hospital course: Acute hypoxic respiratory failure likely due to COPD exacerbation pulse versus possible pneumonia associated with probable acute otitis media, requiring on admission oxygen therapy (maximum nasal cannula at 32%), IV steroids, empiric IV antibiotic (azithromycin and ceftriaxone) and bronchodilators. On admission ruled out COVID and influenza pneumonia. Completed ABG on room air and patient qualifies for home oxygen with nasal cannula 2L/min. Evaluated by pulmonology who optimize medical therapy, and indicated follow up as outpatient. Ordered echocardiogram which ruled out pulmonary hypertension (LVEF 65%, normal valves). Since patient is currently homeless, psychiatric social worker arranging discharge planning to [facility]. He did present strider before discharge requiring IM epinephrine, with is positive response. Patient hemodynamically stable, with requirement of home oxygen nasal cannula at 2 L/min, in condition to be discharged to specialized nursing facility. Was granted under optimal medical therapy, gave advice on healthy lifestyle habits and follow up as outpatient with PCP and home care giver. DIAGNOSIS # Acute hypoxic respiratory failure likely due to COPD exacerbation versus possible pneumonia # Possible atypical pneumonia, Gram-positive versus Gram-negative, rule out viral # COPD exacerbation and Bullous emphysema # Questionable sinusitis vs acute otitis media # Leukocytosis, likely reactive due to glucocorticoids # History of polysubstance abuse # Hypertension, controlled # Prediabetes (hemoglobin A1c 6.2%) # Homeless Goals of care were discussed with patient for over 30 minutes: Full code Case was discussed with Dr. Puckett, patient and nurses. Examination Patient lying in bed, in no acute distress General: Lucid, afebrile, mucosae are moist Cardiovascular: Normal S1 and S2. No murmurs, gallops or rubs Respiratory: Regular ventilation mechanics. Decreased lung sounds on auscultation, no wheezing or stridor at the moment evaluation Abdomen: Soft, nontender, no organomegaly, normal bowel sounds MSK/skin: Mobilizes 4 limbs. Skin is dry and warm Neurological: Oriented in 3 spheres. No motor no sensitive deficits. Pupils are isocoric and reactive Operations or Procedures EXAM: XR Chest, 1 View CLINICAL INDICATION: sob TECHNIQUE: Frontal view of the chest. COMPARISON: XY CHEST PORTABLE on DOS: 08/10/24, XY CHEST PORTABLE on DOS: 10/11/23 FINDINGS: LUNGS AND PLEURAL SPACES: Lung emphysema with bibasilar atelectasis or scarring. Bleb in the left upper lung field. No pneumothorax. HEART: Unremarkable. No cardiomegaly. MEDIASTINUM: Unremarkable. Normal mediastinal contour. BONES/JOINTS: Unremarkable. No acute fracture. OTHER FINDINGS: . . . .. IMPRESSION: Lung emphysema with bibasilar atelectasis or scarring. Bleb in the left upper lung field. ATED BY: JARON BAXTER MD DICTATED DATE/TIME: 08/12/24 4584 EXAM: Two-dimensional and M-mode echocardiogram with Doppler and color Doppler. Blood Pressure: 170/118 mmHg INDICATION Rule CHF RISK FACTORS Height: 5'9'', Weight: 157 DIMENSIONS LVDd 4.4 (3.8-5.7cm) LA (2D) 3.3 (1.9-4.0cm) Aortic Root 3.6 (2.0- 3.7cm) LVDs 2.8 (2.5-4.0cm) LA (MM) (1.9-4.0cm) Aortic Cusp Exc 1.9 (1.5- 2.0cm) EF (%) 60.0 (55-70%) Rt. Atrium 3.5 (1.9-4.0cm) Asc. Aorta cm IVSd 1.1 (0.7-1.1cm) RV (D) (1.8-2.4cm) PWd 1.1 (0.7-1.1cm) Mitral Valve Mitral Mitral Stenosis E wave 0.59m/s MV Mean GR. mmHg A wave 1.01m/s MV Peak GR. mmHg E/A ratio 0.6 2D MVA cm2 DECEL Time 334ms PRESS 1/2 Time ms Aortic Valve Aortic Valve Aortic Stenosis V1 0.95m/s AO Mean GR. 2mmHg V2 1.05m/s AO Peak GR. 4mmHg LVOT Diameter 2.1 (1.8-2.4cm) Doppler OZIEL 3.13cm2 Other Information Technically limited study due to body habitus. Conclusion LV EJECTION FRACTION IS 65% NORMAL VALVES NO EFFUSION NORMAL RV FUNCTION SIGNED BY: CASTRO NEWTON MD SIGNED DATE/TIME: 08/15/24 3755 Condition at Discharge: Fair Final Diagnosis/Problems List # Acute hypoxic respiratory failure likely due to COPD exacerbation versus possible pneumonia # Possible atypical pneumonia, Gram-positive versus Gram-negative, rule out viral # COPD exacerbation and Bullous emphysema # Questionable sinusitis vs acute otitis media # Leukocytosis, likely reactive due to glucocorticoids # History of polysubstance abuse # Hypertension, controlled # Prediabetes (hemoglobin A1c 6.2%) # Homeless Discharge Disposition: [facility] SN[facility] Discharge Will this Physician continue t: No Discharge Instruct/Medications Diet: Cardiac 2g Na,low cholest Activity: No Restrictions, As Tolerated Follow Up/Referral: PCP Pulmonology Medications: Per EMR Discharge Statement: "Patient was advised to return to the ER or call 911 if any headaches, dizziness, shortness of breath, chest pain, abdominal pain, bleeding, fevers, or worsening of medical condition. Patient was counseled about treatment plan, medications, possible side effects, patientverbalized understanding. All questions were answered to the best of my ability. This discharge took greater then 30 minutes in planning, reviewing documentation, counseling the patient, and discussing with other team members." ASSESSMENT ASSESSMENT Assessment Acute respiratory failure secondary to COPD exacerbation vs pneumonia Date of Service: Aug 17, 2024 Billing Provider: BRYANT PUCKETT MD Common Visit Codes: [id number]/[id number] DISCH DAY >30min DEE ADAMS RESIDENT Aug 17, 2024 16:50 BRYANT PUCKETT MD Aug 18, 2024 15:44
--- NOTE | 2024-08-17 21:02 | DVHPN2 ---
Progress Note - Dictate Date Seen: Aug 17, 2024 Has the PT tested + for MRSA If YES, has PT been informed?: No Medical Necessity Reason Pt with a Central, PICC or Fol: No Subjective Patient seen and examined at bedside. On supplemental oxygen Overnight events reviewed. vital signs Vital Sign Date Time Temp Pulse Resp B/P (MAP) Pulse Ox O2 Delivery O2 Flow Rate FiO2 08/17/24 20:56 98.2 58 17 126/98 (107) 96 98.2 08/17/24 10:00 Nasal Cannula 3.0 08/17/24 10:00 32 Total Intake and Output 08/16/24 08/16/24 08/17/24 15:00 23:00 07:00 Intake Total 300 ml 950 ml 350 ml Output Total 1190 ml Balance 300 ml 950 ml -840 ml medications Current Medications Medications Dose Ordered Sig/Sherine Route Start Time Stop Time Status Last Admin Dose Admin Albuterol 2.5 mg Q4HPRN PRN NEB 08/13/24 05:00 08/16/24 18:29 2.5 MG Ipratropium [place] 0.5 mg Q4HPRN PRN NEB 08/13/24 05:00 08/16/24 18:29 0.5 MG Azithromycin 250 ml @ 125 mls/hr Q24H IV 08/13/24 19:00 08/17/24 18:36 125 MLS/HR Sodium Chloride 10 ml Q8HR IV 08/13/24 06:00 08/17/24 14:51 10 ML Acetaminophen 650 mg Q6HP PRN PO 08/13/24 05:00 Ceftriaxone Sodium 50 ml @ 100 mls/hr DAILY@09 IV 08/14/24 10:30 08/17/24 10:53 100 MLS/HR Enoxaparin Sodium 40 mg DAILY SC 08/14/24 10:45 08/17/24 10:53 40 MG Nicotine 1 patch DAILY TD 08/14/24 17:09 08/17/24 11:04 1 PATCH Famotidine 20 mg DAILY PO 08/16/24 10:00 08/17/24 10:52 20 MG Losartan Potassium 100 mg DAILY PO 08/16/24 10:00 08/17/24 10:52 100 MG Prednisone 40 mg BID PO 08/17/24 10:00 08/17/24 10:52 40 MG objective Gen.: Patient lying in bed in no apparent distress. On supplemental oxygen Head: Normocephalic, atraumatic. Eyes: EOMI/PERRLA. Ears: Normal hearing. Normal anatomy. Neck/trachea: Trachea midline, supple. Nose: Normal external anatomy. Mouth: Moist mucous membranes. Chest: Decreased air entry bilaterally. No wheezing or rhonchi. Cardiovascular: Positive S1, positive S2. Regular rate and rhythm. Abdomen: Positive bowel sounds in all 4 quadrants. Soft, non-tender, non- distended. : Deferred. Rectal: Deferred. Skin: Warm, dry. Intact. Extremities: 2+ radial pulses bilaterally. No lower extremity edema. Neuro: Awake, alert, oriented x3. No gross motor or sensory deficits. Cranial nerves II through XII intact. Gait not assessed. laboratory and microbiology Laboratory Tests 08/17/24 05:55 Test 08/17/24 05:55 Range/Units Serum Glucose 135 H 74-106 mg/dL Assessment/Plan Impression: Acute hypoxic respiratory failure Hypertensive urgency COPD with acute exacerbation Nicotine dependence Events: Remains on supplemental oxygen 3 LPM NC Taper O2 as tolerated Stridor was noted yesterday - pt was given racemic epinephrine. Continue bronchodilators Continue steroids PO prednisone Continue antibiotics Pepcid for GI prophylaxis NRT Plan for SNF placement Labs and imaging reviewed. Rest of plan as noted below. Plan: Supplemental oxygen Titrate to keep O2 sats above 92%. Continue bronchodilators. Continue antibiotics Continue steroids Incentive spirometry Monitor renal function. Monitor electrolytes. Supplement as necessary. Monitor ins and outs. NRT DVT prophylaxis. Prognosis: Guarded given patient's multiple co-morbidities. Rest of plan per hospitalist and other consultants. Thank you Dr. Joyner for allowing me to participate in this patient's care. Further recommendations will depend on the patient's clinical course. Please do not hesitate to contact me if you have any questions or concerns. This medical document was created using an electronic medical record system with [employer] dictation system. Although these documentations are being carefully reviewed, there may still be some phonetic and typographical changes. The errors are purely typographical, due to imperfection on the software program, and do not reflect any compromise in the patient's medical care. Plan discussed with: Patient, Other (VANDANA Vance) ETHAN LOONEY MD Aug 17, 2024 21:02
[2024-08-18] VITALS (10 sets, daily range): BP systolic 125–142; BP diastolic 67–81; PULSE 64–106; RESP 17–18; TEMP 98.1–98.6; O2SAT 95–100
[2024-08-18] MEDS: levoFLOXacin 500 MG TAB PO SCH (09:11)
--- NOTE | 2024-08-18 14:21 | DVHPNRES ---
Progress Note Date Seen: Aug 18, 2024 Resident Creating Document: DEE ADAMS RESIDENT Has the PT tested + for MRSA If YES, has PT been informed?: No Medical Necessity Reason Pt with a Central, PICC or Fol: No Subjective Review of Systems Raf Kessler is a 59-year-old male patient who presents to the ED with chief complain of progressive dyspnea form functional II to functional class IV 3 days before his admission, associated with audible wheezing, chest tightness and dry cough. 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 He was recently in the emergency department with similar symptoms, but left against medical advice. Has medical history: Hypertension, COPD/emphysema no oxygen requirement previously. Surgical history: Denies Family history: Noncontributory Social history: Patient is currently homeless (per patient only family left as a [id number] and grandson). Current tobacco and marijuana abuse (35 pack- year history of smoking). Occasionally drinks alcohol and smokes methamphetamine. Denies current alcohol and other drug abuse. Allergies: Penicillin Home medication: Denies Patient seen and examined at bedside. Currently feels less short of breath, is on oxygen therapy with nasal cannula at 3 liters/minute. Awaiting bed in SNF. Objective vital signs Vital Sign Date Time Temp Pulse Resp B/P (MAP) Pulse Ox O2 Delivery O2 Flow Rate FiO2 08/18/24 09:48 99 Nasal Cannula* 2 28 08/18/24 08:39 131/67 08/18/24 08:00 64 18 08/18/24 05:00 98.3 98.3 Total Intake and Output 08/17/24 08/17/24 08/18/24 15:00 23:00 07:00 Intake Total 50 ml 675 ml 500 ml Balance 50 ml 675 ml 500 ml medications Current Medications Medications Dose Ordered Sig/Sherine Route Start Time Stop Time Status Last Admin Dose Admin Albuterol 2.5 mg Q4HPRN PRN NEB 08/13/24 05:00 08/16/24 18:29 2.5 MG Ipratropium [place] 0.5 mg Q4HPRN PRN NEB 08/13/24 05:00 08/16/24 18:29 0.5 MG Sodium Chloride 10 ml Q8HR IV 08/13/24 06:00 08/18/24 09:11 10 ML Acetaminophen 650 mg Q6HP PRN PO 08/13/24 05:00 Enoxaparin Sodium 40 mg DAILY SC 08/14/24 10:45 08/18/24 08:44 40 MG Nicotine 1 patch DAILY TD 08/14/24 17:09 08/18/24 08:43 1 PATCH Famotidine 20 mg DAILY PO 08/16/24 10:00 08/18/24 08:40 20 MG Losartan Potassium 100 mg DAILY PO 08/16/24 10:00 08/18/24 08:39 100 MG Prednisone 40 mg BID PO 08/17/24 10:00 08/18/24 08:40 40 MG Levofloxacin 500 mg DAILY PO 08/18/24 10:00 08/18/24 09:11 500 MG Examination Patient lying in bed, in no acute distress General: Lucid, afebrile, mucosae are moist Cardiovascular: Normal S1 and S2. No murmurs, gallops or rubs Respiratory: Regular ventilation mechanics. Decreased lung sounds on auscultation, no wheezing or stridor at the moment evaluation Abdomen: Soft, nontender, no organomegaly, normal bowel sounds MSK/skin: Mobilizes 4 limbs. Skin is dry and warm Neurological: Oriented in 3 spheres. No motor no sensitive deficits. Pupils are isocoric and reactive laboratory and microbiology Laboratory Tests 08/17/24 05:55 Test 08/17/24 05:55 Range/Units Serum Glucose 135 H 74-106 mg/dL Microbiology Date/Time Source Procedure Growth Status 08/16/24 18:50 Sputum Gram Stain - Final Resulted 08/16/24 18:50 Sputum Respiratory Culture - Preliminary Resulted 08/16/24 17:10 Nose MRSA Screen - Final Methicillin Resistant S.aureus Complete Problem List/Assessment/Plan Problem List/Assessment/Plan # Acute hypoxic respiratory failure likely due to COPD exacerbation versus possible pneumonia Currently continues with oxygen therapy with nasal cannula at 3 liters/minute. Have ordered home oxygen at this time. Maintain oxygen saturation between 88-92% Pulmonology on board: Presented stridor on 08/15/2024 requiring IM epinephrine and increased dose of IV steroids. Currently on PO steroids # Possible atypical pneumonia, Gram-positive versus Gram-negative, rule out viral Patient under empiric PO Ordered influenza, COVID, MRSA and sputum culture # COPD exacerbation and Bullous emphysema Patient currently on PO steroids (Prednisoe 40mg q.12 hours), empiric PO antibiotics, bronchodilators and oxygen therapy Ordered echocardiogram which ruled out pulmonary hypertension (LVEF 65%, normal valves) # Questionable sinusitis vs acute otitis media Continue 2 LT O2, titrate down as tolerated, maintain an oxygen saturation between 88-92% # Leukocytosis, likely reactive due to glucocorticoids Monitor # History of polysubstance abuse Current heavy smoker Counseled on lifestyle modification UDS negative on admission Currently on Nicotine patches # Hypertension, controlled Losartan 100 mg PO daily Cardiac diet # Prediabetes (hemoglobin A1c 6.2%) Consistent carb diet SSI mild # Homeless Contract Negotiator on board: Planning on SNF placement with oxygen requirement and physical therapy sessions. Patient will require recuperative care. Prophylactic Lovenox Peptic ulcer disease prophylaxis (famotidine) Goals of care were discussed with patient for over 30 minutes: Full code Case was discussed with Dr. Mora, patient and nurses: Patient currently on p.o. antibiotics and p.o. steroids. Awaiting bed availability for recuperative care (center that accepts home oxygen and for physical therapy). Plan discussed with: Patient, Other (Nurses) My Orders My Orders Orders - DEE ADAMS RESIDENT Procedure Category Date Status Time Discontinue Tele AROLDO 08/17/24 In Process 16:41 Transfer Orders XFER 08/17/24 Transmitted 16:41 Levofloxacin Tablet PHA 08/18/24 In Process (Levaquin Tablet) 10:00 Dietary Evaluation Review Comments: Avoid smoking and drug use. Encourage and monitor PO intake to meet at least 75% of his needs Expected Outcomes/Goals: grdual weight gain, controlled blood glucose, improved overall nutrition health. Date of Service: Aug 18, 2024 Billing Provider: BRYANT MORA MD Common Visit Codes: [id number] INP/OBS CARE(MOD) DEE ADAMS RESIDENT Aug 18, 2024 14:21 BRYANT MORA MD Aug 18, 2024 15:54
[2024-08-19] VITALS (10 sets, daily range): BP systolic 132–153; BP diastolic 87–107; PULSE 71–97; RESP 16–19; TEMP 97.8–98.5; O2SAT 94–100
--- NOTE | 2024-08-19 10:58 | DVHPNRES ---
Progress Note Date Seen: Aug 19, 2024 Resident Creating Document: DEE ADAMS RESIDENT Has the PT tested + for MRSA If YES, has PT been informed?: No Medical Necessity Reason Pt with a Central, PICC or Fol: No Subjective Review of Systems Raf Kessler is a 59-year-old male patient who presents to the ED with chief complain of progressive dyspnea form functional II to functional class IV 3 days before his admission, associated with audible wheezing, chest tightness and dry cough. He reports previous history of emphysema, but no follow up as outpatient by program admin. He was recently in the emergency department with similar symptoms, but left against medical advice. Has medical history: Hypertension, COPD/emphysema no oxygen requirement previously. Surgical history: Denies Family history: Noncontributory Social history: Patient is currently homeless (per patient only family left as a [id number] and grandson). Current tobacco and marijuana abuse (35 pack- year history of smoking). Occasionally drinks alcohol and smokes methamphetamine. Denies current alcohol and other drug abuse. Allergies: Penicillin Home medication: Denies Patient seen and examined at bedside. Currently feels less short of breath, is on oxygen therapy with nasal cannula at 3 liters/minute. Awaiting bed in SNF. Objective vital signs Vital Sign Date Time Temp Pulse Resp B/P (MAP) Pulse Ox O2 Delivery O2 Flow Rate FiO2 08/19/24 09:50 96 Nasal Cannula 3.0 08/19/24 09:50 32 08/19/24 09:00 97.9 87 19 144/96 (112) 97.9 Total Intake and Output 08/18/24 08/18/24 08/19/24 15:00 23:00 07:00 Intake Total 400 ml 500 ml Balance 400 ml 500 ml medications Current Medications Medications Dose Ordered Sig/Sherine Route Start Time Stop Time Status Last Admin Dose Admin Albuterol 2.5 mg Q4HPRN PRN NEB 08/13/24 05:00 08/18/24 18:44 2.5 MG Ipratropium [place] 0.5 mg Q4HPRN PRN NEB 08/13/24 05:00 08/18/24 18:44 0.5 MG Sodium Chloride 10 ml Q8HR IV 08/13/24 06:00 08/19/24 08:16 10 ML Acetaminophen 650 mg Q6HP PRN PO 08/13/24 05:00 Enoxaparin Sodium 40 mg DAILY SC 08/14/24 10:45 08/19/24 08:07 40 MG Nicotine 1 patch DAILY TD 08/14/24 17:09 08/19/24 08:16 1 PATCH Famotidine 20 mg DAILY PO 08/16/24 10:00 08/19/24 08:07 20 MG Losartan Potassium 100 mg DAILY PO 08/16/24 10:00 08/19/24 08:08 100 MG Prednisone 40 mg BID PO 08/17/24 10:00 08/19/24 08:08 40 MG Levofloxacin 500 mg DAILY PO 08/18/24 10:00 08/19/24 08:07 500 MG Examination Patient lying in bed, in no acute distress General: Lucid, afebrile, mucosae are moist Cardiovascular: Normal S1 and S2. No murmurs, gallops or rubs Respiratory: Regular ventilation mechanics. Decreased lung sounds on auscultation, no wheezing or stridor at the moment evaluation Abdomen: Soft, nontender, no organomegaly, normal bowel sounds MSK/skin: Mobilizes 4 limbs. Skin is dry and warm Neurological: Oriented in 3 spheres. No motor no sensitive deficits. Pupils are isocoric and reactive laboratory and microbiology Laboratory Tests 08/17/24 05:55 Test 08/17/24 05:55 Range/Units Serum Glucose 135 H 74-106 mg/dL Microbiology Date/Time Source Procedure Growth Status 08/16/24 18:50 Sputum Gram Stain - Final Resulted 08/16/24 18:50 Sputum Respiratory Culture - Preliminary Resulted 08/16/24 17:10 Nose MRSA Screen - Final Methicillin Resistant S.aureus Complete Problem List/Assessment/Plan Problem List/Assessment/Plan # Acute hypoxic respiratory failure likely due to COPD exacerbation versus possible pneumonia Currently continues with oxygen therapy with nasal cannula at 3 liters/minute. Have ordered home oxygen at this time. Maintain oxygen saturation between 88-92% Pulmonology on board: Presented stridor on 08/15/2024 requiring IM epinephrine and increased dose of IV steroids. Currently on PO steroids # Possible atypical pneumonia, Gram-positive versus Gram-negative, rule out viral Patient under empiric PO Ordered influenza, COVID, MRSA and sputum culture # COPD exacerbation and Bullous emphysema Patient currently on PO steroids (Prednisoe 40mg daily), empiric PO antibiotics, bronchodilators and oxygen therapy Ordered echocardiogram which ruled out pulmonary hypertension (LVEF 65%, normal valves) # Questionable sinusitis vs acute otitis media Continue 2 LT O2, titrate down as tolerated, maintain an oxygen saturation between 88-92% # Leukocytosis, likely reactive due to glucocorticoids Monitor # History of polysubstance abuse Current heavy smoker Counseled on lifestyle modification UDS negative on admission Currently on Nicotine patches # Hypertension, controlled Losartan 100 mg PO daily Cardiac diet # Prediabetes (hemoglobin A1c 6.2%) Consistent carb diet SSI mild # Homeless Chuck Wagon Driver on board: Planning on SNF placement with oxygen requirement and physical therapy sessions. Patient will require recuperative care. Prophylactic Lovenox Peptic ulcer disease prophylaxis (famotidine) Goals of care were discussed with patient for over 30 minutes: Full code Case was discussed with Dr. Mora, patient and nurses: Patient currently on p.o. antibiotics and p.o. steroids. Awaiting bed availability for recuperative care (center that accepts home oxygen and for physical therapy). Plan discussed with: Patient, Other (Nurses) Dietary Evaluation Review Comments: Avoid smoking and drug use. Encourage and monitor PO intake to meet at least 75% of his needs Expected Outcomes/Goals: grdual weight gain, controlled blood glucose, improved overall nutrition health. Date of Service: Aug 19, 2024 Billing Provider: BRYANT MORA MD Common Visit Codes: [id number] INP/OBS CARE(MOD) DEE ADAMS RESIDENT Aug 19, 2024 10:58 BRYANT MORA MD Aug 19, 2024 20:43
[2024-08-19] MEDS ORDERED: LOSA-534 PO (17:59)
[2024-08-19] MEDS ORDERED: LEVO500T91 PO (17:59)
[2024-08-19] MEDS ORDERED: METH4PAK PO (17:59)
[2024-08-19] MEDS ORDERED: ACET-1882 PO (17:59)
[2024-08-19] MEDS ORDERED: FAMO-12 PO (17:59)
[2024-08-19] MEDS ORDERED: ALB5IS NEB (17:59)
[2024-08-19] MEDS ORDERED: IPR002IS NEB (17:59)
--- NOTE | 2024-08-19 23:08 | DVHPN2 ---
Progress Note - Dictate Date Seen: Aug 19, 2024 Has the PT tested + for MRSA If YES, has PT been informed?: No Medical Necessity Reason Pt with a Central, PICC or Fol: No Subjective Patient seen and examined at bedside. On supplemental oxygen Overnight events reviewed. vital signs Vital Sign Date Time Temp Pulse Resp B/P (MAP) Pulse Ox O2 Delivery O2 Flow Rate FiO2 08/19/24 17:37 98.5 86 16 94 08/19/24 13:00 148/93 (111) 08/19/24 11:33 Nasal Cannula* 2 28 Total Intake and Output 08/18/24 08/18/24 08/19/24 15:00 23:00 07:00 Intake Total 400 ml 500 ml Balance 400 ml 500 ml objective Gen.: Patient lying in bed in no apparent distress. On supplemental oxygen Head: Normocephalic, atraumatic. Eyes: EOMI/PERRLA. Ears: Normal hearing. Normal anatomy. Neck/trachea: Trachea midline, supple. Nose: Normal external anatomy. Mouth: Moist mucous membranes. Chest: Decreased air entry bilaterally. No wheezing or rhonchi. Cardiovascular: Positive S1, positive S2. Regular rate and rhythm. Abdomen: Positive bowel sounds in all 4 quadrants. Soft, non-tender, non- distended. : Deferred. Rectal: Deferred. Skin: Warm, dry. Intact. Extremities: 2+ radial pulses bilaterally. No lower extremity edema. Neuro: Awake, alert, oriented x3. No gross motor or sensory deficits. Cranial nerves II through XII intact. Gait not assessed. laboratory and microbiology Laboratory Tests 08/17/24 05:55 Test 08/17/24 05:55 Range/Units Serum Glucose 135 H 74-106 mg/dL Assessment/Plan Impression: Acute hypoxic respiratory failure Hypertensive urgency COPD with acute exacerbation Nicotine dependence Events: Remains on supplemental oxygen 2 LPM NC Taper O2 as tolerated Continue bronchodilators Continue steroids PO prednisone Continue antibiotics Pepcid for GI prophylaxis NRT Awaiting SNF placement Labs and imaging reviewed. Rest of plan as noted below. Plan: Supplemental oxygen Titrate to keep O2 sats above 92%. Continue bronchodilators. Continue antibiotics Continue steroids Incentive spirometry Monitor renal function. Monitor electrolytes. Supplement as necessary. Monitor ins and outs. NRT DVT prophylaxis. Prognosis: Guarded given patient's multiple co-morbidities. Rest of plan per hospitalist and other consultants. Thank you Dr. Joyner for allowing me to participate in this patient's care. Further recommendations will depend on the patient's clinical course. Please do not hesitate to contact me if you have any questions or concerns. This medical document was created using an electronic medical record system with [employer] dictation system. Although these documentations are being carefully reviewed, there may still be some phonetic and typographical changes. The errors are purely typographical, due to imperfection on the software program, and do not reflect any compromise in the patient's medical care. Dietary Evaluation Review Comments: Avoid smoking and drug use. Encourage and monitor PO intake to meet at least 75% of his needs Expected Outcomes/Goals: grdual weight gain, controlled blood glucose, improved overall nutrition health. Plan discussed with: Patient, Spouse, Other (RN Ty) ETHAN LOONEY MD Aug 19, 2024 23:07
[2024-08-20] MEDS ORDERED: predniSONE 20 MG TAB PO SCH (10:00)
== END 2024-08-19 20:43 | disposition home health service (06) | DRG 140 ==
LOC: ER 16:36 → TELE 08-13 04:51 → TELE-CENTR 08-14 22:06 → OVERFLOW 08-17 14:39 → CENTRAL 08-17 14:48
PROVIDERS: ADMIT Student in an Organized Health Care Education/Training Program; ATTEND Student in an Organized Health Care Education/Training Program
DX: J44.1 Chronic obstructive pulmonary disease with (acute) exacerbation (principal); J96.01 Acute respiratory failure with hypoxia; Z99.81 Dependence on supplemental oxygen; Z20.822 Contact with and (suspected) exposure to COVID-19; I16.0 Hypertensive urgency; F17.210 Nicotine dependence, cigarettes, uncomplicated; J43.9 Emphysema, unspecified; D72.829 Elevated white blood cell count, unspecified; J98.4 Other disorders of lung; I10 Essential (primary) hypertension; R73.03 Prediabetes; Z53.29 Procedure and treatment not carried out because of patient's decision for other reasons; Z88.0 Allergy status to penicillin; Z75.1 Person awaiting admission to adequate facility elsewhere; Z79.899 Other long term (current) drug therapy; Z59.00 Homelessness unspecified
CPT/HCPCS: 36415; 36600; 71045; 80048; 80053; 80307; 81001; 82805; 84484; 85025; 86803; 87070; 87081; 87205; 87340; 87426; 87804; 93306; 94640; 96365; 96368; 96375; 99291; 99292; G0378; J3490

== ENCOUNTER 2024-11-26 15:46 | Emergency (ER) | payer MEDICAID ==
[~2024-11-26] VITALS: Ht 175.3 cm; Wt 72.7 kg
[~2024-11-26 15:46] MED LIST changes: +ACET-1882 PO; +ALB5IS NEB; -AZIT500T66 PO; +FAMO-12 PO; +IPR002IS NEB; +LOSA-534 PO; +METH4PAK PO; -PROM1SOL4 PO
--- NOTE | 2024-11-26 15:56 | ED.PDOC ---
SOB-HPI HPI Comments HPI: Poor Historian. 59-year-old male brought in by ambulance from a friend's house. Patient is homeless. Chief complaint is shortness of breath for two weeks. 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 He said he is supposed to be on hypertension medications. Has history of emphysema. Patient has not been taking any of his medicines. Per EMS pre- hospital course vital signs were stable. Patient presents in no acute distress. Past Medical History: Emphysema, hypertension Past Surgical History: Ear surgery REVIEW OF SYSTEMS: CONSTITUTIONAL: Denies acute: fever, diaphoresis, chills, generalized weakness. HEAD: Denies acute: headache, photophobia Eyes: Denies acute: Double vision, vision loss, eye pain, eye discharge. EARS: Denies acute: tinnitus, hearing loss, ear discharge, ear pain, THROAT: Denies acute: sore throat, swelling, difficulty swallowing , pain with swallowing, change in voice. NECK: Denies acute: neck pain, neck swelling, stiff neck. HEART: Denies acute : chest pain, palpitations, LUNGS: Denies acute: wheezing, cough, hemoptysis ABDOMEN: Denies acute: abdominal pain, Nausea, Vomiting, diarrhea, melena , hematemesis, hematochezia SKIN: Denies acute: rash, redness, lesions, itchiness. EXTREMITIES: Denies acute: calf pain, numbness, tingling, weakness, denies pain in extremity. Denies acute: Low back pain. Neuro: Denies acute: focal neurological deficit, motor or sensory focal neurological deficit, tremors, seizure like activity, confusion, dizziness, change in mental status, loss of bowel or bladder function, cauda equina like symptoms. : Denies acute: dysuria, hematuria, flank pain, increase in urinary frequency. PSYCH: Denies acute: hallucination, suicidal ideation, homicidal ideation. PHYSICAL EXAM: General: ----no----acute distress, awake and alert. Head: normocephalic, atraumatic. Neck: supple, trachea is midline, no swelling. Throat: Normal phonation. Eyes:, no erythema, no purulent discharge, no proptosis, no icterus. Heart: regular rate, regular rhythm, no significant murmur appreciated. Lungs: no apparent respiratory distress, Able to speak in full sentences. No wheezing, no rhonchi, no crackles. No stridors Clear to auscultation bilaterally. Abdomen: non tender to palpation, non distended, soft, no guarding, no rebound, + bowel sounds. Neuro: Awake, Alert, oriented to name, self, situation, follows commands GCS=15. Speech is normal. Skin: no petechia, no purpura, no cyanosis, non-pale, not jaundice. Lower extremities: --no - Pitting edema no deformity, no focal swelling, no calf TTP. Makes eye contact. moves all four extremities. Face: no apparent facial droop. Ambulating in the ED independently. ED COURSE: Chief Complaint: Shortness of Breath Time Seen by MD: 15:50 Primary Care Provider: NONE Reviewed notes: Nurses Notes, Allergies Information Source: Patient, Emergency Med Personnel Past Medical History PAST MEDICAL HISTORY: COPD Surgical History: Denies all surgeries Family History Family History: Reviewed,noncontributory to illness Social History Smoker: Cigarettes Alcohol: Denies ETOH Use Drugs: Denies Drug Use Lives In: Home Was a procedure done? Was a procedure done?: No Differential Dx Differential Diagnosis: Other (DDx include ACS, unstable angina, anxiety, PE, pneumothroax, neoplasm, cardiac ischemia, COPD, asthma, CHF, pleural effusion, tobacco abuse, pneumonia, hypoxia, hypercapnia, anemia., infection/sepsis., pulmonary edema. Asthma, Cardiac tamponade, infection.) X-Ray, Labs, Meds, VS Vital Signs Date Time Temp Pulse Resp B/P (MAP) Pulse Ox O2 Delivery O2 Flow Rate FiO2 11/26/24 16:45 97.7 95 18 146/114 (125) 95 97.7 11/26/24 16:45 Room Air* 0 21 11/26/24 16:05 16 98 Room Air* 0 21 11/26/24 15:57 97.7 90 16 170/100 (123) 98 97.7 Lab Test 11/26/24 16:43 11/26/24 16:42 Range/Units Lactic Acid Level 1.1 0.4-2.0 mmol/L White Blood Count 7.5 4.4-10.8 10^3/uL Red Blood Count 5.16 4.5-5.90 10^6/uL Hemoglobin 15.2 13.5-17.5 g/dL Hematocrit 45.1 41.0-53.0 % Mean Corpuscular Volume 87.4 80.0-100.0 fL Mean Corpuscular Hemoglobin 29.5 28.0-32.0 pg Mean Corpuscular Hemoglobin Concent 33.7 32.0-36.0 g/dL Red Cell Distribution Width 14.7 H 11.8-14.3 % Platelet Count 258 140-450 10^3/uL Mean Platelet Volume 6.9 6.9-10.8 fL Neutrophils (%) (Auto) 59.4 37.0-80.0 % Lymphocytes (%) (Auto) 26.1 10.0-50.0 % Monocytes (%) (Auto) 8.2 0.0-12.0 % Eosinophils (%) (Auto) 5.1 0.0-7.0 % Basophils (%) (Auto) 1.2 0.0-2.0 % Neutrophils # (Auto) 4.5 1.6-8.6 10 ^3/uL Lymphocytes # (Auto) 2.0 0.4-5.4 10 ^3/uL Monocytes # (Auto) 0.6 0-1.3 10 ^3/uL Eosinophils # (Auto) 0.4 0-0.8 10 ^3/uL Basophils # (Auto) 0.1 0-0.2 10 ^3/uL Nucleated Red Blood Cells 0.1 % Sodium Level 140 136-145 mmol/L Potassium Level 3.7 3.5-5.1 mmol/L Chloride Level 103 98-107 mmol/L Carbon Dioxide Level 28 20-31 mmol/L Anion Gap 9 5-15 Blood Urea Nitrogen 22 9-23 mg/dL Creatinine 1.28 0.700-1.30 mg/dL Glomerular Filtration Rate Calc 64 >90 mL/min BUN/Creatinine Ratio 17.2 10.0-20.0 Serum Glucose 97 74-106 mg/dL Calcium Level 10.0 8.7-10.4 mg/dL Magnesium Level 2.0 1.6-2.6 mg/dL Total Bilirubin 0.2 0.2-1.0 mg/dL Aspartate Amino Transferase (AST) 12 L 13-40 U/L Alanine Aminotransferase (ALT) 11 7-40 U/L Alkaline Phosphatase 73 46-116 U/L Troponin I High Sensitivity 17 </=54 ng/L B-Type Natriuretic Peptide 11.44 0-100 pg/mL Total Protein 6.4 5.7-8.2 g/dL Albumin 4.2 3.2-4.8 g/dL Current Medications Medications (Trade) Dose Ordered Sig/Sheirne Route Start Time Stop Time Status Last Admin Albuterol (Ventolin Medneb) 2.5 mg ONCE ONCE NEB 11/26/24 16:00 11/26/24 16:01 DC 11/26/24 16:22 Ipratropium [place] (Atrovent Medneb) 1 mg ONCE ONCE NEB 11/26/24 16:00 11/26/24 16:01 DC 11/26/24 16:22 Methylprednisolone Sodium Succinate (Solu Medrol) 125 mg ONCE ONCE IM 11/26/24 16:00 11/26/24 16:01 DC 11/26/24 16:29 [place] [id number] Ph: [phone] DIAGNOSTIC IMAGING Diagnostic Imaging Report : [id number] Signed PATIENT: ROBERTO PEGUEROCCT: [id number] UNIT: [id number] : 1965 LOC: ER ROOM / BED: / AGE / SEX: 59 / M ADM STATUS: REG ER SERVICE 1552 ORDERING PHYSICIAN: TURNER MATA DO PROCEDURE(s): CXRP - CHEST PORTABLE REASON: sob ORDER NUMBER(s): [id number], ACCESSION NUMBER(s): [id number] CHEST RADIOGRAPH Indication: sob Technique: Single frontal view of the chest was obtained Comparison: XY CHEST XRAY 1 VIEW on DOS: 08/15/24, XY CHEST PORTABLE on DOS: 08/12/24, XY CHEST PORTABLE on DOS: 08/10/24 FINDINGS: Lines and Tubes: None Lungs: Severe emphysematous changes bilaterally. Pleura: No effusion. No pneumothorax. Cardiomediastinal contours: Unremarkable Bones: No acute osseous abnormality. IMPRESSION: 1. Seminal changes bilaterally unchanged from 08/15/2024. HS:Y ATED BY: DINO KELSEY Jr., DO DICTATED DATE/TIME: 11/26/241618 SIGNED BY: DINO KELSEY Jr., SIGNED DATE/TIME: 11/26/241618 CC: Time of 1ST Reevaluation: 00:00 Reevaluation 1ST: Improved Patient Education/Counseling: Other (ELOPED) Family Education/Counseling: No Family Present Comments PATIENT ELOPED. PATIENT DOES NOT KNOW THE MEDICATIONS THAT HE IS TAKING SO WE COULD NOT REFILL IT FOR HIM. PATIENT IN NO ACUTE RESPIRATORY DISTRESS. Departure 1 Departure Time of Disposition: 19:35 Impression: Primary Impression: Dyspnea Additional Impressions: Noncompliance with medications Homelessness Eloped from emergency department Disposition: 07 LEFT AWOL/ELOPED Condition: Other Additional Instructions: PATIENT ELOPED Discharged With: Self Critical Care Note Critical Care Time?: No Heart Score Heart Score: Heart Score Response (Comments) Value History N/A 0 EKG N/A 0 Age N/A 0 Risk Factors N/A 0 Troponin N/A 0 Total 0 I personally scribed for TURNER MATA DO ([email or web address]) on 11/26/24 at 17:03. Electronically submitted by Tim Waller ([email or web address]). TURNER MATA DO November 26, 2024 15:56
--- NOTE | 2024-11-26 16:21 | DVH ---
CHEST RADIOGRAPH Indication: sob Technique: Single frontal view of the chest was obtained Comparison: XY CHEST XRAY 1 VIEW on DOS: 08/15/24, XY CHEST PORTABLE on DOS: 08/12/24, XY CHEST PORTABLE on DOS: 08/10/24 FINDINGS: Lines and Tubes: None Lungs: Severe emphysematous changes bilaterally. Pleura: No effusion. No pneumothorax. Cardiomediastinal contours: Unremarkable Bones: No acute osseous abnormality. IMPRESSION: 1. Seminal changes bilaterally unchanged from 08/15/2024. HS:Y
[2024-11-26] MEDS: IPRATROPIUM BROM 0.5 MG/2.5ML INH SOL NEB ONE (16:22)
[2024-11-26] MEDS: ALBUTEROL SULF 2.5 MG/0.5ML(0.5%) NEB SOLN NEB ONE (16:22)
[2024-11-26] MEDS: methylPREDNISolone SOD SUCC 40 MG/ML VL IM ONE (16:29)
[2024-11-26 16:45] VITALS: BP 146/114; PULSE 95; RESP 18; TEMP 97.7; O2SAT 95
[2024-11-26 16:57] LABS: Basophils # (auto) 0.1 10 ^3/uL (0-0.2); Basophils % (auto) 1.2 % (0.0-2.0); Eosinophils # (auto) 0.4 10 ^3/uL (0-0.8); Eosinophils % (auto) 5.1 % (0.0-7.0); Hematocrit 45.1 % (41.0-53.0); Hemoglobin 15.2 g/dL (13.5-17.5); Lymphocytes % (auto) 26.1 % (10.0-50.0); Mean Corpuscular Hemoglobin 29.5 pg (28.0-32.0); Mean Corpuscular Hgb Conc. 33.7 g/dL (32.0-36.0); Mean Corpuscular Volume 87.4 fL (80.0-100.0); Monocytes # (auto) 0.6 10 ^3/uL (0-1.3); Monocytes % (auto) 8.2 % (0.0-12.0); Neutrophils # (auto) 4.5 10 ^3/uL (1.6-8.6); Neutrophils % (auto) 59.4 % (37.0-80.0); Nucleated Red Blood Cells % 0.1 %; Platelet Count (auto) 258 10^3/uL (140-450); Red Blood Cells 5.16 10^6/uL (4.5-5.90); Red Cell Distribution Width 14.7 % (11.8-14.3); White Blood Cell 7.5 10^3/uL (4.4-10.8)
[2024-11-26 17:07] LABS: Alanine Aminotransferase 11 U/L (7-40); Albumin 4.2 g/dL (3.2-4.8); Alkaline Phosphatase 73 U/L (46-116); Anion Gap 9 (5-15); BUN/Creatinine Ratio 17.2 (10.0-20.0); Blood Urea Nitrogen 22 mg/dL (9-23); Carbon Dioxide 28 mmol/L (20-31); Chloride 103 mmol/L (98-107); Glucose 97 mg/dL (74-106); Potassium 3.7 mmol/L (3.5-5.1); Sodium 140 mmol/L (136-145); Total Protein 6.4 g/dL (5.7-8.2)
[2024-11-26 17:09] LABS: Aspartate Aminotransferase 12 U/L (13-40); Bilirubin, Total 0.2 mg/dL (0.2-1.0)
== END 2024-11-26 18:46 | disposition left against medical advice (07) ==
LOC: EDBD 15:46 → ER 15:46
DX: R06.00 Dyspnea, unspecified (principal); I10 Essential (primary) hypertension; F17.210 Nicotine dependence, cigarettes, uncomplicated; Z91.148 Patient's other noncompliance with medication regimen for other reason
CPT/HCPCS: 36415; 71045; 80053; 83605; 83735; 83880; 84484; 85025; 94640; 96372; 99284; J2919

== ENCOUNTER 2025-03-04 17:43 | Inpatient (IN) | payer MEDICAID ==
[~2025-03-04] VITALS: Ht 175.3 cm; Wt 68.0 kg
--- NOTE | 2025-03-04 18:02 | ED.PDOC ---
SOB-HPI HPI Comments HPI: 59M BIBA w/ the c/c of SOB/CP. Pt reports on calling EMS from home due from having left sided CP radiating to the back. EMS report that on scene the pt had bilateral wheezing and was given a breathing treatment of Albuterol and Atrovan. Pt was given 324mg of aspirin en rout to the ED. Social Hx of Tobacco use. Denies Any other Symptoms. Initial Vitals O2 Sat:93% RA on scene Past Medical history: COPD, HTN, Emphysema Past Surgical history: Ear Sx Medications: Social History: Denies ETOH, and drug use. Allergies: penicillins PEGUERO: SOB COPD HPI: Poor Historian. Past Medical History: Past Surgical History: REVIEW OF SYSTEMS: CONSTITUTIONAL: Denies acute: fever, diaphoresis, chills, generalized weakness. HEAD: Denies acute: headache, photophobia Eyes: Denies acute: Double vision, vision loss, eye pain, eye discharge. EARS: Denies acute: tinnitus, hearing loss, ear discharge, ear pain, THROAT: Denies acute: sore throat, swelling, difficulty swallowing , pain with swallowing, change in voice. NECK: Denies acute: neck pain, neck swelling, stiff neck. HEART: Denies acute : chest pain, palpitations, LUNGS: Denies acute: , , cough, hemoptysis ABDOMEN: Denies acute: abdominal pain, Nausea, Vomiting, diarrhea, melena , hematemesis, hematochezia SKIN: Denies acute: rash, redness, lesions, itchiness. EXTREMITIES: Denies acute: calf pain, numbness, tingling, weakness, denies pain in extremity. Denies acute: Low back pain. Neuro: Denies acute: focal neurological deficit, motor or sensory focal neurological deficit, tremors, seizure like activity, confusion, dizziness, change in mental status, loss of bowel or bladder function, cauda equina like symptoms. : Denies acute: dysuria, hematuria, flank pain, increase in urinary frequency. PSYCH: Denies acute: hallucination, suicidal ideation, homicidal ideation. PHYSICAL EXAM: General: ----mild moderate----acute distress, awake and alert. Head: normocephalic, atraumatic. Neck: supple, trachea is midline, no swelling. Throat: Normal phonation. Eyes:, no erythema, no purulent discharge, no proptosis, no icterus. Heart: regular rate, regular rhythm, no significant murmur appreciated. Lungs: no apparent respiratory distress, Able to speak in full sentences. Minimal wheezing, no rhonchi, no crackles. No stridors Abdomen: non tender to palpation, non distended, soft, no guarding, no rebound, + bowel sounds. Neuro: Awake, Alert, oriented to name, self, situation, follows commands GCS=15. Speech is normal. Skin: no petechia, no purpura, no cyanosis, non-pale, not jaundice. Lower extremities: --no - Pitting edema no deformity, no focal swelling, no calf TTP. Makes eye contact. moves all four extremities. Face: no apparent facial droop. ED COURSE: DISCLAIMER: This medical document was created using an electronic medical record system with voice recognition software and computerized dictation system. Although this document has been carefully reviewed, there might still be some phonetic and typographical errors. Occasional wrong-word or "sound-alike" substitutions may have occurred due to the inherent limitations of voice recognition software. These areas are purely typographical due to imperfections of the software programs and do not reflect any compromise in the patient's medical care. Please read the chart carefully and recognize, using context, where these substitutions have occurred. Chief Complaint: Shortness of Breath Time Seen by MD: 18:00 Primary Care Provider: NONE Reviewed notes: Nurses Notes, Medications, Allergies Information Source: Patient, Emergency Med Personnel Mode of Arrival: EMS Severity: Moderate Past Medical History PAST MEDICAL HISTORY: COPD, HTN Past Medical History (Other): Emphysema Surgical History (Other): Ear Sx Family History Family History: Reviewed,noncontributory to illness, Unknown Social History Smoker: Cigarettes Alcohol: Denies ETOH Use Drugs: Denies Drug Use Lives In: Home Was a procedure done? Was a procedure done?: No Differential Dx Differential Diagnosis: Other (DDx include ACS, unstable angina, anxiety, PE, pneumothroax, neoplasm, cardiac ischemia, COPD, asthma, CHF, pleural effusion, tobacco abuse, pneumonia, hypoxia, hypercapnia, anemia., infection/sepsis., pulmonary edema. Asthma, Cardiac tamponade, infection.) X-Ray, Labs, Meds, VS Vital Signs Date Time Temp Pulse Resp B/P (MAP) Pulse Ox O2 Delivery O2 Flow Rate FiO2 03/04/25 21:20 97.3 79 16 144/80 (101) 95 97.3 03/04/25 19:53 Room Air* 0 21 03/04/25 19:21 18 97 Room Air* 0 21 03/04/25 17:54 98.8 95 28 144/83 93 98.8 Lab Test 03/04/25 19:13 Range/Units White Blood Count 8.8 4.4-10.8 10^3/uL Red Blood Count 5.44 4.5-5.90 10^6/uL Hemoglobin 16.7 13.5-17.5 g/dL Hematocrit 48.3 41.0-53.0 % Mean Corpuscular Volume 88.9 80.0-100.0 fL Mean Corpuscular Hemoglobin 30.8 28.0-32.0 pg Mean Corpuscular Hemoglobin Concent 34.6 32.0-36.0 g/dL Red Cell Distribution Width 13.8 11.8-14.3 % Platelet Count 286 140-450 10^3/uL Mean Platelet Volume 6.5 L 6.9-10.8 fL Neutrophils (%) (Auto) 62.7 37.0-80.0 % Lymphocytes (%) (Auto) 23.1 10.0-50.0 % Monocytes (%) (Auto) 10.1 0.0-12.0 % Eosinophils (%) (Auto) 2.9 0.0-7.0 % Basophils (%) (Auto) 1.2 0.0-2.0 % Neutrophils # (Auto) 5.6 1.6-8.6 10 ^3/uL Lymphocytes # (Auto) 2.0 0.4-5.4 10 ^3/uL Monocytes # (Auto) 0.9 0-1.3 10 ^3/uL Eosinophils # (Auto) 0.3 0-0.8 10 ^3/uL Basophils # (Auto) 0.1 0-0.2 10 ^3/uL Nucleated Red Blood Cells 0.1 % Sodium Level 134 L 136-145 mmol/L Potassium Level 3.8 3.5-5.1 mmol/L Chloride Level 102 98-107 mmol/L Carbon Dioxide Level 24 20-31 mmol/L Anion Gap 10 5-15 Blood Urea Nitrogen 13 9-23 mg/dL Creatinine 1.67 H 0.700-1.30 mg/dL Glomerular Filtration Rate Calc 47 >90 mL/min BUN/Creatinine Ratio 7.8 L 10.0-20.0 Serum Glucose 103 74-106 mg/dL Lactic Acid Level 1.9 0.4-2.0 mmol/L Calcium Level 9.6 8.7-10.4 mg/dL Total Bilirubin 0.4 0.2-1.0 mg/dL Aspartate Amino Transferase (AST) 18 13-40 U/L Alanine Aminotransferase (ALT) 13 7-40 U/L Alkaline Phosphatase 66 46-116 U/L Troponin I High Sensitivity 11 </=54 ng/L B-Type Natriuretic Peptide 20.67 0-100 pg/mL Total Protein 7.3 5.7-8.2 g/dL Albumin 4.3 3.2-4.8 g/dL [place] [id number] Ph: [phone] DIAGNOSTIC IMAGING Diagnostic Imaging Report : [id number] Signed PATIENT: ROBERTO PEGUEROCCT: [id number] UNIT: [id number] : 1965 LOC: ER ROOM / BED: / AGE / SEX: 59 / M ADM STATUS: REG ER SERVICE [id number] ORDERING PHYSICIAN: TURNER MATA DO PROCEDURE(s): CXRP - CHEST PORTABLE REASON: sob ORDER NUMBER(s): [id number], ACCESSION NUMBER(s): [id number] EXAMINATION: XY CHEST PORTABLE CLINICAL HISTORY: sob COMPARISON: XY CHEST PORTABLE on DOS: 11/26/24, XY CHEST XRAY 1 VIEW on DOS: 08/15/24 Findings and impression: Severe emphysematous changes again noted bilaterally. Atelectasis/scarring in the lower lung vega appears relatively stable as well. Correlate to exclude atypical infection. Hyperlucent left upper lung field appears to be a chronic finding. Left pneumothorax is a possibility, however, a visceral pleural line is not evident. Stable cardiomediastinal silhouette. ATED BY: RAVIN WILLIAMSON MD DICTATED DATE/TIME: 03/04/252009 SIGNED BY: RAVIN WILLIAMSON MD SIGNED DATE/TIME: 03/04/252009 CC: Time of 1ST Reevaluation: 18:30 Reevaluation 1ST: Unchanged Patient Education/Counseling: Diagnosis, Treatment Family Education/Counseling: No Family Present Comments MDM: patient presented with the above HPI.----dyspnea--workup was initiated. patient was found with the above mentioned diagnosis. the following medications were ordered: please refer to order lists of meds and tests obtained by myself Dr. Mata. Patient ED course and VS have been stabilized. Patient has been reassessed in the ED and remained in a stable condition. Pertinent incidental findings were discussed with the patient and/or family. Patient/family voices understanding and is agreeable with plan. Patient has been observed in the ED adequate length of time to insure improvement/stability. Escalation of care considered: Consideration of escalation to observation or admission Patient was given steroids, DuoNeb treatments, Patient was ADMITTED to the medicine team for further evaluation and treatment of their presentation. All the reports of any imaging studies that were ordered by myself were reviewed by myself. SEPSIS Sepsis Screen Physician Orders Electrocardigram (03/04/25 17:48) Orthopaedic General (03/04/25 ) Chest Portable (03/04/25 18:58) Electrocardigram (03/04/25 18:58) Chest Without Contrast (03/04/25 20:44) Vital Signs Date Time Temp Pulse Resp B/P (MAP) Pulse Ox O2 Delivery O2 Flow Rate FiO2 03/04/25 21:20 97.3 79 16 144/80 (101) 95 97.3 03/04/25 19:53 Room Air* 0 21 03/04/25 19:21 18 97 Room Air* 0 21 03/04/25 17:54 98.8 95 28 144/83 93 98.8 Laboratory Tests Test 03/04/25 19:13 Lactic Acid Level 1.9 mmol/L (0.4-2.0) White Blood Count 8.8 10^3/uL (4.4-10.8) Departure 1 Departure Time of Disposition: 19:00 Impression: Primary Impression: COPD exacerbation Disposition: ADMITTED INPATIENT Admit to: Tele Condition: Guarded Discharged With: Self Critical Care Note Critical Care Time?: Yes (35 min-critical care time only) Heart Score Heart Score: Heart Score Response (Comments) Value History N/A 0 EKG N/A 0 Age N/A 0 Risk Factors N/A 0 Troponin N/A 0 Total 0 I personally scribed for TURNER MATA DO ([email or web address]) on 03/04/25 at 18:02. Electronically submitted by Tim Waller ([email or web address]). I personally scribed for TURNER MATA DO ([email or web address]) on 03/04/25 at 20:43. Electronically submitted by Tim Waller ([email or web address]). TURNER MATA DO Mar 04, 2025 18:02
[2025-03-04] MEDS: IPRATROPIUM BROM 0.5 MG/2.5ML INH SOL NEB ONE (19:19)
[2025-03-04] MEDS: ALBUTEROL SULF 2.5 MG/0.5ML(0.5%) NEB SOLN NEB ONE (19:19)
[2025-03-04 19:29] LABS: Hematocrit 48.3 % (41.0-53.0); Hemoglobin 16.7 g/dL (13.5-17.5); Mean Corpuscular Hemoglobin 30.8 pg (28.0-32.0); Mean Corpuscular Volume 88.9 fL (80.0-100.0); Nucleated Red Blood Cells % 0.1 %
[2025-03-04 19:43] LABS: Alanine Aminotransferase 13 U/L (7-40); Alkaline Phosphatase 66 U/L (46-116); BUN/Creatinine Ratio 7.8 (10.0-20.0); Blood Urea Nitrogen 13 mg/dL (9-23); Calcium 9.6 mg/dL (8.7-10.4); Carbon Dioxide 24 mmol/L (20-31); Glucose 103 mg/dL (74-106); Total Protein 7.3 g/dL (5.7-8.2)
[2025-03-04 19:44] LABS: Albumin 4.3 g/dL (3.2-4.8); Bilirubin, Total 0.4 mg/dL (0.2-1.0)
[2025-03-04] MEDS: methylPREDNISolone SOD SUCC 125 MG/2 ML VL IV ONE (19:53)
[2025-03-04 19:57] LABS: Anion Gap 10 (5-15); Chloride 102 mmol/L (98-107); Potassium 3.8 mmol/L (3.5-5.1)
[2025-03-04 19:58] LABS: Sodium 134 mmol/L (136-145)
--- NOTE | 2025-03-04 20:13 | DVH ---
EXAMINATION: XY CHEST PORTABLE CLINICAL HISTORY: sob COMPARISON: XY CHEST PORTABLE on DOS: 11/26/24, XY CHEST XRAY 1 VIEW on DOS: 08/15/24 Findings and impression: Severe emphysematous changes again noted bilaterally. Atelectasis/scarring in the lower lung vega appears relatively stable as well. Correlate to exclud e atypical infection. Hyperlucent left upper lung field appears to be a chronic finding. Left pneumothorax is a possibility , however, a visceral pleural line is not evident. Stable cardiomediastinal silhouette.
--- NOTE | 2025-03-04 22:25 | DVH ---
CT SCAN CHEST WITHOUT CONTRAST CLINICAL HISTORY: sob TECHNIQUE: Helical axial scans are obtained from the thoracic inlet to the upper abdomen without intr avenous contrast injection. Coronal and sagittal reformatted images were generated from thin-section reconstructions. One or more of the following radiation dose reduction techniques were used for this examination: automated exposure control, adjustment of the mA and/or kV according to patient size, us e of iterative reconstruction technique. COMPARISON: XY CHEST PORTABLE on DOS: 03/04/25, XY CHEST PORTABLE on DOS: 11/26/24 FINDINGS: Mediastinum: The heart is normal in size. No pericardial effusion. Coronary artery calcifications no nilesh. No mediastinal adenopathy. Lung parenchyma: Severe emphysematous changes, predominantly involving the upper lobes. Scattered ret iculation/scarring in the inferior aspect of the upper lobes. Pleura: Bullous changes involving the upper lobes, worse on the left, without definite pneumothorax. No sizable pleural effusion. Chest wall/axillae: No axillary adenopathy noted. Upper Abdomen: No acute findings as visualized. Ill-defined hypodensities in the imaged left upper ki dney may reflect cysts but are otherwise incompletely characterized. IMPRESSION: Advanced upper lobe predominant emphysematous changes. No definite evidence of pneumothorax.
[2025-03-04] MEDS ORDERED: DOCUSATE SOD 100 MG CAP PO PRN (23:15)
[2025-03-04] MEDS ORDERED: NITROGLYCERIN 0.4 MG SL TAB SL PRN (23:15)
[2025-03-04] MEDS ORDERED: ACETAMINOPHEN 325 MG TAB PO PRN (23:15)
[2025-03-04] MEDS ORDERED: HYDROcodone-ACET 5/325MG TAB PO PRN (23:15)
[2025-03-04] MEDS ORDERED: ONDANSETRON HCL 4 MG/2 ML VIAL IV PRN (23:15)
--- NOTE | 2025-03-04 23:23 | ECG ---
[facility] Test Date: 2025-03-04 Test Time: 17:42:33 Pat Name: ROBERTO PEGUERO Department: Room: [address] [place] [address] Gender: M Regenerator Operator: FORREST : 1965 Requested By: TURNER MATA Order Number: [id number] Reading MD: Imer Joseph Measurements Intervals [place] Rate: 98 P: 87 CT: 149 QRS: 89 QRSD: 93 T: 76 QT: 377 QTc: 482 Interpretive Statements Sinus rhythm Borderline prolonged QT interval Electronically Signed On 03-05-2025 16:45:04 PDT by Imer Joseph Please click the below link to view image of tracing.
[2025-03-05] VITALS (9 sets, daily range): BP systolic 125–140; BP diastolic 92–94; PULSE 73–94; RESP 16–19; TEMP 98–98.4; O2SAT 91–100
[2025-03-05] MEDS ORDERED: ALBUTEROL SULF 2.5 MG/0.5ML(0.5%) NEB SOLN NEB PRN (02:30)
[2025-03-05] MEDS ORDERED: IPRATROPIUM BROM 0.5 MG/2.5ML INH SOL NEB PRN (02:30)
[2025-03-05] MEDS: ALBUTEROL SULF 2.5 MG/0.5ML(0.5%) NEB SOLN NEB ONE (03:02)
[2025-03-05] MEDS: IPRATROPIUM BROM 0.5 MG/2.5ML INH SOL NEB ONE (03:03)
[2025-03-05] MEDS: LACTULOSE 20Gm/30ML SOLN PO ONE (04:15)
[2025-03-05] MEDS: FAMOTIDINE 20 MG TAB PO ONE (04:15)
[2025-03-05 04:40] LABS: Hematocrit 46.2 % (41.0-53.0); Hemoglobin 16.2 g/dL (13.5-17.5); Mean Corpuscular Hemoglobin 30.8 pg (28.0-32.0); Mean Corpuscular Volume 87.8 fL (80.0-100.0); Nucleated Red Blood Cells % 0.0 %
[2025-03-05 04:58] LABS: Alanine Aminotransferase 12 U/L (7-40); Albumin 4.6 g/dL (3.2-4.8); Alkaline Phosphatase 66 U/L (46-116); Anion Gap 9 (5-15); BUN/Creatinine Ratio 11.7 (10.0-20.0); Blood Urea Nitrogen 20 mg/dL (9-23); Calcium 9.9 mg/dL (8.7-10.4); Carbon Dioxide 28 mmol/L (20-31); Chloride 99 mmol/L (98-107); Potassium 3.9 mmol/L (3.5-5.1); Total Protein 7.1 g/dL (5.7-8.2)
[2025-03-05 04:59] LABS: Bilirubin, Total 0.4 mg/dL (0.2-1.0)
[2025-03-05 05:01] LABS: Glucose 198 mg/dL (74-106); Sodium 136 mmol/L (136-145)
[2025-03-05 06:05] LABS: Magnesium 2.2 mg/dL (1.6-2.6)
--- NOTE | 2025-03-05 06:32 | DVHHPRES ---
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 Patient states he has had shortness of breath since 8 months on and off but aggravated in the past 2 days. He rates the chest pain 7/10, radiating to the left arm with associated weakness of the left arm. He admits to using methamphetamine 3 days back. Patient is homeless and says he ran out of his medications months ago. Family history: Lung cancer in father in his 50s, skin cancer in mother in her 70s Social history: Denies alcohol use, 40 pack year smoking history, admits to using marijuana and methamphetamine Home medication: Does not have medication list, Reconcile home meds Allergic history: Penicillin Review of Systems Review of Systems General: patient denies fever, fatigue, weaknes, sweating, any recent changes in appetite and weight HEENT: No headaches, visiual changes, hearing loss, tinnitus, nasal congestion and discharge, and sore throat. Cardiovascular: Complains of chest pain radiating to the left arm with associated weakness. Respiratory: Complains of shortness of breath and cough. Gastrointestinal: Denies nausea, vomiting, dysphagia, odynophagia, heartburn, abdominal pain, flatulence, bloating, diarrhea, constipation, change in stool, or blood in stool. Genitourinary: No dysuria, hematuria, discharge, frequency, urgency, nocturia, incontinence, and urinary retention. Endocrine: No heat or cold intolerance, polydipsia, polyuria, and polyphagia. Neurological: No dizziness, extremity weakness and numbness, tremors, gait disturbance, seizures, and memory impairment. Psychiatric: Denies depression, anxiety,or insomnia. Musculoskeletal: Denies neck pain, stiffness and swelling, back pain, muscle weakness, joint pain, stiffness, swelling, or limited range of motion. Skin: No rashes, itching, skin lesion, changes in hair, nail, skin texture and breast. Hematologic/Lymphatic: Denies easy bruising, bleeding tendencies, or lymph node enlargement. Allergies: Coded Allergies: Penicillins (Verified Allergy, Unknown, 10/11/23) Medications Current Medications Medications Dose Ordered Sig/Sherine Route Start Time Stop Time Status Last Admin Dose Admin Acetaminophen 325 mg Q4HP PRN PO 03/04/25 23:15 Acetaminophen/ Hydrocodone Bitart 1 tab Q4HP PRN PO 03/04/25 23:15 Ondansetron HCl 4 mg Q4HP PRN IV 03/04/25 23:15 Docusate Sodium 100 mg BIDPRN PRN PO 03/04/25 23:15 Nitroglycerin 0.4 mg Q5MINP PRN SL 03/04/25 23:15 Exam Vital Signs Vital Signs Date Time Temp Pulse Resp B/P (MAP) Pulse Ox O2 Delivery O2 Flow Rate FiO2 03/04/25 21:20 97.3 79 16 144/80 (101) 95 97.3 03/04/25 19:53 Room Air* 0 21 Exam General Appearance: Alert, Oriented X3, Cooperative, mild distress HEENT: Atraumatic, PERRLA, EOMI, Mucous membrane moist/pink Respiratory: Clear to auscultation, Normal air movement Cardiovascular: Regular rate, Normal S1, Normal S2, No murmurs. tenderness present in left chest and shoulder, reproducible Abdominal: Normal bowel sounds, Soft, No tenderness, No hepatospenomegaly, No masses Extremities: No clubbing, No cyanosis, No edema, Normal pulses, No tenderness/swelling Skin: No rashes, No breakdown, No significant lesion Neuro: Normal gait, Normal speech, Strength at 5/5 X4 ext, Normal tone, Sensation intact, Cranial nerves 3-12 NL, Reflexes 2+ Psych/Mental Status: Mental status NL, Mood NL Labs/Xrays Labs Test 03/04/25 19:13 Range/Units White Blood Count 8.8 4.4-10.8 10^3/uL Red Blood Count 5.44 4.5-5.90 10^6/uL Hemoglobin 16.7 13.5-17.5 g/dL Hematocrit 48.3 41.0-53.0 % Mean Corpuscular Volume 88.9 80.0-100.0 fL Mean Corpuscular Hemoglobin 30.8 28.0-32.0 pg Mean Corpuscular Hemoglobin Concent 34.6 32.0-36.0 g/dL Red Cell Distribution Width 13.8 11.8-14.3 % Platelet Count 286 140-450 10^3/uL Mean Platelet Volume 6.5 L 6.9-10.8 fL Neutrophils (%) (Auto) 62.7 37.0-80.0 % Lymphocytes (%) (Auto) 23.1 10.0-50.0 % Monocytes (%) (Auto) 10.1 0.0-12.0 % Eosinophils (%) (Auto) 2.9 0.0-7.0 % Basophils (%) (Auto) 1.2 0.0-2.0 % Neutrophils # (Auto) 5.6 1.6-8.6 10 ^3/uL Lymphocytes # (Auto) 2.0 0.4-5.4 10 ^3/uL Monocytes # (Auto) 0.9 0-1.3 10 ^3/uL Eosinophils # (Auto) 0.3 0-0.8 10 ^3/uL Basophils # (Auto) 0.1 0-0.2 10 ^3/uL Nucleated Red Blood Cells 0.1 % Sodium Level 134 L 136-145 mmol/L Potassium Level 3.8 3.5-5.1 mmol/L Chloride Level 102 98-107 mmol/L Carbon Dioxide Level 24 20-31 mmol/L Anion Gap 10 5-15 Blood Urea Nitrogen 13 9-23 mg/dL Creatinine 1.67 H 0.700-1.30 mg/dL Glomerular Filtration Rate Calc 47 >90 mL/min BUN/Creatinine Ratio 7.8 L 10.0-20.0 Serum Glucose 103 74-106 mg/dL Lactic Acid Level 1.9 0.4-2.0 mmol/L Calcium Level 9.6 8.7-10.4 mg/dL Total Bilirubin 0.4 0.2-1.0 mg/dL Aspartate Amino Transferase (AST) 18 13-40 U/L Alanine Aminotransferase (ALT) 13 7-40 U/L Alkaline Phosphatase 66 46-116 U/L Troponin I High Sensitivity 11 </=54 ng/L B-Type Natriuretic Peptide 20.67 0-100 pg/mL Total Protein 7.3 5.7-8.2 g/dL Albumin 4.3 3.2-4.8 g/dL SEPSIS Sepsis Screen Date sepsis recognized/suspect: Mar 04, 2025 Time Sepsis recognized/suspect: 1755 Recent Procedure: No On Antibiotic Therapy: No Respiratory Rate >20: No Heart Rate >90: No Temp<36 C (96.8 F) or >38.3 C: No SBP <90 or MAP <65 mmHG: No New Acute Mental Status Change: No Is the patient on CPAP, BIPAP,: No Physician Orders General Assembler (03/04/25 ) Chest Portable (03/04/25 18:58) Electrocardigram (03/04/25 18:58) Chest Without Contrast (03/04/25 20:44) Admit (03/04/25 23:15) Allergies (03/04/25 23:15) Code Status (03/04/25 23:15) Acetaminophen Tablet (Tylenol Tablet) (03/04/25 23:15) Hydrocodone-Acet 5/325mg Tab (Lutts (03/04/25 23:15) Ondansetron Hcl (Zofran) (03/04/25 23:15) Docusate Sodium Capsule (Colace Capsule) (03/04/25 23:15) Complete Blood Count (03/05/25 04:00) Comprehensive Metabolic Panel (03/05/25 04:00) Cardiac Diet-2gna,Lofat,Lochol (03/05/25 Breakfast) Condition: Fair (03/04/25 23:15) Stat Ekg For Chest Pain (03/04/25 23:15) Nitroglycerin Sublingual (Ntrostat Subli (03/04/25 23:15) Covid19 Antigen Talia (03/04/25 ) Rapid Influenza A&B (03/04/25 23:32) Vital Signs Date Time Temp Pulse Resp B/P (MAP) Pulse Ox O2 Delivery O2 Flow Rate FiO2 03/04/25 21:20 97.3 79 16 144/80 (101) 95 97.3 03/04/25 19:53 Room Air* 0 21 03/04/25 19:21 18 97 Room Air* 0 21 03/04/25 17:54 98.8 95 28 144/83 93 98.8 Laboratory Tests Test 03/04/25 19:13 Lactic Acid Level 1.9 mmol/L (0.4-2.0) White Blood Count 8.8 10^3/uL (4.4-10.8) Medications Medications Dose Ordered Sig/Sheirne Route Start Time Stop Time Status Last Admin Dose Admin Albuterol 2.5 mg ONCE ONCE NEB 03/04/25 19:00 03/04/25 19:01 DC 03/04/25 19:19 2.5 MG Ipratropium [place] 1 mg ONCE ONCE NEB 03/04/25 19:00 03/04/25 19:01 DC 03/04/25 19:19 1 MG Methylprednisolone Sodium Succinate 125 mg ONCE ONCE IV 03/04/25 19:00 03/04/25 19:01 DC 03/04/25 19:53 125 MG Assessment/Plan Assessment/Plan #Acute exacerbation of COPD #Emphysema/COPD #JARRET on CKD #History of essential hypertension #Prediabetic #Extensive osteoarthritis #Gastroesophageal reflux disease-famotidine #Homelessness #Polysubstance abuse # history of tympanic membrane rupture as a child IV fluids Nebulization with albuterol and ipratropium Prednisone, doxycycline Follow Sputum culture urine drug screen, serum alcohol hemoglobin A1c renal ultrasound Urinalysis Famotidine-GI prophylaxis Follow COVID, influenza Barriers to discharge: Medical management in progress. Case discussed with Dr. Fernandez Code status: Full code. Complex patient care discussion needed total 31 minutes Plan discussed with: Patient My Orders Orders - BELEN LANIER RESIDENT Procedure Category Date Status Time Admit ADMIT 03/04/25 Transmitted 23:15 Allergies AROLDO 03/04/25 In Process 23:15 Code Status CODE 03/04/25 Transmitted 23:15 Acetaminophen Tablet PHA 03/04/25 In Process (Tylenol Tablet) 23:15 Hydrocodone-Acet PHA 03/04/25 In Process 5/325mg Tab (Lutts 23:15 Ondansetron Hcl PHA 03/04/25 In Process (Zofran) 23:15 Docusate Sodium PHA 03/04/25 In Process Capsule (Colace 23:15 Complete Blood Count LAB 03/05/25 Verified 04:00 Comprehensive LAB 03/05/25 Verified Metabolic Panel 04:00 Cardiac DIET 03/05/25 Transmitted Diet-2gna,Lofat,Lochol Breakfast Condition: Fair AROLDO 03/04/25 In Process 23:15 Stat Ekg For Chest AROLDO 03/04/25 In Process Pain 23:15 Nitroglycerin PHA 03/04/25 In Process Sublingual (Ntrostat 23:15 Covid19 Antigen Talia LAB 03/04/25 Logged Rapid Influenza A&B LAB 03/04/25 Logged 23:32 Date of Service: Mar 05, 2025 Billing Provider: KAYLA FERNANDEZ MD Common Visit Codes: 70813-ABZXUDX INP/OBS CARE (HIGH) Secondary Visit Codes: 67214-AWIUIZWY CARE PLAN 30 MINUTES BELEN LANIER RESIDENT Mar 04, 2025 23:41
[2025-03-05 06:55] LABS: Urine Protein, UAD Negative (Negative)
[2025-03-05 07:08] LABS: Amphetamine Screen, Urine Pos (NEGATIVE); Barbiturate Scree,Urine Neg (NEGATIVE); Benzodiazephine Screen, Urine Neg (NEGATIVE); Cannabinoid Screen, Urine Neg (NEGATIVE); Cocaine Screen, Urine Neg (NEGATIVE); Opiate Scree,Urine Neg (NEGATIVE); Phencyclidine Screen, Urine Neg (NEGATIVE)
[2025-03-05] MEDS: predniSONE 20 MG TAB PO SCH (07:47)
[2025-03-05] MEDS: DOXYCYCLINE 100 MG TAB/CAP PO SCH (07:47)
--- NOTE | 2025-03-05 07:52 | DVH ---
US KIDNEY HISTORY: rule out Kidney, ureter and bladder pathology COMPARISON: None TECHNIQUE: Transverse and longitudinal grayscale and color doppler images were obtained of the kidney s and bladder. FINDINGS: Right kidney: Size: 9.8 cm Cortical thickness: Normal Echogenicity: Normal Stones: None Masses: None Hydronephrosis: Trace Ureters: Not well visualized. Other: None Left kidney: Size: 8.3 cm Cortical thickness: Normal Echogenicity: Normal Stones: None Masses: None Hydronephrosis: None Ureters: Not well visualized. Other: None Bladder: Normal Other: None. IMPRESSION: Trace right hydronephrosis, otherwise unremarkable renal US findings.
[2025-03-05 07:55] LABS: COVID19 ANTIGEN SOFIA FIA NEGATIVE (NEGATIVE)
[2025-03-05] MEDS: SODIUM CHLORIDE 0.9% 1,000 ML IV SCH (08:03)
[2025-03-05] MEDS: LACTULOSE 20Gm/30ML SOLN PO SCH (10:00)
[2025-03-05] MEDS ORDERED: FAMOTIDINE 20 MG TAB PO SCH (10:00)
--- NOTE | 2025-03-05 10:21 | DVHPN2 ---
Objective Vitals Vital Signs Date Time Temp Pulse Resp B/P (MAP) Pulse Ox O2 Delivery O2 Flow Rate FiO2 03/05/25 08:18 98.0 94 19 125/92 (103) 93 98.0 03/05/25 03:06 Room Air 03/05/25 03:06 0 21 Intake/Output Intake and Output 03/05/25 07:00 Intake Total 400 ml Output Total 500 ml Balance -100 ml Intake Oral 400 ml Output Urine Total 500 ml Medications Current Medications Medications Dose Ordered Sig/Sherine Route Start Time Stop Time Status Last Admin Dose Admin Acetaminophen 325 mg Q4HP PRN PO 03/04/25 23:15 Acetaminophen/ Hydrocodone Bitart 1 tab Q4HP PRN PO 03/04/25 23:15 Ondansetron HCl 4 mg Q4HP PRN IV 03/04/25 23:15 Docusate Sodium 100 mg BIDPRN PRN PO 03/04/25 23:15 Nitroglycerin 0.4 mg Q5MINP PRN SL 03/04/25 23:15 Albuterol 2.5 mg Q4HPRN PRN NEB 03/05/25 02:30 Ipratropium [place] 0.5 mg Q4HPRN PRN NEB 03/05/25 02:30 Famotidine 20 mg Q12HR PO 03/05/25 10:00 UNV Lactulose 15 ml DAILY PO 03/05/25 10:00 Famotidine 20 mg DAILY PO 03/06/25 10:00 Prednisone 40 mg DAILY PO 03/05/25 06:15 03/05/25 07:47 40 MG Doxycycline Monohydrate 100 mg Q12HR PO 03/05/25 06:30 03/05/25 07:47 100 MG Sodium Chloride 1,000 ml @ 100 mls/hr Q10H IV 03/05/25 06:45 03/05/25 08:03 100 MLS/HR Laboratory Results Laboratory Tests 03/05/25 04:29 Chemistry Test 03/04/25 19:13 03/05/25 04:29 Albumin 4.3 g/dL (3.2-4.8) 4.6 g/dL (3.2-4.8) Calcium Level 9.6 mg/dL (8.7-10.4) 9.9 mg/dL (8.7-10.4) Total Protein 7.3 g/dL (5.7-8.2) 7.1 g/dL (5.7-8.2) Magnesium Level 2.2 mg/dL (1.6-2.6) Phosphorus Level 2.9 mg/dL (2.4-5.1) Cardiac Markers Test 03/04/25 19:13 03/05/25 04:29 B-Type Natriuretic Peptide 20.67 pg/mL (0-100) 14.24 pg/mL (0-100) LFT Test 03/04/25 19:13 03/05/25 04:29 Alanine Aminotransferase (ALT) 13 U/L (7-40) 12 U/L (7-40) Alkaline Phosphatase 66 U/L (46-116) 66 U/L (46-116) Aspartate Amino Transferase (AST) 18 U/L (13-40) 16 U/L (13-40) Total Bilirubin 0.4 mg/dL (0.2-1.0) 0.4 mg/dL (0.2-1.0) HgA1c, TSH Test 03/05/25 04:29 Hemoglobin A1c 5.9 % A1C (<5.7) H Urinalysis Test 03/05/25 05:30 Urine Color Light-yellow (Yellow) Urine Clarity Clear (Clear) Urine pH 5.0 (5.0-9.0) Urine Specific [place] 1.014 (1.001-1.035) Urine Protein Negative (Negative) Urine Ketones Negative (Negative) Urine Blood Negative /uL (Negative) Urine Nitrite Negative (Negative) Urine Bilirubin Negative (Negative) Urine Urobilinogen Normal mg/dL (Negative) Urine Leukocyte Esterase Negative /uL (Negative) Urine RBC 1 /hpf (0 - 3) Urine Microscopic WBC 1 /HPF (0-3) Urine Squamous Epithelial Cells None seen /hpf (<5) Urine Bacteria None seen /hpf (None Seen) Urine Hyaline Casts Few /lpf (0 - 2) Urine Glucose Normal mg/dL (Normal) KORI RUSSELL MD Mar 05, 2025 10:21
[2025-03-05] MEDS: methylPREDNISolone SOD SUCC 125 MG/2 ML VL IV SCH (14:00)
--- NOTE | 2025-03-05 14:54 | DVHSR ---
APPROVED REPORT EXAM: Two-dimensional and M-mode echocardiogram with Doppler and color Doppler. Blood Pressure: 125/92 mmHg INDICATION Rule out structural heart disease RISK FACTORS Height: 5'9", Weight: 149 DIMENSIONS LVDd3.8 (3.8-5.7cm)LA (2D)3.1 (1.9-4.0cm)Aortic Root3.6 (2.0-3.7cm) LVDs2.6 (2.5-4.0cm)LA (MM) (1.9-4.0cm)Aortic Cusp Exc1.9 (1.5-2.0cm) EF (%) 60.0 (55-70%)Rt. Atrium3.0 (1.9-4.0cm)Asc. Aorta cm IVSd0.9 (0.7-1.1cm)RV (D)3.6 (1.8-2.4cm) PWd0.9 (0.7-1.1cm) Mitral Valve MitralMitral Stenosis E wave0.62m/sMV Mean GR.mmHg A wave1.05m/sMV Peak GR.mmHg E/A ratio0.62D MVAcm2 DECEL [id number] 1/2 [place] Aortic Valve Aortic ValveAortic Stenosis V11.18m/Benjamin Mean GR.4mmHg V21.52m/Benjamin Peak GR.9mmHg LVOT Diameter2.0 (1.8-2.4cm)Doppler AVA2.44cm2 Pulmonic Valve V21.09m/s Other Information Technically limited study due to body habitus. Conclusion Technically good study sinus rhythm. Normal chamber sizes. Valves are normal. Left ventricular function is preserved at 60% with normal RV function. Dopplers unremarkable. No pericardial effusion masses or vegetations.
--- NOTE | 2025-03-06 00:04 | DVHDS2 ---
Discharge Summary Date of Admission Mar 04, 2025 at 23:15 Date of Discharge: Mar 05, 2025 Admitting Diagnosis #Acute exacerbation of COPD #Emphysema/COPD #JARRET on CKD #History of essential hypertension #Prediabetic #Extensive osteoarthritis #Gastroesophageal reflux disease-famotidine #Homelessness #Polysubstance abuse # history of tympanic membrane rupture as a child Labs/Diagnostic Data: Laboratory Results Test 03/05/25 06:30 03/05/25 05:30 03/05/25 04:29 03/04/25 19:13 SARS-CoV-2 Antigen (Rapid) Negative (NEGATIVE) Urine Color Light-yellow (Yellow) Urine Clarity Clear (Clear) Urine pH 5.0 (5.0-9.0) Urine Specific [place] 1.014 (1.001-1.035) Urine Protein Negative (Negative) Urine Ketones Negative (Negative) Urine Blood Negative /uL (Negative) Urine Nitrite Negative (Negative) Urine Bilirubin Negative (Negative) Urine Urobilinogen Normal mg/dL (Negative) Urine Leukocyte Esterase Negative /uL (Negative) Urine RBC 1 /hpf (0 - 3) Urine Microscopic WBC 1 /HPF (0-3) Urine Squamous Epithelial Cells None seen /hpf (<5) Urine Bacteria None seen /hpf (None Seen) Urine Hyaline Casts Few /lpf (0 - 2) Urine Glucose Normal mg/dL (Normal) Urine Opiates Screen Neg (NEGATIVE) Urine Fentanyl Screen Neg (NEGATIVE) Urine Barbiturates Screen Neg (NEGATIVE) Urine Phencyclidine Screen Neg (NEGATIVE) Urine Amphetamines Screen Pos (NEGATIVE) Urine Benzodiazepines Screen Neg (NEGATIVE) Urine Cocaine Screen Neg (NEGATIVE) Urine Cannabinoids Screen Neg (NEGATIVE) White Blood Count 7.2 10^3/uL (4.4-10.8) Red Blood Count 5.26 10^6/uL (4.5-5.90) Hemoglobin 16.2 g/dL (13.5-17.5) Hematocrit 46.2 % (41.0-53.0) Mean Corpuscular Volume 87.8 fL (80.0-100.0) Mean Corpuscular Hemoglobin 30.8 pg (28.0-32.0) Mean Corpuscular Hemoglobin Concent 35.1 g/dL (32.0-36.0) Red Cell Distribution Width 14.1 % (11.8-14.3) Platelet Count 269 10^3/uL (140-450) Mean Platelet Volume 6.4 fL (6.9-10.8) Neutrophils (%) (Auto) 89.4 % (37.0-80.0) Lymphocytes (%) (Auto) 9.3 % (10.0-50.0) Monocytes (%) (Auto) 0.7 % (0.0-12.0) Eosinophils (%) (Auto) 0.1 % (0.0-7.0) Basophils (%) (Auto) 0.5 % (0.0-2.0) Neutrophils # (Auto) 6.5 10 ^3/uL (1.6-8.6) Lymphocytes # (Auto) 0.7 10 ^3/uL (0.4-5.4) Monocytes # (Auto) 0 10 ^3/uL (0-1.3) Eosinophils # (Auto) 0 10 ^3/uL (0-0.8) Basophils # (Auto) 0 10 ^3/uL (0-0.2) Nucleated Red Blood Cells 0.0 % Sodium Level 136 mmol/L (136-145) Potassium Level 3.9 mmol/L (3.5-5.1) Chloride Level 99 mmol/L (98-107) Carbon Dioxide Level 28 mmol/L (20-31) Anion Gap 9 (5-15) Blood Urea Nitrogen 20 mg/dL (9-23) Creatinine 1.71 mg/dL (0.700-1.30) Glomerular Filtration Rate Calc 46 mL/min (>90) BUN/Creatinine Ratio 11.7 (10.0-20.0) Serum Glucose 198 mg/dL (74-106) Hemoglobin A1c 5.9 % A1C (<5.7) Calcium Level 9.9 mg/dL (8.7-10.4) Phosphorus Level 2.9 mg/dL (2.4-5.1) Magnesium Level 2.2 mg/dL (1.6-2.6) Total Bilirubin 0.4 mg/dL (0.2-1.0) Aspartate Amino Transferase (AST) 16 U/L (13-40) Alanine Aminotransferase (ALT) 12 U/L (7-40) Alkaline Phosphatase 66 U/L (46-116) B-Type Natriuretic Peptide 14.24 pg/mL (0-100) Total Protein 7.1 g/dL (5.7-8.2) Albumin 4.6 g/dL (3.2-4.8) Plasma/Serum Blood Alcohol < 3.0 mg/dL (<10) Lactic Acid Level 1.9 mmol/L (0.4-2.0) Troponin I High Sensitivity 11 ng/L (</=54) Other Laboratory Tests 03/05/25 04:29 Brief Hx & Hospital Course: This is a 59 years old male with past medical history hypertension, emphysema, came to emergency department because of cough, shortness for breath and chest pain. The patient has shortness for breath for eight months on and off getting worse this time so he decided to come to the hospital for further evaluation. The patient also had chest pain 7/10 radiating to left arm associated with weakness on the left arm. He had been using methamphetamine for three days prior to admission. The patient is homeless and said he ran out of medication about a month ago. The patient was admitted . CT chest was done so severe upper lobe emphysema. the patient was given IV antibiotic with Rocephin and Zithromax. The patient was given nebulizer and Solu-Medrol IV. The patient also was started on aspirin. Cardiology consulted. The patient grew inpatient and decided to leave against medical advice. The patient verbally understands without treatment for COPD is going to get worse. It may result in acute respiratory failure or even but he is still choose to leave against medical advice Physical exam: HEENT: Normocephalic atraumatic pupils equal react to light and accommodation. Extraocular muscles intact, conjunctiva pink, oropharynx moist, no thrush, no exudate. Lymphatic: No lymphadenopathy Cardiovascular exam: S1, S2 was heard. No murmurs, rubs, gallops Lung: Clear on auscultation bilaterally, no wheeze, rale, rhonchi. GI: Abdominal soft, nondistended, nontenderness, positive bowel sounds. Extremity: No crepitus, cyanosis, edema. Pedal pulses present bilateral. Full range of motion. Skin: Normal turgor, no rash. Psych: Alert, oriented x3. Neurology: No focal deficits, cranial nerve II to XII grossly intact. This medical document was created using an electronic medical record system with [employer] direct computerized dictation system. Although this document has been carefully reviewed, there may still be some phonetic and typographical errors. These areas are purely typographical due to imperfections of the software programs, and do not reflect any compromise in the patient's medical care. Condition at Discharge: Guarded Final Diagnosis/Problems List #Acute exacerbation of COPD #Emphysema/COPD #JARRET on CKD #History of essential hypertension #Prediabetic #Extensive osteoarthritis #Gastroesophageal reflux disease-famotidine #Homelessness #Polysubstance abuse # history of tympanic membrane rupture as a child Discharge Disposition: AMA Discharge Instruct/Medications Scheduled Famotidine (Famotidine), 20 MG PO DAILY Levofloxacin Hemihydrate (Levaquin 500 Mg), 500 MG PO DAILY Losartan Potassium (Losartan Potassium), 100 MG PO DAILY Methylprednisolone (Medrol Dosepak), 4 MG PO UD Scheduled PRN Acetaminophen (Acetaminophen), 650 MG PO Q6HP PRN Albuterol Sulfate (Ventolin), 2.5 MG NEB Q4HPRN PRN Ipratropium [place] (Ipratropium [place]), 0.5 MG NEB Q4HPRN PRN Discharge Statement: "Patient was advised to return to the ER or call 911 if any headaches, dizziness, shortness of breath, chest pain, abdominal pain, bleeding, fevers, or worsening of medical condition. Patient was counseled about treatment plan, medications, possible side effects, patientverbalized understanding. All questions were answered to the best of my ability. This discharge took greater then 30 minutes in planning, reviewing documentation, counseling the patient, and discussing with other team members." ASSESSMENT ASSESSMENT Assessment Date of Service: Mar 05, 2025 Billing Provider: KORI RUSSELL MD Common Visit Codes: 21334-XHK/OBS DISCH DAY >30min KORI RUSSELL MD Mar 06, 2025 00:04
[2025-03-06] MEDS ORDERED: FAMOTIDINE 20 MG TAB PO SCH (10:00)
--- NOTE | 2025-03-09 14:18 | ECG ---
[facility] Test Date: 2025-03-05 Test Time: 01:15:25 Pat Name: ROBERTO PEGUERO Department: ED Room: [address] [place] [address] A Gender: M Incident Handler: PATY : 1965 Requested By: TURNER MATA Order Number: [id number] Reading MD: Imer Joseph Measurements Intervals [place] Rate: 76 P: 78 CT: 162 QRS: 72 QRSD: 95 T: 100 QT: 509 QTc: 573 Interpretive Statements Sinus rhythm Nonspecific T abnrm, anterolateral leads Prolonged QT interval Electronically Signed On 03-10-2025 14:51:23 PDT by Imer Joseph Please click the below link to view image of tracing.
== END 2025-03-05 15:29 | disposition left against medical advice (07) | DRG 140 ==
LOC: ER 17:43 → EDBD 17:43 → OVERFLOW 23:15
PROVIDERS: ATTEND Emergency Medicine
DX: J44.1 Chronic obstructive pulmonary disease with (acute) exacerbation (principal); N17.9 Acute kidney failure, unspecified; I12.9 Hypertensive chronic kidney disease with stage 1 through stage 4 chronic kidney disease, or unspecified chronic kidney disease; Z53.29 Procedure and treatment not carried out because of patient's decision for other reasons; J43.9 Emphysema, unspecified; K21.9 Gastro-esophageal reflux disease without esophagitis; N18.9 Chronic kidney disease, unspecified; R73.03 Prediabetes; M19.09 Primary osteoarthritis, other specified site; Z59.00 Homelessness unspecified; Z79.899 Other long term (current) drug therapy
CPT/HCPCS: 36415; 71045; 71250; 76775; 80053; 80307; 80320; 81001; 83036; 83605; 83735; 83880; 84100; 84484; 85025; 87081; 87426; 93005; 93306; 94640; 96374; 99291; G0378

== ENCOUNTER 2025-06-09 13:00 | Inpatient (IN) | payer MEDICAID ==
[~2025-06-09] VITALS: Ht 175.3 cm; Wt 74.0 kg
[2025-06-09 13:39] LABS: Hematocrit 44.5 % (41.0-53.0); Hemoglobin 15.1 g/dL (13.5-17.5); Mean Corpuscular Hemoglobin 30.5 pg (28.0-32.0); Mean Corpuscular Volume 89.7 fL (80.0-100.0); Nucleated Red Blood Cells % 0.1 %
[2025-06-09 13:45] LABS: Chloride 104 mmol/L (98-107); Sodium 143 mmol/L (136-145)
[2025-06-09 13:46] LABS: Anion Gap 9 (5-15); Calcium 9.6 mg/dL (8.7-10.4); Carbon Dioxide 30 mmol/L (20-31)
[2025-06-09 13:51] LABS: BUN/Creatinine Ratio 13.5 (10.0-20.0); Blood Urea Nitrogen 18 mg/dL (9-23); Potassium 3.5 mmol/L (3.5-5.1)
[2025-06-09 13:52] LABS: Glucose 125 mg/dL (74-106)
[2025-06-09] MEDS: ALBUTEROL SULF 2.5 MG/0.5ML(0.5%) NEB SOLN NEB ONE (14:02)
[2025-06-09] MEDS: IPRATROPIUM BROM 0.5 MG/2.5ML INH SOL NEB ONE (14:02)
--- NOTE | 2025-06-09 14:09 | ED.PDOC ---
SOB-HPI HPI Comments 59 y/o M, with PMHx of HTN and COPD presents to the ED for CC of shortness of breath. Patient states, he has been experiencing symptoms of shortness of breath with a persistent non-productive cough x2days. Patient relays, being seen at [facility] for SS yesterday (06/08/25) and ultimately leaving the hospital AMA. Patient denies fever, chills, chest pain, or hemoptysis. Chief Complaint: Shortness of Breath Time Seen by MD: 13:45 Primary Care Provider: NONE Reviewed notes: Nurses Notes, Medications, Allergies Information Source: Patient Mode of Arrival: Ambulatory Severity: Moderate Timing: Days Duration: Since onset Past Medical History PAST MEDICAL HISTORY: COPD, HTN Family History Family History: Reviewed,noncontributory to illness, Unknown Social History Smoker: Cigarettes Alcohol: Denies ETOH Use Drugs: Denies Drug Use Lives In: Home Constitutional: denies: chills, diaphoresis, fatigue, fever, malaise, sweats, weakness, others EENTM: denies: blurred vision, double vision, ear bleeding, ear discharge, ear drainage, ear pain, ear ringing, eye pain, eye redness, hearing loss, mouth pain, mouth swelling, nasal discharge, nose bleeding, nose congestion, nose pain, photophobia, tearing, throat pain, throat swelling, voice changes, others Respiratory: reports: cough, shortness of breath; denies: hemoptysis, orthopnea, SOB at rest, SOB with excertion, stridor, wheezing, others Cardiovascular: denies: chest pain, dizzy spells, diaphoresis, Dyspnea on exertion, edema, irregular heart beat, left arm pain, lightheadedness, palpitations, PND, syncope, others Gastrointestinal: denies: abdomen distended, abdominal pain, blood streaked bowels, constipated, diarrhea, dysphagia, difficulty swallowing, hematemesis, melena, nausea, poor appetite, poor fluid intake, rectal bleeding, rectal pain, vomiting, others Genitourinary: denies: burning, dysuria, flank pain, frequency, hematuria, incontinence, penile discharge, penile sore, pain, testicle pain, testicle swelling, urgency, others Neurological: denies: dizziness, fainting, headache, left sided numbness, left sided weakness, numbness, paresthesia, pre-existing deficit, right sided numbness, right sided weakness, seizure, speech problems, tingling, tremors, weakness, others Musculoskeletal: denies: back pain, gout, joint pain, joint swelling, muscle pain, muscle stiffness, neck pain, others Integumetry: denies: bruises, change in color, change in hair/nails, dryness, laceration, lesions, lumps, rash, wounds, others Allergic/Immunocompromised: denies: Difficulty Healing, Frequent Infections, Hives, Itching, others Hematologic/Lymphatic: denies: anemia, blood clots, easy bleeding, easy bruising, swollen glands, others Endocrine: denies: excessive hunger, excessive sweating, excessive thirst, excessive urination, flushing, intolerance to cold, intolerance to heat, unexplained weight gain, unexplained weight loss, others Psychiatric: denies: anxiety, bipolar disorder, depression, hopeless, panic disorder, schizophrenia, sleepless, suicidal, others All Other Systems: Reviewed and Negative Physical Exam General Appearance: Mild Distress HEENT: Pharynx Normal Neck: Normal Inspection Respiratory: Rhonchi, Wheezing Cardiovascular: No Edema Breast Exam: Deferred Gastrointestinal: Non Tender Genitalia: Deferred Pelvic: Deferred Rectal: Deferred Extremities: No pedal edema Neurologic: No Motor Deficits Cerebellar Function: NOT DONE Reflexes: NOT DONE Skin: Normal Color Lymphatic: NOT DONE Was a procedure done? Was a procedure done?: No Differential Dx Differential Diagnosis: COPD, Pneumonia, Sinusitis, Pharyngitis, URI X-Ray, Labs, Meds, VS Vital Signs Date Time Temp Pulse Resp B/P (MAP) Pulse Ox O2 Delivery O2 Flow Rate FiO2 06/09/25 18:08 188/110 06/09/25 17:48 98.1 72 19 188/110 (136) 98.1 06/09/25 14:40 98.0 93 17 161/98 (119) 98 98.0 06/09/25 14:39 18 Room Air 0 06/09/25 14:38 95 Room Air* 0 21 06/09/25 14:02 18 98 Room Air* 0 21 06/09/25 13:15 91 06/09/25 13:06 98.7 102 20 189/110 95 98.7 Lab Test 06/09/25 16:20 06/09/25 14:30 06/09/25 13:31 Range/Units Troponin I High Sensitivity 11 10 9 </=54 ng/L White Blood Count 12.8 H 4.4-10.8 10^3/uL Red Blood Count 4.97 4.5-5.90 10^6/uL Hemoglobin 15.1 13.5-17.5 g/dL Hematocrit 44.5 41.0-53.0 % Mean Corpuscular Volume 89.7 80.0-100.0 fL Mean Corpuscular Hemoglobin 30.5 28.0-32.0 pg Mean Corpuscular Hemoglobin Concent 34.0 32.0-36.0 g/dL Red Cell Distribution Width 13.7 11.8-14.3 % Platelet Count 263 140-450 10^3/uL Mean Platelet Volume 6.7 L 6.9-10.8 fL Neutrophils (%) (Auto) 72.5 37.0-80.0 % Lymphocytes (%) (Auto) 18.4 10.0-50.0 % Monocytes (%) (Auto) 7.7 0.0-12.0 % Eosinophils (%) (Auto) 0.8 0.0-7.0 % Basophils (%) (Auto) 0.6 0.0-2.0 % Neutrophils # (Auto) 9.3 H 1.6-8.6 10 ^3/uL Lymphocytes # (Auto) 2.4 0.4-5.4 10 ^3/uL Monocytes # (Auto) 1.0 0-1.3 10 ^3/uL Eosinophils # (Auto) 0.1 0-0.8 10 ^3/uL Basophils # (Auto) 0.1 0-0.2 10 ^3/uL Nucleated Red Blood Cells 0.1 % Sodium Level 143 136-145 mmol/L Potassium Level 3.5 3.5-5.1 mmol/L Chloride Level 104 98-107 mmol/L Carbon Dioxide Level 30 20-31 mmol/L Anion Gap 9 5-15 Blood Urea Nitrogen 18 9-23 mg/dL Creatinine 1.33 H 0.700-1.30 mg/dL Glomerular Filtration Rate Calc 62 >90 mL/min BUN/Creatinine Ratio 13.5 10.0-20.0 Serum Glucose 125 H 74-106 mg/dL Hemoglobin A1c 6.0 H <5.7 % A1C Calcium Level 9.6 8.7-10.4 mg/dL B-Type Natriuretic Peptide 29.35 0-100 pg/mL Current Medications Medications (Trade) Dose Ordered Sig/Sherine Route Start Time Stop Time Status Last Admin Albuterol (Ventolin Medneb) 5 mg ONCE ONCE NEB 06/09/25 13:30 06/09/25 13:31 DC 06/09/25 14:02 Ipratropium [place] (Atrovent Medneb) 0.5 mg ONCE ONCE NEB 06/09/25 13:30 06/09/25 13:31 DC 06/09/25 14:02 Methylprednisolone Sodium Succinate (Solu Medrol) 62.5 mg ONCE ONCE IV 06/09/25 13:30 06/09/25 13:31 DC 06/09/25 14:25 Hydralazine HCl (Apresoline Injection) 10 mg ONCE ONCE IV 06/09/25 18:15 06/09/25 18:16 DC 06/09/25 18:08 [place] [id number] Ph: [phone] DIAGNOSTIC IMAGING Diagnostic Imaging Report : [id number] Signed PATIENT: ROBERTO PEGUEROCCT: [id number] UNIT: [id number] : 1965 LOC: ER ROOM / BED: / AGE / SEX: 59 / M ADM STATUS: REG ER SERVICE 1320 ORDERING PHYSICIAN: JOVANNA LOVE MD PROCEDURE(s): CXRP - CHEST PORTABLE REASON: COPD ORDER NUMBER(s): [id number], ACCESSION NUMBER(s): [id number] CLINICAL HISTORY: COPD. TECHNIQUE: Single AP view of the chest was obtained. COMPARISON: XY CHEST PORTABLE on DOS: 06/08/25. FINDINGS: Lungs: Re-demonstrated bandlike opacities of the right midlung zone and bilateral lower lung zones, which favor subsegmental atelectasis and/or scarring. Otherwise, lungs are clear. No consolidation or bhupendra pulmonary edema. Pleura: No pneumothorax or pleural effusion. Cardiomediastinal silhouette: Unremarkable. Aortic atherosclerosis. Bones: No acute osseous abnormality. Imaged Upper Abdomen: unremarkable. IMPRESSION: NO ACUTE CARDIOPULMONARY PROCESS. ATED BY: DEVYN BLANKENSHIP MD DICTATED DATE/TIME: 06/09/251445 SIGNED BY: DEVYN BLANKENSHIP MD SIGNED DATE/TIME: 06/09/251445 CC: Time of 1ST Reevaluation: 14:15 Reevaluation 1ST: Unchanged Patient Education/Counseling: Diagnosis, Treatment Family Education/Counseling: No Family Present SEPSIS Sepsis Screen Date sepsis recognized/suspect: Jun 09, 2025 Time Sepsis recognized/suspect: 1307 Recent Procedure: No On Antibiotic Therapy: No Respiratory Rate >20: No Heart Rate >90: Yes Temp<36 C (96.8 F) or >38.3 C: No SBP <90 or MAP <65 mmHG: No New Acute Mental Status Change: No Is the patient on CPAP, BIPAP,: No Physician Orders Chest Portable (06/09/25 13:20) Electrocardigram (06/09/25 14:20) Electrocardigram (06/09/25 16:20) Vital Signs Date Time Temp Pulse Resp B/P (MAP) Pulse Ox O2 Delivery O2 Flow Rate FiO2 06/09/25 18:08 188/110 06/09/25 17:48 98.1 72 19 188/110 (136) 98.1 06/09/25 14:40 98.0 93 17 161/98 (119) 98 98.0 06/09/25 14:39 18 Room Air 0 06/09/25 14:38 95 Room Air* 0 21 06/09/25 14:02 18 98 Room Air* 0 21 06/09/25 13:15 91 06/09/25 13:06 98.7 102 20 189/110 95 98.7 Laboratory Tests Test 06/09/25 13:31 White Blood Count 12.8 10^3/uL (4.4-10.8) H Departure 1 Departure Time of Disposition: 17:33 (Patient presented with acute shortness of breath concerning for acute on chronic COPD Exacerbation, Pneumonia, ACS, CHF, Pneumothorax. Less likely PE, Dissection. Data: 1. I ordered and reviewed the result of at least 3 labs including a CBC, BMP, and Troponin. 2. I independently interpreted the following tests: Chest X-ray shows benign chest .Risk:This patient has a high risk of morbidity due to further diagnostic testing or treatment and may suffer from respiratory or cardiac etiology . Workup reveals a likely COPD Exacerbation and patient should be admitted for further workup. and possible expert consultation.) Impression: Primary Impression: Acute respiratory failure with hypoxia Additional Impression: COPD exacerbation Disposition: ADMITTED INPATIENT Admit to: Tele Condition: Guarded Critical Care Note Critical Care Time?: Yes Critical care comment: Acute Respiratory failure Authorized and Performed by: Jovanna Love MD Total critical care time: Approximately 39 minutes Due to a high probability of clinically significant, life threatening deterioration, the patient required my highest level of preparedness to intervene emergently and I personally spent this critical care time directly and personally managing the patient. This critical care time included obtaining a h istory; examining the patient; pulse oximetry; ordering and review of studies; arranging urgent treatment with development of a management plan; evaluation of patient's response to treatment; frequent reassessment; and, discussions with other providers. This critical care time was performed to assess and manage the high probability of imminent, life-threatening deterioration that could result in multi-organ failure. It was exclusive of separately billable procedures and treating other patients and teaching time. Please see my other sections and the rest of the note for further information on patient assessment and treatment. Stability Stability form required: No Heart Score Heart Score: Heart Score Response (Comments) Value History N/A 0 EKG N/A 0 Age N/A 0 Risk Factors N/A 0 Troponin N/A 0 Total 0 I personally scribed for JOVANNA LOVE MD ([email or web address]) on 06/09/25 at 14:09. Electronically submitted by Nata Beltran ([email or web address]). I personally scribed for JOVANNA LOVE MD ([email or web address]) on 06/09/25 at 15:35. Electronically submitted by Nata Beltran ([email or web address]). JOVANNA LOVE MD Jun 09, 2025 14:09
[2025-06-09] MEDS: methylPREDNISolone SOD SUCC 125 MG/2 ML VL IV ONE (14:25)
--- NOTE | 2025-06-09 14:48 | DVH ---
CLINICAL HISTORY: COPD. TECHNIQUE: Single AP view of the chest was obtained. COMPARISON: XY CHEST PORTABLE on DOS: 06/08/25. FINDINGS: Lungs: Re-demonstrated bandlike opacities of the right midlung zone and bilateral lower lung zones, which favor subsegmental atelectasis and/or scarring. Otherwise, lungs are clear. No consolidation or bhupendra pulmonary edema. Pleura: No pneumothorax or pleural effusion. Cardiomediastinal silhouette: Unremarkable. Aortic atherosclerosis. Bones: No acute osseous abnormality. Imaged Upper Abdomen: unremarkable. IMPRESSION: NO ACUTE CARDIOPULMONARY PROCESS.
[2025-06-09] MEDS: hydrALAZINE HCL 20 MG/ML VL IV ONE (18:08)
[2025-06-09] MEDS ORDERED: ACETAMINOPHEN 325 MG TAB PO PRN (19:00)
[2025-06-09] MEDS ORDERED: HYDROcodone-ACET 5/325MG TAB PO PRN (19:00)
[2025-06-09 19:23] VITALS: BP 161/98; PULSE 93; RESP 18; TEMP 98.1; O2SAT 98
--- NOTE | 2025-06-09 19:33 | DVHHP2 ---
MERAZ ZURI Perez RESIDENT 06/09/251931: History of Present Illness History of Present Illness 59-year-old male with history of hypertension and COPD who presents with worsening shortness of breath. He reports smoking one pack per day since age 18 and was previously diagnosed with COPD but does not use his inhalers. He is also non-compliant with his blood pressure medications. He states he has had chronic shortness of breath for three years, with noticeable worsening over the last three days. He reports cough with white sputum and chills. No chest pain, no palpitations, no nausea, and no other complaints. He will be admitted for further evaluation and management. Past Medical History Hypertension, COPD. Past Surgical History Denies surgeries. Social History Active smoker, 1 pack/day since age 18. No alcohol or illicit drugs reported. Homeless situation Allergies Penicillin. Medications Not compliant with any prescribed medications. Review of Systems Negative except as stated in HPI. CBC: WBC 12.8. CMP: Mild JARRET with Cr 1.3. Troponins negative. CXR: Emphysematous changes. COVID/Influenza pending. Review of Systems Allergies: Coded Allergies: Penicillins (Verified Allergy, Unknown, 10/11/23) Medications Current Medications Medications Dose Ordered Sig/Sherine Route Start Time Stop Time Status Last Admin Dose Admin Acetaminophen 650 mg Q6HP PRN PO 06/09/25 19:00 UNV Acetaminophen/ Hydrocodone Bitart 1 tab Q4HP PRN PO 06/09/25 19:00 UNV Enoxaparin Sodium 40 mg DAILY SC 06/10/25 10:00 UNV Ceftriaxone Sodium 50 ml @ 100 mls/hr DAILY@09 IV 06/10/25 09:00 UNV Azithromycin 250 ml @ 125 mls/hr DAILY IV 06/10/25 10:00 UNV Albuterol 2.5 mg Q6HWA [facility] 06/10/25 06:00 UNV Ipratropium [place] 0.5 mg Q6HWA NEB 06/10/25 06:00 UNV Methylprednisolone Sodium Succinate 40 mg BID IV 06/09/25 22:00 UNV Nifedipine 90 mg DAILY PO 06/09/25 19:15 UNV Exam Vital Signs Vital Signs Date Time Temp Pulse Resp B/P (MAP) Pulse Ox O2 Delivery O2 Flow Rate FiO2 06/09/25 18:08 188/110 06/09/25 17:48 98.1 72 19 98.1 06/09/25 14:40 98 06/09/25 14:39 Room Air 0 06/09/25 14:38 21 Exam General: Alert, no acute distress. HEENT: No pharyngeal erythema. Neck: Supple. Cardiac: Regular rhythm, no murmurs. Lungs: Diffuse wheezes, no crackles. Abdomen: Soft, nondistended, nontender. Extremities: No edema. Neuro: Nonfocal, alert and oriented. Labs/Xrays Labs Test 06/09/25 16:20 06/09/25 13:31 Range/Units Troponin I High Sensitivity 11 </=54 ng/L White Blood Count 12.8 H 4.4-10.8 10^3/uL Red Blood Count 4.97 4.5-5.90 10^6/uL Hemoglobin 15.1 13.5-17.5 g/dL Hematocrit 44.5 41.0-53.0 % Mean Corpuscular Volume 89.7 80.0-100.0 fL Mean Corpuscular Hemoglobin 30.5 28.0-32.0 pg Mean Corpuscular Hemoglobin Concent 34.0 32.0-36.0 g/dL Red Cell Distribution Width 13.7 11.8-14.3 % Platelet Count 263 140-450 10^3/uL Mean Platelet Volume 6.7 L 6.9-10.8 fL Neutrophils (%) (Auto) 72.5 37.0-80.0 % Lymphocytes (%) (Auto) 18.4 10.0-50.0 % Monocytes (%) (Auto) 7.7 0.0-12.0 % Eosinophils (%) (Auto) 0.8 0.0-7.0 % Basophils (%) (Auto) 0.6 0.0-2.0 % Neutrophils # (Auto) 9.3 H 1.6-8.6 10 ^3/uL Lymphocytes # (Auto) 2.4 0.4-5.4 10 ^3/uL Monocytes # (Auto) 1.0 0-1.3 10 ^3/uL Eosinophils # (Auto) 0.1 0-0.8 10 ^3/uL Basophils # (Auto) 0.1 0-0.2 10 ^3/uL Nucleated Red Blood Cells 0.1 % Sodium Level 143 136-145 mmol/L Potassium Level 3.5 3.5-5.1 mmol/L Chloride Level 104 98-107 mmol/L Carbon Dioxide Level 30 20-31 mmol/L Anion Gap 9 5-15 Blood Urea Nitrogen 18 9-23 mg/dL Creatinine 1.33 H 0.700-1.30 mg/dL Glomerular Filtration Rate Calc 62 >90 mL/min BUN/Creatinine Ratio 13.5 10.0-20.0 Serum Glucose 125 H 74-106 mg/dL Calcium Level 9.6 8.7-10.4 mg/dL B-Type Natriuretic Peptide 29.35 0-100 pg/mL SEPSIS Sepsis Screen Date sepsis recognized/suspect: Jun 09, 2025 Time Sepsis recognized/suspect: 1814 Recent Procedure: No On Antibiotic Therapy: No Respiratory Rate >20: No Heart Rate >90: No Temp<36 C (96.8 F) or >38.3 C: No SBP <90 or MAP <65 mmHG: No New Acute Mental Status Change: No Is the patient on CPAP, BIPAP,: No Physician Orders Chest Portable (06/09/25 13:20) Electrocardigram (06/09/25 13:20) Electrocardigram (06/09/25 14:20) Electrocardigram (06/09/25 16:20) Admit (06/09/25 18:52) Code Status (06/09/25 18:52) Vital Signs .PER UNIT PROTOCOL (06/09/25 18:52) Review Orders With Adm. (06/09/25 18:52) Consistent Carb(Ccho)Diabetes (06/10/25 Breakfast) Acetaminophen Tablet (Tylenol Tablet) (06/09/25 19:00) Notify Md Of Changes From Base (06/09/25 18:52) Advance Directive (06/09/25 18:52) Urinalysis (06/09/25 18:52) Blood Culture (06/09/25 18:52) Patient Condition (06/09/25 18:52) Allergies (06/09/25 18:52) Hydrocodone-Acet 5/325mg Tab ([place] 5/32 (06/09/25 19:00) Drug Screen (06/09/25 18:52) Hemoglobin A1c (06/09/25 18:52) Enoxaparin Sodium (Lovenox) (06/10/25 10:00) Oxygen By Nasal Cannula (06/09/25 18:52) Stat Ekg For Chest Pain (06/09/25 18:52) Notify Of Changes From Base (06/09/25 18:52) [employer] For 24 Hours (06/09/25 18:52) Emergency Dysrhythmia Protocol (06/09/25 18:52) Rhythm Strips Once Every Shift (06/09/25 18:52) Ceftriaxone 1gm/50ml (Rocephin) (06/10/25 09:00) Azithromycin 500mg/250ml (Zithromax 500m (06/10/25 10:00) Rapid Influenza A&B (06/09/25 19:05) Covid19 Antigen Talia (06/09/25 ) Albuterol Medneb (Ventolin Medneb) (06/10/25 06:00) Ipratropium Medneb (Atrovent Medneb) (06/10/25 06:00) Methylprednisolone Sod Succ (Solu Medrol (06/09/25 22:00) Nifedipine Er (Procardia Xl (Time-Releas (06/09/25 19:15) Vital Signs Date Time Temp Pulse Resp B/P (MAP) Pulse Ox O2 Delivery O2 Flow Rate FiO2 06/09/25 18:08 188/110 06/09/25 17:48 98.1 72 19 188/110 (136) 98.1 06/09/25 14:40 98.0 93 17 161/98 (119) 98 98.0 06/09/25 14:39 18 Room Air 0 06/09/25 14:38 95 Room Air* 0 21 06/09/25 14:02 18 98 Room Air* 0 21 06/09/25 13:15 91 06/09/25 13:06 98.7 102 20 189/110 95 98.7 Laboratory Tests Test 06/09/25 13:31 White Blood Count 12.8 10^3/uL (4.4-10.8) H Medications Medications Dose Ordered Sig/Sherine Route Start Time Stop Time Status Last Admin Dose Admin Albuterol 5 mg ONCE ONCE NEB 06/09/25 13:30 06/09/25 13:31 DC 06/09/25 14:02 5 MG Hydralazine HCl 10 mg ONCE ONCE IV 06/09/25 18:15 06/09/25 18:16 DC 06/09/25 18:08 10 MG Ipratropium [place] 0.5 mg ONCE ONCE NEB 06/09/25 13:30 06/09/25 13:31 DC 06/09/25 14:02 0.5 MG Methylprednisolone Sodium Succinate 62.5 mg ONCE ONCE IV 06/09/25 13:30 06/09/25 13:31 DC 06/09/25 14:25 62.5 MG Assessment/Plan Assessment/Plan # Chronic obstructive pulmonary disease with acute exacerbation Likely precipitated by infection and medication non-adherence. Starting bronchodilator therapy, systemic steroids, azithromycin, and ceftriaxone. . COVID and influenza testing pending. # Hypertensive emergency with JARRET Uncontrolled due to medication noncompliance. Initiated nifedipine ER 90 mg and will monitor blood pressure closely with adjustments as needed. Avoid nephrotoxic agents given JARRET. Hydralazine already given # Acute kidney injury Possible due to JARRET Case discussed with Dr Payne Full code Plan discussed with: Patient, Other (rn) My Orders Orders - ZURI SANTANA RESIDENT Procedure Category Date Status Time Admit ADMIT 06/09/25 Transmitted 18:52 Code Status CODE 06/09/25 Transmitted 18:52 Vital Signs AROLDO 06/09/25 In Process 18:52 Review Orders With AROLDO 06/09/25 In Process Adm. 18:52 Consistent DIET 06/10/25 Transmitted Carb(Ccho)Diabetes Breakfast Acetaminophen Tablet PHA 06/09/25 Logged (Tylenol Tablet) 19:00 Notify Of Changes AROLDO 06/09/25 In Process From Base 18:52 Advance Directive AROLDO 06/09/25 In Process 18:52 Urinalysis LAB 06/09/25 Logged 18:52 Blood Culture SAVANNA 06/09/25 Logged 18:52 Patient Condition ORDERS 06/09/25 Transmitted 18:52 Allergies AROLDO 06/09/25 In Process 18:52 Hydrocodone-Acet PHA 06/09/25 Logged 5/325mg Tab ([place] 19:00 Drug Screen LAB 06/09/25 Logged 18:52 Hemoglobin A1c LAB 06/09/25 In Process 18:52 Enoxaparin Sodium PHA 06/10/25 Logged (Lovenox) 10:00 Oxygen By Nasal RT 06/09/25 Transmitted Cannula 18:52 Stat Ekg For Chest AROLDO 06/09/25 In Process Pain 18:52 Notify Of Changes [facility] 06/09/25 In Process From Base 18:52 [employer] For [facility] 06/09/25 In Process 24 Hours 18:52 Emergency Dysrhythmia [facility] 06/09/25 In Process Protocol 18:52 Rhythm Strips Once [facility] 06/09/25 In Process Every Shift 18:52 Ceftriaxone 1gm/50ml PHA 06/10/25 Logged (Rocephin) 09:00 Azithromycin PHA 06/10/25 Logged 500mg/250ml 10:00 Rapid Influenza A&B LAB 06/09/25 Logged 19:05 Covid19 Antigen Talia LAB 06/09/25 Logged Albuterol Medneb PHA 06/10/25 Logged (Ventolin Medneb) 06:00 Ipratropium Medneb PHA 06/10/25 Logged (Atrovent Medneb) 06:00 Methylprednisolone PHA 06/09/25 Logged Sod Succ (Solu Medrol 22:00 Nifedipine Er PHA 06/09/25 Logged (Procardia Xl 19:15 Date of Service: Jun 09, 2025 Billing Provider: ZURI SANTANA Common Visit Codes: [id number] INP/OBS CARE (HIGH) BANDAR PAYNE MD 06/10/25 1500: Review of Systems Allergies: Coded Allergies: Penicillins (Verified Allergy, Unknown, 10/11/23) Secondary Visit Codes: [id number] CARE PLAN 30 MINUTES ZURI SANTANA Jun 09, 2025 19:32 BANDAR PAYNE MD Jun 10, 2025 15:00
[2025-06-09 20:45] VITALS: TEMP 99.9
[2025-06-09 21:24] LABS: Lactic Acid w/Reflex 3.2 mmol/L (0.4-2.0)
[2025-06-09 21:29] LABS: COVID19 ANTIGEN SOFIA FIA NEGATIVE (NEGATIVE)
[2025-06-09] MEDS: SODIUM CHLORIDE 0.9% 1,000 ML IV ONE (22:11)
[2025-06-09] MEDS: methylPREDNISolone SOD SUCC 40 MG/ML VL IV SCH (22:12)
[2025-06-09 22:21] VITALS: PULSE 97; RESP 18; O2SAT 96
[2025-06-09 22:30] VITALS: BP 161/104; PULSE 108; RESP 18; O2SAT 96
[2025-06-09 22:36] LABS: Urine Protein, UAD Negative (Negative)
[2025-06-09] MEDS: AZITHROMYCIN 500MG/250ML 250 ML IV ONE (22:41)
[2025-06-09] MEDS ORDERED: LABETALOL HCL 20 MG/4 ML VL IV PRN (23:00)
[2025-06-09 23:21] LABS: Amphetamine Screen, Urine POSITIVE (NEGATIVE)
[2025-06-09 23:22] LABS: Barbiturate Scree,Urine NEGATIVE (NEGATIVE); Benzodiazephine Screen, Urine NEGATIVE (NEGATIVE); Cannabinoid Screen, Urine NEGATIVE (NEGATIVE); Cocaine Screen, Urine NEGATIVE (NEGATIVE); Opiate Scree,Urine NEGATIVE (NEGATIVE); Phencyclidine Screen, Urine NEGATIVE (NEGATIVE)
[2025-06-10] MEDS ORDERED: IPRATROPIUM BROM 0.5 MG/2.5ML INH SOL NEB SCH (06:00)
[2025-06-10] MEDS ORDERED: ALBUTEROL SULF 2.5 MG/0.5ML(0.5%) NEB SOLN NEB SCH (06:00)
[2025-06-10] MEDS ORDERED: AZITHROMYCIN 500MG/250ML 250 ML IV SCH (10:00)
[2025-06-10] MEDS ORDERED: ENOXAPARIN SOD 40 MG/0.4 ML SYRINGE SC SCH (10:00)
--- NOTE | 2025-06-10 10:15 | ECG ---
[facility] Test Date: 2025-06-09 Test Time: 13:15:15 Pat Name: ROBERTO PEGUERO Department: Room: [address] [place] [address] Gender: M Manager Site: [place] : 1965 Requested By: JOVANNA CRUZ Order Number: [id number] Reading MD: Imer Joseph Measurements Intervals [place] Rate: 91 P: 82 TX: 156 QRS: 78 QRSD: 83 T: 73 QT: 368 QTc: 453 Interpretive Statements Sinus rhythm Electronically Signed On 06-16-2025 18:42:22 PST by Imer Joseph Please click the below link to view image of tracing.
== END 2025-06-09 23:28 | disposition left against medical advice (07) | DRG 133 ==
LOC: ER 13:00 → OVERFLOW 18:52
PROVIDERS: ATTEND Emergency Medicine
DX: J96.01 Acute respiratory failure with hypoxia (principal); I16.1 Hypertensive emergency; N17.9 Acute kidney failure, unspecified; Z59.00 Homelessness unspecified; J44.1 Chronic obstructive pulmonary disease with (acute) exacerbation; Z20.822 Contact with and (suspected) exposure to COVID-19; I10 Essential (primary) hypertension; F17.210 Nicotine dependence, cigarettes, uncomplicated; Z53.29 Procedure and treatment not carried out because of patient's decision for other reasons; Z88.0 Allergy status to penicillin; Z91.148 Patient's other noncompliance with medication regimen for other reason
CPT/HCPCS: 36415; 71045; 80048; 80307; 81001; 83036; 83605; 83880; 84484; 85025; 87040; 87426; 87804; 93005; 94640; 99291; G0378